=== PATIENT | female | born 1950 | race Caucasian/White ===

== ENCOUNTER → 2019-12-04 09:42 | Outpatient (CLI) | payer MEDICARE, SELFPAY ==
--- NOTE | ~2019-12-04 | MR_ITS ---
EXAMINATION: MR brain/brain stem wo/w con EXAM DATE: 12/04/2019 10:50 INDICATION: History of left frontal brain tumor removal 2018. Follow-up. TECHNIQUE: Magnetic resonance imaging (MRI) of the brain/brain stem obtained without contrast. Sagit zoey T1, axial diffusion, gradient echo (T2*), T1, T2, FLAIR sequences obtained. Patient was then inj ected with 20 cc intravenous Multihance contrast. Axial and coronal postcontrast T1 weighted sequence s obtained. Correlation is made to head CT 06/19/2017. FINDINGS: Previous CT had large left frontal mass believed to be extra-axial. Correlate with histolog y. In this location there is now moderate-sized region of encephalomalacia with overlying craniotomy defect. Some adjacent cortical T1 hyperintensity consistent with laminar necrosis. There is ex vacuo dilation of the left lateral ventricle. No obstructive hydrocephalus, acute infarction or extra-axial collections. There is no acute hemorrhage seen on the T2*, a susceptibility sensitive sequence. Flow voids are seen in the cerebral arteries on the T2 weighted sequences consistent with their expected patency. Small right maxillary sinus mucous retention cyst. Right-sided cataract surgery. There are n o areas of abnormal enhancement on the post contrast images. IMPRESSION: 1. Left frontal encephalomalacia without evidence of local recurrence. Reviewed, dictated and finalized at location B.
[2019-12-04 10:26] LABS: Estimated Glomerular Filt Rate > 60
== END ==
PROVIDERS: PCP Nurse Practitioner Family; Visit Provider Nurse Practitioner Family
DX: G93.89 Other specified disorders of brain (principal)
CPT/HCPCS: 70553; A9577

== ENCOUNTER 2022-01-11 14:12 | Emergency (ER) | payer MEDICARE, SELFPAY ==
--- NOTE | ~2022-01-11 | US_ITS ---
EXAMINATION: US pelvic complete w TV DATE: 01/11/2022 17:37 INDICATION: vaginal bleeding TECHNIQUE: Multiple transabdominal and endovaginal sonographic images of the pelvis were obtained. COMPARISON: CT abdomen and pelvis 10/10/2018 FINDINGS: Uterus: 10.0 x 5.4 x 4.7 cm. Endometrial complex measures 20 mm mm. Poor visualization of the uterus and endometrial stripe with the endovaginal probe. Right Ovary: Not visualized. Left Ovary: Not visualized. There is no free fluid in the pelvis. IMPRESSION: Limited examination. Neither ovary is visualized. Thickened endometrium measuring up to 20 mm, recomm end gynecology referral and consideration for endometrial biopsy. Reviewed, dictated and finalized at location K. IMPRESSION: Limited examination. Neither ovary is visualized. Thickened endometrium measuri ng up to 20 mm, recommend gynecology referral and consideration for endometrial biopsy.
[2022-01-11 15:09] VITALS: BP 177/78; PULSE 79; RESP 16; TEMP 36.2; O2SAT 94
[2022-01-11 15:24] LABS: Basophils Absolute Auto 0.1 K/mm3 (0.0-0.1); Basophils Percent Auto 0.5 % (0.2-1.2); Eosinophils Absolute Auto 0.4 K/mm3 (0-0.3); Eosinophils Percent Auto 2.9 % (0-4.4); Hematocrit 43.2 % (37.0-47.0); Hemoglobin 13.5 g/dL (12.0-15.0); Immature Granulocyte Absolute 0.04 K/mm3 (0.00-0.031); Immature Granulocyte Percent A 0.3 % (0-0.5); Lymphocytes Absolute Auto 3.83 K/mm3 (0.9-3.2); Lymphocytes Percent Auto 29.7 % (18.3-44.2); Mean Corpuscular HGB Conc 31.3 g/dl (32-36); Mean Corpuscular Volume 99.1 fl (80-100); Monocytes Absolute Auto 1.1 K/mm3 (0.1-0.6); Monocytes Percent Auto 8.6 % (2.6-8.5); Neutrophils Absolute Auto 7.5 K/mm3 (1.3-6.7); Platelet Count Result 345 k/mm3 (150-375); Red Blood Count 4.36 M/mm3 (4.2-5.4); Red Cell Distribution Width 13.5 % (11.5-14.5); White Blood Count 12.9 K/mm3 (4.5-10.0)
[2022-01-11 15:34] LABS: Alanine Aminotransferase 24 U/L (6-35); Albumin Level 4.4 g/dL (3.5-5.1); Alkaline Phosphatase 134 U/L (38-126); Anion Gap 10 mmol/L (8-16); Aspartate Amino Transferase 21 U/L (14-36); Bilirubin,Total 0.4 mg/dL (0.2-1.3); Blood Urea Nitrogen 22 mg/dL (7-17); Calcium 9.5 mg/dL (8.4-10.2); Carbon Dioxide 29 mmol/L (22-30); Chloride 100 mmol/L (98-107); Estimated CRCL calculation 72 ml/min; Estimated Glomerular Filt Rate > 60; Glucose 142 mg/dL (65-110); Potassium 4.6 mmol/L (3.4-5.0); Sodium 139 mmol/L (137-145)
[2022-01-11 17:02] VITALS: BP 153/91; PULSE 73; RESP 18; O2SAT 91
--- NOTE | 2022-01-11 17:46 | ED.GENADULT ---
HPI - General Adult General Chief complaint: Vaginal Bleeding Stated complaint: vaginal bleeding Time Seen by Provider: 01/11/22 17:02 History of Present Illness HPI narrative: 71-year-old male presented the emergency department for evaluation of vaginal bleeding. Patient states she went through menopause approximately 15 years ago. Patient has not had follow-up with [facility] in many years. Patient states approximate 2 weeks ago she began having some spotting and the spotting did increase to vaginal bleeding. Patient states that she was set up to see Dr. Barcenas but she wanted to have this taken care of earlier so she presented to the emergency department for evaluation. Patient denies any lightheaded dizziness. Patient denies any pain with this. Related Data Allergies Allergy/AdvReac Type Severity Reaction Status Date / Time codeine Allergy Unknown Nausea and Verified 01/11/22 17:03 Vomiting Review of Systems Review of Systems: CONSTITUTIONAL: Denies fever, chills, or sweats. EYES: Denies visual changes, redness, or discharge. ENT: Denies rhinorrhea, congestion, sore throat, or otalgia. CARDIOVASCULAR: Denies chest pain, palpitations, or edema. RESPIRATORY: Denies cough or dyspnea. GASTROINTESTINAL: Denies abdominal pain, nausea, vomiting, or diarrhea. GENITOURINARY: Denies dysuria or hematuria. See HPI, vaginal bleeding. SKIN: Denies rash or itching. MUSCULOSKELETAL: Denies back pain, joint pain, or myalgia. NEUROLOGIC: Denies headache, numbness, or weakness. [facility] Family History Family History (Updated 12/14/14 @ 16:53 by DOCTOR UNKNOWN) Father Cerebrovascular accident Family history of coronary artery disease Social History Social History Alcohol intake: never Exam Narrative: APPEARANCE: Well appearing, no pain, no distress, well-nourished. HEAD: normocephalic, atraumatic. EYES: PERRLA/EOMI, conjunctivae clear. NOSE: Normal no drainage NECK: Supple. No adenopathy, no masses. RESPIRATORY: Airway patent, respirations nonlabored. Clear to auscultation bilaterally, no rales, rhonchi, wheezing. CARDIOVASCULAR: Regular rate and rhythm without murmurs rubs or gallops. ABDOMINAL: Soft, nontender, nondistended, normal bowel sounds Genitourinary: Bleeding is coming from the cervix. Cervix is closed. No vaginal laceration. No rapid refilling of the vaginal vault. No evidence of hemorrhage MUSCULOSKELETAL: Moves all extremities. Strength/ROM intact, No edema, No calf tenderness. NEURO: Alert. Cranial nerves II through XII intact. Grossly intact SKIN: Warm, dry. Normal Color Course Course Emergency Course: Patient hemoglobin is stable. Patient had normal vital signs. Discussed case with [facility], Dr. Mtz. He was updated on the results of the imaging and was comfortable to plan patient having close outpatient follow-up. Patient and family were also encouraged to have close follow-up. All question concerns were addressed. Vital Signs Vital signs: Vital Signs Temperature 97.2 F L 01/11/22 15:09 Pulse Rate 79 01/11/22 15:09 Respiratory Rate 16 01/11/22 15:09 Blood Pressure 177/78 H 01/11/22 15:09 Pulse Oximetry 94 01/11/22 15:09 Temperature 98.3 F 01/11/22 18:50 Pulse Rate 84 01/11/22 18:50 Respiratory Rate 20 01/11/22 18:50 Blood Pressure 142/80 H 01/11/22 18:50 Pulse Oximetry 94 01/11/22 18:50 Medical Decision Making Vital Signs Vital Signs: Vital Signs Temperature 97.2 F L 01/11/22 15:09 Pulse Rate 79 01/11/22 15:09 Respiratory Rate 16 01/11/22 15:09 Blood Pressure 177/78 H 01/11/22 15:09 Pulse Oximetry 94 01/11/22 15:09 Temperature 98.3 F 01/11/22 18:50 Pulse Rate 84 01/11/22 18:50 Respiratory Rate 20 01/11/22 18:50 Blood Pressure 142/80 H 01/11/22 18:50 Pulse Oximetry 94 01/11/22 18:50 Lab Data Lab results reviewed: Yes I reviewed the patient's lab results. Result diagrams: 01/11/22 15:17
[2022-01-11 18:50] VITALS: BP 142/80; PULSE 84; RESP 20; TEMP 36.8; O2SAT 94
== END 2022-01-11 18:57 | disposition home or self-care (01) ==
PROVIDERS: Emergency Medicine; Emergency Provider Emergency Medicine; PCP Nurse Practitioner Family
DX: N93.9 Abnormal uterine and vaginal bleeding, unspecified (principal)
CPT/HCPCS: 36415; 76830; 76856; 80053; 85025; 86850; 86900; 86901; 99284

== ENCOUNTER 2022-01-20 02:04 | Day surgery (SDC) | payer MEDICARE, SELFPAY ==
[2022-01-13 09:26] VITALS: BMI 54.6
--- NOTE | 2022-01-13 09:47 | PC.NURSE ---
Report to the Outpatient Waiting Room, entrance under the green pavilion located off [facility], at time 1130 on date __01/20/22 . Planned Procedure Time: _1330 . Time changes happen often and if your time is changed the preop area will call you the afternoon before. - You and your visitor will be asked to self-screen and do not enter if you have any COVID symptoms. - We encourage only one visitor and NO visitors under age 16 are allowed at this time. Your visitor will receive communication by the phone number that is given day of service. - The patient visitor is requested to social distance or may leave the building when not with patient due to restrictions. - A mask is required within the hospital. Patients may have clear liquids (water, carbonated beverages, clear teas, apple juice) until 3 hours prior to surgery with a maximum of 20 ounces. - No food from midnight until time of surgery - Infants may have breast milk until 4 hours before surgery, infant formula 6 hours prior to surgery. - Children will be allowed to drink immediately following surgery. If applicable, please bring a bottle or sippy cup to assist with drinking. Juice, water, soda, and popsicles are readily available. For infants on formula, please bring formula the day of surgery. Pacifiers are allowed. Take the following medications with a SIP of water the morning of surgery: __ALPRAZOLAM,AMLODIPINE,GABAPENTIN Medications to discontinue per physician ____ALL VITAMINS AND SUPPLEMENTS 3 DAYS PRE OP Date to take last dose 01/16/22 Please no make-up, nail south korean, hairspray, perfume, deodorant, or body powder the day of surgery. No jewelry (including any body piercings) or valuables the day of surgery, leave them at home. Please take a shower or bath the night before, or the morning of, surgery with an antibacterial soap. Wear comfortable, loose fitting clothing. Children are encouraged to wear pajamas. - Jewelry must be removed prior to entering the operating room. Rings and piercings that are not removed may be cut off. - The hospital will not accept responsibility for valuables. - Please leave all valuables, including medications, at home the day of surgery. If you are going home after surgery, a licensed utility worker driver must drive you home. - NO public transportation without another adult. - We recommend that an adult stay with you for 24 hours following discharge. - We also recommend that you do not drive, make important decision, drink alcoholic beverages, or take any drugs that were not prescribed by your health care provider for at least 24 hours after your discharge time. For Pediatric surgeries, we recommend two adults accompany the child home. Follow any additional instructions given to you from your surgeon. If you or anyone in your household have experienced Covid symptoms in the past week, please notify your surgeon or the nurse liaison at the phone number below for possible testing. Telephone instructions given to _PATIENT AND DAUGHTER KHAI PEREZ/ FAXED 01/13/22 AT 0918 TO [facility] ATTEN: FEMI #[phone] dat asked if any additional questions and then verbalized understanding. Patient advised to call surgeon office or pre surgery nurse liaison [phone] if any additional questions.
--- NOTE | 2022-01-17 11:40 | PM.IMHP ---
H&P: HPI History of Present Illness Date/Time: 01/17/22 11:40 Chief Complaint: Postmenopausal bleeding Narrative: To 71-year-old female who is admitted through the ER with complaints of vaginal bleeding. She is admitted for diagnostic hysteroscopy dilatation curettage. Risks and benefits have been reviewed in full. She received the ACO[employer] handouts entitled hysteroscopy as well as dilatation curettage respectively. She had all questions answered and asked to proceed PMF Family History Family History Father Cerebrovascular accident Family history of coronary artery disease Social History Social History Smoking packs per day: 0.5 Smoking cigarettes per day: 10.0 Years smoked: 38 Smoking pack-years: 19.00 Smoking status: Current every day smoker Tobacco type: cigarettes Alcohol intake: never Living arrangements: assisted living Spiritual care concerns: No Meds Home Medications and Allergies Home Medications Medication Instructions Recorded Confirmed Type acetaminophen 650 mg 1,300 mg PO Q8-10H PRN Pain 01/13/22 01/13/22 History tablet,extended release alprazolam 0.5 mg tablet,extended 0.5 mg PO DAILY 01/13/22 01/13/22 History release 24 hr amlodipine 2.5 mg tablet 2.5 mg PO DAILY 01/13/22 01/13/22 History atorvastatin 40 mg tablet 40 mg PO DAILY 01/13/22 01/13/22 History cyanocobalamin (vitamin B-12) 1,000 mcg PO DAILY 01/13/22 01/13/22 History 1,000 mcg tablet diclofenac sodium 1 % topical gel 2 g topical QID 01/13/22 01/13/22 History docusate sodium 100 mg tablet 100 mg PO PRN PRN Constipation 01/13/22 01/13/22 History ergocalciferol (vitamin D2) 1,250 50,000 unit PO WEEKLY 01/13/22 01/13/22 History mcg (50,000 unit) capsule (Vitamin D2) furosemide 40 mg tablet 40 mg PO PRN PRN Edema 01/13/22 01/13/22 History gabapentin 300 mg capsule 300 mg PO BID 01/13/22 01/13/22 History ibuprofen 800 mg tablet 800 mg PO TID PRN Pain 01/13/22 01/13/22 History insulin glargine 100 unit/mL (3 66 unit subcut DAILY 01/13/22 01/13/22 History mL) subcutaneous pen (Lantus Solostar U-100 Insulin) losartan 25 mg tablet 25 mg PO DAILY 01/13/22 01/13/22 History magnesium oxide 400 mg (241.3 mg 400 mg PO BID 01/13/22 01/13/22 History magnesium) tablet melatonin 5 mg tablet 5 mg PO HS 01/13/22 01/13/22 History mirabegron 50 mg tablet,extended 50 mg PO HS 01/13/22 01/13/22 History release 24 hr (Myrbetriq) nystatin 100,000 unit/gram topical 1 applic topical PRN PRN Rash 01/13/22 01/13/22 History cream quetiapine 25 mg tablet 25 mg PO HS 01/13/22 01/13/22 History semaglutide 1 mg/dose (4 mg/3 mL) 1 mg subcut WEEKLY 01/13/22 01/13/22 History subcutaneous pen injector (Ozempic) tamsulosin 0.4 mg capsule 0.4 mg PO HS 01/13/22 01/13/22 History triamcinolone acetonide 0.1 % 1 applic topical PRN PRN Itching 01/13/22 01/13/22 History topical cream Allergies Allergy/AdvReac Type Severity Reaction Status Date / Time codeine Allergy Unknown Nausea and Verified 01/13/22 07:43 Vomiting Exam Const: General: cooperative, healthy appearing, comfortable and overweight Orientation/consciousness: oriented to person, oriented to place and oriented to time Resp: Effort & Inspection: normal respiratory effort Cardio: Rate: regular rate Rhythm: regular rhythm Heart sounds: S1 normal heart sound present and S2 normal heart sound present GI: Inspection: normal to inspection and obesity : External Female Exam: normal external appearance Speculum Exam - Vagina: normal appearance of the vagina and vaginal bleeding Bimanual exam- vagina & uterus: uterine size normal Bimanual Exam- Adnexa, other: normal adnexae Assessment and Plan Assessment and plan (1) Postmenopausal bleeding: Code(s): N95.0 - Postmenopausal bleeding Status: Acute Plan Hysteroscopy/
--- NOTE | 2022-01-20 06:53 | WPDHPUPDATE1 ---
History and Physical Update Update Date/Time: 01/20/22 06:53 History and Physical has been reviewed, including an updated exam of the patient. There are NO changes in the patient's condition. Risks, benefits, and alternatives have been discussed and questions answered. Patient agrees to proceed with procedure.
[2022-01-20] MEDS: ACETAMINOPHEN 500 MG TABLET 1000 MG PO (11:28)
--- NOTE | 2022-01-20 11:36 | WPDANESEPPF ---
Anes - Initial Pre Proc Eval Procedure: Operation Date: 01/20/22 13:30 Proposed Procedures p Hysteroscopy, Dilation and Curettage - Apollo Mendez MD Date/Time: 01/20/22 11:36 Surgeon: Apollo Mendez MD Pre Op Diagnosis: post menopausal bleeding Patient Data Age: 71 Gender: F Height: 1.57 m Weight: 135.65 kg Allergies Allergy/AdvReac Type Severity Reaction Status Date / Time codeine Allergy Unknown Nausea and Verified 01/20/22 11:26 Vomiting Home Medications Medication Instructions Recorded Confirmed Type acetaminophen 650 mg 1,300 mg PO Q8-10H PRN Pain 01/13/22 01/20/22 History tablet,extended release alprazolam 0.5 mg tablet,extended 0.5 mg PO DAILY 01/13/22 01/20/22 History release 24 hr amlodipine 2.5 mg tablet 2.5 mg PO DAILY 01/13/22 01/20/22 History atorvastatin 40 mg tablet 40 mg PO DAILY 01/13/22 01/20/22 History cyanocobalamin (vitamin B-12) 1,000 mcg PO DAILY 01/13/22 01/20/22 History 1,000 mcg tablet diclofenac sodium 1 % topical gel 2 g topical QID 01/13/22 01/20/22 History docusate sodium 100 mg tablet 100 mg PO PRN PRN Constipation 01/13/22 01/20/22 History ergocalciferol (vitamin D2) 1,250 50,000 unit PO WEEKLY 01/13/22 01/20/22 History mcg (50,000 unit) capsule (Vitamin D2) furosemide 40 mg tablet 40 mg PO PRN PRN Edema 01/13/22 01/20/22 History gabapentin 300 mg capsule 300 mg PO BID 01/13/22 01/20/22 History ibuprofen 800 mg tablet 800 mg PO TID PRN Pain 01/13/22 01/20/22 History insulin glargine 100 unit/mL (3 66 unit subcut DAILY 01/13/22 01/20/22 History mL) subcutaneous pen (Lantus Solostar U-100 Insulin) losartan 25 mg tablet 25 mg PO DAILY 01/13/22 01/20/22 History magnesium oxide 400 mg (241.3 mg 400 mg PO BID 01/13/22 01/20/22 History magnesium) tablet melatonin 5 mg tablet 5 mg PO HS 01/13/22 01/20/22 History mirabegron 50 mg tablet,extended 50 mg PO HS 01/13/22 01/20/22 History release 24 hr (Myrbetriq) nystatin 100,000 unit/gram topical 1 applic topical PRN PRN Rash 01/13/22 01/20/22 History cream quetiapine 25 mg tablet 25 mg PO HS 01/13/22 01/20/22 History semaglutide 1 mg/dose (4 mg/3 mL) 1 mg subcut WEEKLY 01/13/22 01/20/22 History subcutaneous pen injector (Ozempic) tamsulosin 0.4 mg capsule 0.4 mg PO HS 01/13/22 01/20/22 History triamcinolone acetonide 0.1 % 1 applic topical PRN PRN Itching 01/13/22 01/20/22 History topical cream Patient hx anesthesia problems: none Family hx anesthesia problems: none Results Review: All pre-operative results and documents have been reviewed as part of the pre-operative evaluation. [facility] Past Medical History Medical History Anxiety Depression Diabetes Neuropathy Family History Family History Father Cerebrovascular accident Family history of coronary artery disease Social History Social History Smoking packs per day: 0.5 Smoking cigarettes per day: 10.0 Years smoked: 38 Smoking pack-years: 19.00 Smoking status: Current every day smoker Tobacco type: cigarettes Alcohol intake: never Living arrangements: assisted living Spiritual care concerns: No Anes - Eval Final PreProcedure Day of Procedure 01/20/22 11:36 Patient weight: super morbidly obese Heart: regular rate and rhythm Lungs: decreased breath sounds Airway: Mallampati scale class III Neurological: alert and oriented Last oral intake: >/= 8 hours ASA classification: III Emergent: no Anesthetic plan: proceed Anesthesia type and monitoring: general GIVS and standard monitoring Results Review: All pre-operative results and documents have been reviewed as part of the pre-operative evaluation. Informed Consent: The patient's anesthetic plan and its attendant risks and benefits were discussed with the patien
[2022-01-20 11:59] LABS: Glucose Point of Care 131 mg/dl (65-105)
[2022-01-20] MEDS: LACTATED RINGERS 1,000 ML 30 ML IV CONT (11:59)
[2022-01-20 12:06] VITALS: BP 140/56; PULSE 61; RESP 18; TEMP 37.1; O2SAT 93
[2022-01-20] MEDS: LIDOCAINE HCL 1% PF 30 ML VIAL 10 ML INFILTRATE (13:38)
--- NOTE | 2022-01-20 13:52 | P.OP_ITS ---
Procedure Note - Detailed Date of Procedure 01/20/22 Pre-op Diagnosis post menopausal bleeding Post-op Diagnosis Same Procedure Performed Hysteroscopy/ polypectomy/ dilatation and curettage Surgeon Apollo Mendez MD Anesthesia MAC and Local Indications 71-year-old with postmenopausal bleeding Findings uterus was mildly enlarged. There is a mass inside the uterus which showed looks suspicious for adenocarcinoma was biopsied. Description of Procedure Patient was prepped draped in normal sterile fashion placed in the dorsal lithotomy position. Under excellent IV sedation weighted speculum placed in p osterior fornix vagina. Anterior lip of the cervix grasped with a single-tooth tenaculum. 2.5cc of% xylocaine anesthesia was placed at 2, 4, 8:10 a.m. of the cervix. Uterus sounded to 9cm. Serial dilatation with fragmented dilators performed followed by passage of the 5mm visualizing hysteroscope. Normal saline was used as visualizing medium. Mass inside the uterus was noted and was difficult to traverse. Due to the large size of the patient the a biopsy with a polyp forcep was taken. The uterus was then scraped as well. The instruments were withdrawn and the patient was sent to recovery in satisfactory condition. All sponge, needle, instrument counts were correct. Estimated Blood Loss 5 Drains No Packing No Pathology Yes Complications No immediate complications Condition Stable Disposition PACU
[2022-01-20 13:54] VITALS: BP 135/63; PULSE 65; RESP 16; O2SAT 98
[2022-01-20 14:12] LABS: Glucose Point of Care 107 mg/dl (65-105)
[2022-01-20 14:25] VITALS: BP 164/77; PULSE 60
--- NOTE | 2022-01-20 14:40 | SUR.PHASEII ---
Dr. Sam aware of patient's BP and said it's ok for patient to return to assisted living and take home medication there.
[2022-01-20 14:50] VITALS: BP 134/102; PULSE 56
--- NOTE | 2022-01-20 15:33 | SUR.PHASEII ---
RN called [facility] and told a nurse to resume home medications especially BP medications.
== END 2022-01-20 15:14 | disposition home or self-care (01) ==
PROVIDERS: PCP Nurse Practitioner Family; Visit Provider Obstetrics & Gynecology
PROC: 0U5B8ZZ Destruction of Endometrium, Via Natural or Artificial Opening Endoscopic (ICD-10-PCS; CPT 58563; principal; 2022-01-20 13:30)
DX: N85.02 Endometrial intraepithelial neoplasia [EIN] (principal); N95.0 Postmenopausal bleeding; E11.40 Type 2 diabetes mellitus with diabetic neuropathy, unspecified; F41.9 Anxiety disorder, unspecified; F32.A Depression, unspecified; Z79.899 Other long term (current) drug therapy; Z79.4 Long term (current) use of insulin; F17.210 Nicotine dependence, cigarettes, uncomplicated; E66.01 Morbid (severe) obesity due to excess calories; Z68.43 Body mass index [BMI] 50.0-59.9, adult
CPT/HCPCS: 58558; 82948; 88305; A9270; J2250; J2704; J3010; J7030; J7120

== ENCOUNTER 2025-01-26 12:58 | Inpatient (IN) | payer MEDICARE, SELFPAY ==
[2025-01-26] VITALS (12 sets, daily range): BP systolic 98–142; BP diastolic 65–102; PULSE 80–116; RESP 10–19; TEMP 36.5–36.8; O2SAT 90–100; BMI 53.9
--- NOTE | ~2025-01-26 | US_ITS ---
EXAMINATION: US venous doppler [facility] DATE: 01/26/2025 15:09 INDICATION: Pain, swelling bilateral lower extremities. TECHNIQUE: Grayscale ultrasound images without and with compression and Doppler ultrasound images of the bilateral lower extremity veins were obtained including augmentation.. COMPARISON: None. FINDINGS: The visualized portions of right common femoral vein, profunda (deep) femoral vein, femoral vein, popliteal vein, peroneal veins, posterior tibial veins, and greater saphenous vein outflow are patent. The visualized portions of left common femoral vein, profunda femoral vein, femoral vein, popliteal vein, peroneal veins, posterior tibial veins, and greater saphenous vein outflow are patent. IMPRESSION: 1. No evidence of DVT noted in both lower extremities. 2. If clinical suspicion of DVT persists repeat study is recommended after one week for reevaluation to rule out extension of thrombus from the calf. Reviewed, dictated and finalized at location T. NSIC ACCOUNTANT
--- NOTE | ~2025-01-26 | CT_ITS ---
EXAMINATION: CT brain wo con DATE: 01/26/2025 14:41 INDICATION: Altered mental status TECHNIQUE: Computed tomography (CT) of the head was performed without intravenous contrast. The dose-length product was 605.33 mGy-cm. COMPARISON: None FINDINGS: Left frontoparietal craniotomy surgical changes with fixation hardware and interval removal of calcified mass described on the 2018 exam with postsurgical findings chronic. Moderate size area of encephalomalacia in the left frontal region. Mild diffuse volume loss and chronic microvascular ischemic appearing white matter changes. No large acute ischemic event, mass effect or hemorrhage. Calvarial structures with no acute or aggressive process identified. IMPRESSION: 1. No large acute ischemic event, mass effect or hemorrhage. 2. Chronic findings as above. Reviewed, dictated and finalized at location A. FIT SPECIALIST
--- NOTE | ~2025-01-26 | CT_ITS ---
EXAMINATION: CT abdomen pelvis w con DATE: 01/27/2025 08:25 INDICATION: Tender distended abdomen TECHNIQUE: Computed tomography (CT) of the abdomen and pelvis was performed with 100 mL Omnipaque-350 intravenous contrast. Automated exposure control and iterative reconstruction technique were employed. The dose-length product was 1608.84 mGy-cm. COMPARISON: CT dated 10/10/2018 FINDINGS: Small bowel posterior layering pleural effusions with partial collapse of the right lower lobe and additional dependent atelectasis along the posterior left lower lobe. Mild cardiomegaly. Aortic valve and mitral annular calcification. Small amount of atherosclerotic coronary artery calcification. No pericardial effusion. Diffuse hepatic steatosis. Gallbladder, spleen, pancreas and bilateral adrenal glands are normal. There are bilateral low-attenuation renal cysts the largest measuring 2.3 cm at the lower pole the right kidney. There is a 2.2 cm predominantly cystic exophytic lesion at the upper pole the right kidney with irregular peripheral enhancing wall which includes a peripheral 10 x 7 mm enh ancing nodular component as seen on coronal series 601, image 92 consistent with a Bosniak 4 lesion, highly likely to represent a renal cell carcinoma. Bowels including the appendix are normal. Bladder is normal. The uterus is not identified and has likely been surgically resected. Small bilateral fat- containing inguinal hernias. No free intraperitoneal gas or fluid. No pathologically enlarged abdominal or pelvic lymphadenopathy. Mild thoracolumbar dextroscoliosis with severe spondylosis. IMPRESSION: 1. No acute intra-abdominal/pelvic process. 2. 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 Recommend nonemergent urologic consultation. 3. Small bilateral pleural effusions with associated dependent atelectasis in both lower lobes, right greater than left. 4. Mild cardiomegaly. Reviewed, dictated and finalized at location A. [facility] DIRECTOR IMPRESSION: 1. No acute intra-abdominal/pelvic process. 2. 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 Recommend non emergent urologic consultation. 3. Small bilateral pleural effusions with associated dependent atelectasis in b oth lower lobes, right greater than left. 4. Mild cardiomegaly.
--- NOTE | ~2025-01-26 | XR_ITS ---
EXAMINATION: XR chest 2V DATE: 01/26/2025 15:15 INDICATION: Retention of fluid. TECHNIQUE: Frontal and lateral views of the chest were obtained. COMPARISON: Chest x-ray dated 06/19/2017. FINDINGS: Significant cardiomegaly. Atherosclerotic aorta. Small to moderate pleural effusion on the right side blunting of the costophrenic angle. Minimal blunting of left costophrenic angle. Upper lung brown are clear. IMPRESSION: 1. Cardiomegaly with atherosclerotic aorta. 2. [id number] right pleural effusion. Minimal blunting of left costophrenic angle. Reviewed, dictated and finalized at location T. LEATHER SETTER IMPRESSION: 1. Cardiomegaly with atherosclerotic aorta. 2. [id number] right pleural effusion. Minimal blunting of left costophre camacho angle.
--- NOTE | 2025-01-26 14:12 | ECG_ITS ---
Test Date: 2025-01-26 15:51:54 Measurements Intervals [place] Rate: 90 P: 0 WA: 0 QRS: -47 QRSD: 152 T: 73 QT: 407 QTc: 499 Interpretive Statements ATRIAL FIBRILLATION INTRAVENTRICULAR CONDUCTION DELAY Electronically Signed On 01-26-2025 20:03:32 FINISHING INSPECTOR by Gaudencio Rubio D.O
--- NOTE | 2025-01-26 14:12 | ED.AMS ---
HPI - Altered Mental Status General Chief Complaint: Altered Mental Status <Ifeoma Javed PA-C - Last Filed: 01/26/25 14:16> Stated Complaint: retaining fluid for past week, confusion x 4 days <Ifeoma Javed PA-C - Last Filed: 01/26/25 14:16> Time Seen by Provider: 01/26/25 14:10 <AMANDA Daniel Last Filed: 01/26/25 14:16> Focused HPI: Patient is a 74 y/o female who presents to the ED with report of confusion, fluid retention. Patient is a resident of [facility]. Family reports she has been increasingly confused over the past 4 days. She has also been noted to be retaining fluid in her legs. No known history of CHF. She is supposed to be on Lasix 40 mg up to 3 times a week as needed for edema. Patient states she has not been taking this very often as it makes her urinate frequently. She thinks she last had Lasix 2 days ago. She denies shortness of breath or chest pain. Denies fevers. Family states she was recently diagnosed with a urinary tract infection at the assisted living facility, but has not started antibiotics yet. They are concerned this may be causing her confusion or she may have recurrence of her brain tumor. GENERAL: Elderly, morbidly obese, and in no acute distress. HEAD: Normocephalic, atraumatic. CHEST: Clear to auscultation. ?No respiratory distress. HEART: Regular rate and rhythm.? Diffuse pitting edema BLE NEURO: ?Alert and oriented x3. No focal deficits Patient screened in triage and initial orders placed.? ?Additional care and disposition to be based upon?diagnostic testing and treatment. <Ifeoma Javed PA-C - Last Filed: 01/26/25 14:16> Source: patient and family <AMANDA Daniel Last Filed: 01/26/25 14:16> Mode of arrival: ambulatory <AMANDA Daniel Last Filed: 01/26/25 14:16> Limitations: no limitations <AMANDA Daniel Last Filed: 01/26/25 14:16> History of Present Illness HPI narrative: Patient 74-year-old female presents emergency department chief complaint of confusion and fluid retention. Patient is resident of [place] patient has been having increasing confusion over the last 4 days he also noticed that she has had increasing peripheral edema in her legs and up into her arms patient states that she is on Lasix patient does have prior history of a brain tumor that was removed at [place] many years ago a family reported that at times she has been very spacey <Alphonse Roy MD - Last Filed: 01/26/25 19:59> Related Data Home Medications: Home Medications ?Medication ?Instructions ?Recorded ?Confirmed ?Last Taken ?Type acetaminophen 650 mg 1,300 mg PO Q8-10H PRN Pain 01/13/22 01/20/22 Unknown History tablet,extended release alprazolam 0.5 mg tablet,extended 0.5 mg PO DAILY 01/13/22 01/20/22 Unknown History release 24 hr amlodipine 2.5 mg tablet 2.5 mg PO DAILY 01/13/22 01/20/22 01/20/22 08:00 History atorvastatin 40 mg tablet 40 mg PO DAILY 01/13/22 01/20/22 Unknown History cyanocobalamin (vitamin B-12) 1,000 mcg PO DAILY 01/13/22 01/20/22 Unknown History 1,000 mcg tablet diclofenac sodium 1 % topical gel 2 g topical QID 01/13/22 01/20/22 Unknown History docusate sodium 100 mg tablet 100 mg PO PRN PRN Constipation 01/13/22 01/20/22 Unknown History ergocalciferol (vitamin D2) 1,250 50,000 unit PO WEEKLY 01/13/22 01/20/22 Unknown History mcg (50,000 unit) capsule (Vitamin D2) furosemide 40 mg tablet 40 mg PO PRN PRN Edema 01/13/22 01/20/22 Unknown History gabapentin 300 mg capsule 300 mg PO BID 01/13/22 01/20/22 Unknown History ibuprofen 800 mg tablet 800 mg PO TID PRN Pain 01/13/22 01/20/22 Unknown History insulin glargine 100 unit/mL (3 66 unit subcut DAILY 01/13/22 01/20/22 Unknown History mL) subcutaneous pen (Lantus Solostar U-100 Insulin) losartan 25 mg tablet 25 mg PO DAILY 01/13/22 01/20/22 Unknown History magnesium oxide 400 mg (241.3 mg 400 mg PO BID 01/13/22 01/20/22 Unknown History magnesium) tablet melatonin 5 mg tablet 5 mg PO HS 01/13/22 01/20/22 Unknown History mirabegron 50 mg tablet,extended 50 mg PO HS 01/13/22 01/20/22 Unknown History release 24 hr (Myrbetriq) nystatin 100,000 unit/gram topical 1 applic topical PRN PRN Rash 01/13/22 01/20/22 Unknown History cream quetiapine 25 mg tablet 25 mg PO HS 01/13/22 01/20/22 Unknown History semaglutide 1 mg/dose (4 mg/3 mL) 1 mg subcut WEEKLY 01/13/22 01/20/22 Unknown History subcutaneous pen injector (Ozempic) tamsulosin 0.4 mg capsule 0.4 mg PO HS 01/13/22 01/20/22 Unknown History triamcinolone acetonide 0.1 % 1 applic topical PRN PRN Itching 01/13/22 01/20/22 Unknown History topical cream <Ifeoma Javed PA-C - Last Filed: 01/26/25 14:16> Allergies/Adverse Reactions: Allergies Allergy/AdvReac Type Severity Reaction Status Date / Time codeine Allergy Unknown Nausea and Verified 01/26/25 14:12 Vomiting <Ifeoma Javed PA-C - Last Filed: 01/26/25 14:16> Review of Systems Review of Systems: A 10 system review of systems was completed on the patient and is negative except for what is stated in the HPI. Nursing and ancillary documentation was reviewed. <Alphonse oRy MD - Last Filed: 01/26/25 19:59> [facility] Past Medical History Medical History: Medical History Depression Anxiety Neuropathy Diabetes <Ifeoma Javed PA-C - Last Filed: 01/26/25 14:16> Family History Family History: Family History Father Cerebrovascular accident Family history of coronary artery disease <Ifeoma Javed PA-C - Last Filed: 01/26/25 14:16> Social History Social History: Social History Smoking packs per day: 0.5 Smoking cigarettes per day: 10.0 Years smoked: 38 Smoking pack-years: 19.00 Smoking status: Current every day smoker Tobacco type: cigarettes Alcohol intake: never Living arrangements: assisted living Spiritual care concerns: No <Ifeoma Javed PA-C - Last Filed: 01/26/25 14:16> Exam Narrative: GENERAL: Well-appearing, well-nourished, and in no acute distress. HEAD: Normocephalic, atraumatic. EYES: PERRLA and EOMI. ENT: Nares clear, no rhinorrhea or epistaxis. Mucous membranes moist. NECK: Supple. CHEST: Clear to auscultation. No respiratory distress. HEART: irregular rate and rhythm. No murmur heard. Normal peripheral pulses. ABDOMEN: Soft, nontender, nondistended, normal active bowel sounds. EXTREMITIES: Normal range of motion. 2+ edema. SKIN: Warm, dry, no rash. NEURO: No focal deficits. Alert and oriented x3. PSYCH: Normal mood and affect. <Alphonse Roy MD - Last Filed: 01/26/25 19:59> Course Vital Signs Vital signs: Vital Signs Temperature 36.5 C 01/26/25 13:59 Pulse Rate 80 01/26/25 13:59 Respiratory Rate 19 01/26/25 13:59 Blood Pressure 122/94 H 01/26/25 13:59 Pulse Oximetry 94 01/26/25 13:59 Oxygen Delivery Room Air 01/26/25 13:59 Temperature 36.8 C 01/26/25 19:01 Pulse Rate 103 H 01/26/25 19:01 Respiratory Rate 12 01/26/25 19:01 Blood Pressure 116/82 01/26/25 19:01 Pulse Oximetry 93 01/26/25 19:25 Oxygen Delivery Room Air 01/26/25 13:59 <Ifeoma Javed PA-C - Last Filed: 01/26/25 14:16> Vital Signs Temperature 36.5 C 01/26/25 13:59 Pulse Rate 80 01/26/25 13:59 Respiratory Rate 19 01/26/25 13:59 Blood Pressure 122/94 H 01/26/25 13:59 Pulse Oximetry 94 01/26/25 13:59 Oxygen Delivery Room Air 01/26/25 13:59 Temperature 36.8 C 01/26/25 19:01 Pulse Rate 103 H 01/26/25 19:01 Respiratory Rate 12 01/26/25 19:01 Blood Pressure 116/82 01/26/25 19:01 Pulse Oximetry 93 01/26/25 19:25 Oxygen Delivery Room Air 01/26/25 13:59 <Alphonse Roy MD - Last Filed: 01/26/25 19:59> MDM - Altered Mental Status MDM Narrative Medical decision making narrative: MSE by HANNY in triage <Ifeoma Javed PA-C - Last Filed: 01/26/25 14:16> Lab Data Result diagrams: 01/26/25 15:53 01/26/25 15:53 <Ifeoma Javed PA-C - Last Filed: 01/26/25 14:16> Labs: Lab Results 01/26/25 01/26/25 Range/Units 15:53 18:51 WBC 9.2 (4.5-10.0) K/mm3 RBC 4.64 (4.2-5.4) M/mm3 Hgb 14.1 (12.0-15.0) g/dL Hct 45.8 (37.0-47.0) % MCV 98.7 (80-100) fl MCH 30.4 (26-34) pg MCHC 30.8 L (32-36) g/dl RDW 14.1 (11.5-14.5) % Plt Count 364 (150-375) k/mm3 MPV 9.8 (7.4-10.4) fl Immature Gran % (Auto) 0.2 (0-0.5) % Neut % (Auto) 52.1 (45.5-73.1) % Lymph % (Auto) 36.5 (18.3-44.2) % [place] % (Auto) 8.4 (2.6-8.5) % Eos % (Auto) 2.1 (0-4.4) % Baso % (Auto) 0.7 (0.2-1.2) % Lymph # (Auto) 3.35 H (0.9-3.2) K/mm3 [place] # (Auto) 0.8 H (0.1-0.6) K/mm3 Eos # (Auto) 0.2 (0-0.3) K/mm3 Baso # (Auto) 0.1 (0.0-0.1) K/mm3 Abs Immat Gran (auto) 0.02 (0.00-0.031) K/mm3 Absolute Neuts (auto) 4.8 (1.3-6.7) K/mm3 Absolute Nucleated RBC 0.000 (0.0-0.012) K/mm3 Nucleated RBC % 0.0 (0.0-0.2) % PT 13.3 (11.1-14.7) Seconds INR 1.0 APTT 27.9 (22.3-36.8) Seconds Sodium 140 (137-145) mmol/L Potassium 4.1 (3.4-5.0) mmol/L Chloride 101 (98-107) mmol/L Carbon Dioxide 33 H (22-30) mmol/L Anion Gap 6 (4-12) mmol/L BUN 14 D (7-17) mg/dL Creatinine 0.76 (0.7-1.0) mg/dL Estim Creat Clear Calc Not Reportable Estimated GFR > 60 (59 - ) Glucose 68 (65-110) mg/dL Calcium 9.7 (8.4-10.2) mg/dL Total Bilirubin 0.6 (0.2-1.3) mg/dL AST 28 (14-36) U/L ALT 14 (6-35) U/L Alkaline Phosphatase 128 H (38-126) U/L NT-Pro-B Natriuret Pep 1710 H (19.9-100) pg/mL Total Protein 7.4 (6.3-8.2) g/dL Albumin 4.2 (3.5-5.1) g/dL Urine Color Dark yellow (Yellow) Urine Appearance Clear (Clear) Urine pH 5.5 (5.0-9.0) Ur Specific [place] 1.030 (1.001-1.035) Urine Protein 1+ H (Negative) mg/dL Urine Glucose (UA) Negative (Negative) mg/dL Urine Ketones Trace H (Negative) mg/dL Ur Blood (Man) Negative (Negative) Urine Nitrate Negative (Negative) Urine Bilirubin Negative (Negative) Urine Urobilinogen 1.0 (<2.0) mg/dL Leukocyte Esterase Rfl Negative (Negative) HOLA/UL Urine RBC 0-2 (0-2) /hpf Urine WBC 0-5 (0-3) /hpf Ur Squamous Epith Cells None seen (Few) /hpf Urine Bacteria None seen /hpf Urine Casts 0-2 <Ifeoma Javed PA-C - Last Filed: 01/26/25 14:16> Lab Results 01/26/25 01/26/25 Range/Units 15:53 18:51 WBC 9.2 (4.5-10.0) K/mm3 RBC 4.64 (4.2-5.4) M/mm3 Hgb 14.1 (12.0-15.0) g/dL Hct 45.8 (37.0-47.0) % MCV 98.7 (80-100) fl MCH 30.4 (26-34) pg MCHC 30.8 L (32-36) g/dl RDW 14.1 (11.5-14.5) % Plt Count 364 (150-375) k/mm3 MPV 9.8 (7.4-10.4) fl Immature Gran % (Auto) 0.2 (0-0.5) % Neut % (Auto) 52.1 (45.5-73.1) % Lymph % (Auto) 36.5 (18.3-44.2) % [place] % (Auto) 8.4 (2.6-8.5) % Eos % (Auto) 2.1 (0-4.4) % Baso % (Auto) 0.7 (0.2-1.2) % Lymph # (Auto) 3.35 H (0.9-3.2) K/mm3 [place] # (Auto) 0.8 H (0.1-0.6) K/mm3 Eos # (Auto) 0.2 (0-0.3) K/mm3 Baso # (Auto) 0.1 (0.0-0.1) K/mm3 Abs Immat Gran (auto) 0.02 (0.00-0.031) K/mm3 Absolute Neuts (auto) 4.8 (1.3-6.7) K/mm3 Absolute Nucleated RBC 0.000 (0.0-0.012) K/mm3 Nucleated RBC % 0.0 (0.0-0.2) % PT 13.3 (11.1-14.7) Seconds INR 1.0 APTT 27.9 (22.3-36.8) Seconds Sodium 140 (137-145) mmol/L Potassium 4.1 (3.4-5.0) mmol/L Chloride 101 (98-107) mmol/L Carbon Dioxide 33 H (22-30) mmol/L Anion Gap 6 (4-12) mmol/L BUN 14 D (7-17) mg/dL Creatinine 0.76 (0.7-1.0) mg/dL Estim Creat Clear Calc Not Reportable Estimated GFR > 60 (59 - ) Glucose 68 (65-110) mg/dL Calcium 9.7 (8.4-10.2) mg/dL Total Bilirubin 0.6 (0.2-1.3) mg/dL AST 28 (14-36) U/L ALT 14 (6-35) U/L Alkaline Phosphatase 128 H (38-126) U/L NT-Pro-B Natriuret Pep 1710 H (19.9-100) pg/mL Total Protein 7.4 (6.3-8.2) g/dL Albumin 4.2 (3.5-5.1) g/dL Urine Color Dark yellow (Yellow) Urine Appearance Clear (Clear) Urine pH 5.5 (5.0-9.0) Ur Specific [place] 1.030 (1.001-1.035) Urine Protein 1+ H (Negative) mg/dL Urine Glucose (UA) Negative (Negative) mg/dL Urine Ketones Trace H (Negative) mg/dL Ur Blood (Man) Negative (Negative) Urine Nitrate Negative (Negative) Urine Bilirubin Negative (Negative) Urine Urobilinogen 1.0 (<2.0) mg/dL Leukocyte Esterase Rfl Negative (Negative) HOLA/UL Urine RBC 0-2 (0-2) /hpf Urine WBC 0-5 (0-3) /hpf Ur Squamous Epith Cells None seen (Few) /hpf Urine Bacteria None seen /hpf Urine Casts 0-2 <Alphonse Roy MD - Last Filed: 01/26/25 19:59> Discharge Plan Discharge Clinical Impression: Atrial fibrillation, Edema, peripheral, Elevated brain natriuretic peptide (BNP) level, Pleural effusion <Ifeoma Javed PA-C - Last Filed: 01/26/25 14:16> Patient Disposition: Still a Patient <Ifeoma Javed PA-C - Last Filed: 01/26/25 14:16> Condition: Stable <Ifeoma Javed PA-C - Last Filed: 01/26/25 14:16> Patient Language: [place] Citizen <Ifeoma Javed PA-C - Last Filed: 01/26/25 14:16> Prescriptions: No Action quetiapine 25 mg tablet 25 mg PO HS atorvastatin 40 mg tablet 40 mg PO DAILY cyanocobalamin (vitamin B-12) 1,000 mcg tablet 1,000 mcg PO DAILY amlodipine 2.5 mg tablet 2.5 mg PO DAILY tamsulosin 0.4 mg capsule 0.4 mg PO HS losartan 25 mg tablet 25 mg PO DAILY ergocalciferol (vitamin D2) [Vitamin D2] 1,250 mcg (50,000 unit) capsule 50,000 unit PO WEEKLY Patient Comments: TAKES ON TUESDAYS alprazolam 0.5 mg tablet extended release 24 hr 0.5 mg PO DAILY insulin glargine [Lantus Solostar U-100 Insulin] 100 unit/mL (3 mL) insulin pen 66 unit SUBCUT DAILY melatonin 5 mg tablet 5 mg PO HS Myrbetriq 50 mg tablet extended release 24 hr 50 mg PO HS Ozempic 1 mg/dose (4 mg/3 mL) pen injector 1 mg SUBCUT WEEKLY furosemide 40 mg Tablet 40 mg PO PRN PRN (Reason: Edema) ibuprofen 800 mg Tablet 800 mg PO TID PRN (Reason: Pain) triamcinolone acetonide 0.1 % Cream 1 applic TOPICAL PRN PRN (Reason: Itching) acetaminophen 650 mg Tablet Extended Release 1,300 mg PO Q8-10H PRN (Reason: Pain) magnesium oxide 400 mg (241.3 mg magnesium) tablet 400 mg PO BID gabapentin 300 mg capsule 300 mg PO BID docusate sodium 100 mg Tablet 100 mg PO PRN PRN (Reason: Constipation) diclofenac sodium 1 % gel 2 g TOPICAL QID nystatin 100,000 unit/gram Cream 1 applic TOPICAL PRN PRN (Reason: Rash) <Ifeoma Javed PA-C - Last Filed: 01/26/25 14:16> Follow-up/Referrals: Stone,Bel Owen, BALL TRUING MACHINE OPERATOR-BC [Primary Care Provider, Unknown] <Ifeoma Javed PA-C - Last Filed: 01/26/25 14:16>
[2025-01-26 16:06] LABS: Hematocrit 45.8 % (37.0-47.0); Hemoglobin 14.1 g/dL (12.0-15.0); Immature Granulocyte Percent A 0.2 % (0-0.5); Lymphocytes Absolute Auto 3.35 K/mm3 (0.9-3.2); Mean Corpuscular HGB Conc 30.8 g/dl (32-36); Mean Corpuscular Hemoglobin 30.4 pg (26-34); Mean Corpuscular Volume 98.7 fl (80-100); Nucleated Red Blood Cells Absolute Auto 0.000 K/mm3 (0.0-0.012); Nucleated Red Blood Cells Perc 0.0 % (0.0-0.2); Platelet Count Result 364 k/mm3 (150-375); Red Blood Count 4.64 M/mm3 (4.2-5.4); White Blood Count 9.2 K/mm3 (4.5-10.0)
[2025-01-26 16:20] LABS: INR 1.0; Prothrombin Time 13.3 Seconds (11.1-14.7)
[2025-01-26 16:21] LABS: Alanine Aminotransferase 14 U/L (6-35); Albumin Level 4.2 g/dL (3.5-5.1); Alkaline Phosphatase 128 U/L (38-126); Anion Gap 6 mmol/L (4-12); Aspartate Amino Transferase 28 U/L (14-36); Bilirubin,Total 0.6 mg/dL (0.2-1.3); Blood Urea Nitrogen 14 mg/dL (7-17); Calcium 9.7 mg/dL (8.4-10.2); Carbon Dioxide 33 mmol/L (22-30); Chloride 101 mmol/L (98-107); Estimated Glomerular Filt Rate > 60; Glucose 68 mg/dL (65-110); Partial Thromboplastin Time 27.9 Seconds (22.3-36.8); Potassium 4.1 mmol/L (3.4-5.0); Sodium 140 mmol/L (137-145); Total Protein 7.4 g/dL (6.3-8.2)
[2025-01-26 16:29] LABS: NT Pro B Type Natriuretic Pept 1710 pg/mL (19.9-100)
[2025-01-26 19:09] LABS: Add Urine Microscopic? YES; Appearance Urine Clear (Clear); Glucose Urine UA Negative (Negative); Leukocyte Esterase Ur Negative LEU/UL (Negative); Nitrate Urine Negative (Negative); Non Pathogenic Casts 0-2; Specific Grav Ur 1.030 (1.001-1.035)
[2025-01-26 20:35] LABS: Troponin I 0.012 ng/mL (0.000-0.034)
[2025-01-26] MEDS: ENOXAPARIN 100 MG/ML SYRINGE SUB-Q (21:25)
[2025-01-26] MEDS: FUROSEMIDE INJ 40 MG/4 ML VIAL IV PUSH (21:25)
[2025-01-26] MEDS: ENOXAPARIN 30 MG/0.3 ML SYRINGE SUB-Q (22:43)
--- NOTE | 2025-01-26 23:12 | WPCEDHO ---
ED Hand Off Checklist All vitals saved: Yes IV Site documented: Yes All med administrations documented: Yes Triage Note Triage Note Pt to ED with daughter co AMS 01/26/25 19:01 and retaining fluids for the last several days. On arrival pt A& Ox3. Daughter states pt was just dx with a UTI but that she has not yet been started on abx. Daughter states pt has hx of brain tumor and is concerned it is back this RN agrees with triage assessment pt is A&OX4 at this time Allergies codeine Allergy (Unknown, Verified 01/26/25 14:12) Nausea and Vomiting Family History (Last Reviewed 01/26/25 @ 19:28 by Alphonse Roy MD) Father Cerebrovascular accident Family history of coronary artery disease Active Medications including assessments/comments Enoxaparin Sodium (Enoxaparin 100 Mg/Ml Syringe) 100 mg SUB-Q Q12HR [facility] Last Admin: 01/26/25 21:25 Dose: 100 mg Documented By: ANDREA Sub Q Injection Site Document 01/26/25 21:25 ANDREA (Rec: 01/26/25 21:25 JOW [id number]) Sub Q Injection Site Sub Q Injection Site Abdomen, Left Enoxaparin Sodium (Enoxaparin 30 Mg/0.3 Ml Syringe) 30 mg SUB-Q Q12HR [facility] Last Admin: 01/26/25 22:43 Dose: 30 mg Documented By: ANDREA Sub Q Injection Site Document 01/26/25 22:43 ANDREA (Rec: 01/26/25 22:43 JOW [id number]) Sub Q Injection Site Sub Q Injection Site Abdomen, Right Furosemide (Furosemide Inj 40 Mg/4 Ml Vial) 40 mg IV PUSH Q12HR [facility] Last Admin: 01/26/25 21:25 Dose: 40 mg Documented By: ANDREA Interventions/Assessments Cardiac Monitoring Start: 01/26/25 13:00 Freq: Status: Active Protocol: Document 01/26/25 19:01 BIN (Rec: 01/26/25 19:01 KWANW [id number]) 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 Applied Pulse Rate (60-100) 110 H EKG Rythm Atrial Fibrillation EKG Ectopy PVC IV / Saline Lock, Insert Start: 01/26/25 14:12 Freq: STAT Status: Active Protocol: Document 01/26/25 15:48 SHANE (Rec: 01/26/25 15:49 JEK [id number]) IV Assessment Peripheral Access Left Antecubital IV Catheter Access Initiated IV Insertion Date 01/26/25 IV Insertion Time 15:48 Catheter Gauge 20 IV Insertion 1 Attempts Ultrasound Used for No Placement IV Site Assessment WNL IV Care and WNL,Dressing Applied, Dated, Timed, and Initialed Maintenance PA: Cardiovascular Assessment Start: 01/26/25 13:00 Freq: Status: Active Protocol: Document 01/26/25 19:03 KNW (Rec: 01/26/25 19:04 KNW [id number]) Cardiovascular Assessment Cardiovascular None Symptoms Skin Description Flushed Heart Sounds Normal Jugular Vein None Distention PA: Neurological Assessment Start: 01/26/25 13:00 Freq: Status: Active Protocol: Document 01/26/25 19:03 KNW (Rec: 01/26/25 19:04 KNW [id number]) Neurological Assessment Level of Alert,Awake Consciousness Arousable to Verbal Orientation Oriented to Person,Oriented to Place,Oriented to Time Neurological Weakness, General Symptoms Behavior Appropriate,Cooperative Facial Symmetry Symmetrical Speech Pattern Clear Ability to Swallow Normal Tongue Position Midline [place] Coma Scale Eyes Open Verbal Oriented and Alert Motor Follows Commands [place] Coma Total 15 Score PA: Respiratory Assessment Start: 01/26/25 13:00 Freq: Status: Active Protocol: Document 01/26/25 19:03 KNW (Rec: 01/26/25 19:04 KNW [id number]) Respiratory Assessment Symptoms None Effort Normal Pattern Regular Depth Normal Chest Expansion Symmetrical Anterior Upper Lobe(s) Phase Inspiratory & Expiratory Lung Sounds Clear Cough Description None Sputum Amount None Last Vital Signs Temperature 98.2 F 01/26/25 19:01 Pulse Rate 103 H 01/26/25 19:01 Respiratory Rate 12 01/26/25 19:01 Pulse Oximetry 93 01/26/25 19:25 Blood Pressure 116/82 01/26/25 19:01 Blood Pressure Mean 93 01/26/25 19:01 Blood Pressure Position Supine 01/26/25 19:01 Oxygen Delivery Room Air 01/26/25 13:59 Weight 133.9 kg 01/26/25 19:01 Last Result - Abnormals Only MCHC 30.8 g/dl (32-36) L 01/26/25 15:53 Lymph # (Auto) 3.35 K/mm3 (0.9-3.2) H 01/26/25 15:53 [place] # (Auto) 0.8 K/mm3 (0.1-0.6) H 01/26/25 15:53 Carbon Dioxide 33 mmol/L (22-30) H 01/26/25 15:53 Alkaline Phosphatase 128 U/L (38-126) H 01/26/25 15:53 NT-Pro-B Natriuret Pep 1710 pg/mL (19.9-100) H 01/26/25 15:53 Urine Protein 1+ mg/dL (Negative) H 01/26/25 18:51 Urine Ketones Trace mg/dL (Negative) H 01/26/25 18:51 Most Recent Suicide Severity Rating Suicide Severity Rating NO RISK INDICATED 01/26/25 19:01
--- NOTE | 2025-01-26 23:53 | ADMGEN ---
This patient, Jennifer Coyle, was admitted to IMU Room 206-02. Patient/family oriented to hospital policies and general routines including ID bracelet, bed and alarms, visiting hours, pain management, procedures, bathroom and other care routines, personal items, smoking policy, room service/diet, and visiting hours. Information on how to activate the Rapid Response Team has been discussed. Patient/Family are encouraged to report perceived risks to care and to ask questions if they do not understand what they are told or what they should do.
[2025-01-27] VITALS (20 sets, daily range): BP systolic 96–140; BP diastolic 47–113; PULSE 72–136; RESP 18–20; TEMP 36.6–36.9; O2SAT 90–96
--- NOTE | 2025-01-27 | ECHO_ITS ---
Patient Info Name: Jennifer Coyle Age: 74 years : 1950 Gender: Female Ht: 62 in Wt: 295 lbs BSA: 2.51 m2 HR: 107 bpm BP: 96 / 70 mmHg Heart Rhythm: Atrial Flutter Technical Quality: Poor Exam Date: 01/27/2025 10:56 AM Patient Status: O Admit Date: 01/26/2025 Exam Type: CA echo dop color flow w con Complete two-dimensional, color flow and Doppler transthoracic echocardiogram is performed with contrast to opacify the left ventricle and to improve the deliniation of the left ventricle endocardial borders. Staff Referring Physician: Laquita Mclean NP Drier Transfer Car Operator: Morris Betancourt III Attending Provider: Ondina Victor Contrast/Agitated Saline Contrast/Ag. Saline: Definity Amount: 2.00 ml Administered By: Morris Betancourt III Existing IV Access: Yes IV Access Condition: patent with no signs of infiltration Reason for Poor Study: poor echocardiographic windows Summary 1. Patient unable to lay on L side. 2. Left ventricular chamber dimension is mildly enlarged. 3. Left ventricular systolic function is severely reduced, estimated at 25-30. 4. There is mildly increased left ventricular wall thickness. 5. The left ventricular diastolic function is abnormal. 6. Left atrial chamber dimension is moderately enlarged. 7. Right atrial chamber dimension is mildly enlarged. 8. There is moderate aortic valve stenosis with a peak velocity of 261 cm/s, mean gradient of 16 mmHg, and aortic valve area of 1.3 cm2. 9. There is mild aortic valve regurgitation. 10. There is moderate aortic valve calcification. 11. There is mild to moderate mitral valve regurgitation. 12. The mitral valve annulus is severely calcified. 13. There is mild tricuspid valve regurgitation. 14. Moderate pulmonary hypertension, estimated pulmonary arterial systolic pressure is 47 mmHg. Left Ventricle Left ventricular chamber dimension is mildly enlarged. Left ventricular systolic function is severely reduced, estimated at 25-30. There is mildly increased left ventricular wall thickness. The left ventricular diastolic function is abnormal. Right Ventricle Right ventricular chamber dimension is normal. Right ventricular systolic function is normal. Left Atria Left atrial chamber dimension is moderately enlarged. Right Atria Right atrial chamber dimension is mildly enlarged. Atrial Septum Intact interatrial septum visualized by color flow imaging. Aortic Valve The aortic valve is trileaflet. There is moderate aortic valve stenosis with a peak velocity of 261 cm/s, mean gradient of 16 mmHg, and aortic valve area of 1.3 cm2. There is mild aortic valve regurgitation. There is moderate aortic valve calcification. Pulmonic Valve The pulmonic valve is normal. There is no pulmonic valve stenosis. There is trace pulmonic regurgitation. Mitral Valve There is no mitral valve stenosis. There is mild to moderate mitral valve regurgitation. The mitral valve annulus is severely calcified. Tricuspid Valve The tricuspid valve leaflets are normal. There is no significant tricuspid valve stenosis. There is mild tricuspid valve regurgitation. Moderate pulmonary hypertension, estimated pulmonary arterial systolic pressure is 47 mmHg. Pericardium/Pleural The pericardium appears normal. There is no pericardial effusion. Inferior Vena Cava Normal inferior vena cava with >50% collapse upon inspiration consistent with normal right atrial pressure, 10 mmHg. Aorta The aortic root size at the sinus of Valsalva is normal. There is mild aortic atherosclerosis. Left Ventricular Outflow Tract Name Value Normal LVOT 2D LVOT Diameter 2.0 cm LVOT Doppler LVOT Peak Velocity 111 cm/s LVOT Peak Gradient 5 mmHg LVOT Mean Gradient 2 mmHg LVOT VTI 19 cm LVOT VTI/AV VTI Ratio 0.4 LVOT Stroke Volume 60 ml LVOT CO 4.5 l/min LVOT CI 1.8 l/min/m2 Pulmonic Valve Name Value Normal PV Doppler PV Peak Velocity 137 cm/s PV Peak Gradient 8 mmHg PV Mean Gradient 4 mmHg Mitral Valve Name Value Normal MV Doppler MV Peak Gradient 11 mmHg MV Mean Gradient 6 mmHg MV Area (Cont Eq VTI) 2.3 cm2 MV Diastolic Function MV E Peak Velocity 166 cm/s MV A Peak Velocity 1 cm/s MV E/A 210.0 MV Decel Time (PW) 207 ms MV Annular TDI MV E/e' (Septal) 25.4 MV E/e' (Lateral) 23.5 MV E/e' (Average) 24.5 Tricuspid Valve Name Value Normal TV Regurgitation Doppler TR Peak Velocity 306 cm/s TR Peak Gradient 35 mmHg Estimated PAP/RSVP RA Pressure 10 mmHg <=5 PA Systolic Pressure 47 mmHg <36 RV Systolic Pressure 47 mmHg <36 TV Annular TDI TV Lateral Shirley s' Velocity 9.1 cm/s >=9.5 Aortic Valve Name Value Normal AV Doppler AV Peak Velocity 261 cm/s AV Peak Gradient 27 mmHg AV Mean Gradient 16 mmHg AV VTI 47 cm AV Area (Cont Eq VTI) 1.3 cm2 >=3.0 AV Area (Cont Eq Victor Hugo) 1.3 cm2 AV DI (Victor Hugo) 0.42 AV Regurgitation 2D LVOT Area 3.1 cm2 Ventricles Name Value Normal LV Dimensions 2D/MM IVS Diastolic Thickness (2D) 1.3 cm 0.6-1.0 LVID Diastole (2D) 4.6 cm 3.8-5.2 LVIW Diastolic Thickness (2D) 1.0 cm 0.6-0.9 LVID Systole (2D) 4.0 cm 2.2-3.5 LVOT Diameter 2.0 cm LV Mass (2D Cubed) 197.45 g 67.00-162.00 LV Mass Index (2D Cubed) 79 g/m2 43-95 Relative Wall Thickness (2D) 0.44 <=0.42 LV Fractional Shortening/Ejection Fraction 2D/MM LV Fractional Shortening (2D) 13 % 27-45 LV EF (2D Teichholz) 27 % LV Diastolic Volume (4C MOD) 91 ml LV EF (4C MOD) 20 % LV Diastolic Volume (2C MOD) 93 ml LV EF (2C MOD) 11 % LV Diastolic Volume (BP MOD) 98 ml 46-106 LV Diastolic Volume Index (BP MOD) 39 ml/m2 29-61 LV Systolic Volume (BP MOD) 78 ml 14-42 LV Systolic Volume Index (BP MOD) 31 ml/m2 8-24 LV EF (BP MOD) 21 % 54-74 LV Diastolic Length (4C) 7.8 cm LV Systolic Length (4C) 6.8 cm LV Stroke Volume (4C MOD) 18 ml Atria Name Value Normal LA Dimensions LA Volume (4C A-L) 75 ml LA Volume (BP A-L) 79 ml Report Signatures
[2025-01-27 00:32] LABS: Troponin I < 0.012 ng/mL (0.000-0.034)
--- OUTSIDE RECORDS SUMMARY | 2025-01-27 01:24 | XMS_ITS | Clinical Summary ---
Author Organization [facility] Address [address] [place] [address] Care Team Providers Care Liner Installer Name Role Phone Unknown, Notinfile Primary Care Provider Unavail able Laquita Miller DRAPERY EXAMINER Unavailable [phone] Allergies Active Allergy Reactions Criticality Noted Date Comments Codeine Other (See comments) Low Reaction: Medications acetaminophen (TYLENOL) 500 mg tabletIndicatio ns:Pain Take 500 mg by mouth every 4 (four) hours as needed for pain. Active metFORMIN XR (GLUCOPHAGE XR) 500 mg 24 hr tabletIndicatio ns:type 2 diabetes mellitus Take 500 mg by mouth daily with breakfast. Active amLODIPine (NORVASC) 2.5 mg tabletIndicatio ns:hypertension Take 2.5 mg by mouth daily. Active carbidopa-levod opa (SINEMET) 25-100 mg per tabletIndicatio ns:Parkinsonism Take 1.5 tablets by mouth 4 (four) times a day. Active atorvastatin (LIPITOR) 40 mg tabletIndicatio ns:hyperlipidem ia Take 40 mg by mouth daily. Active SITagliptin (JANUVIA) 100 mg tabletIndicatio ns:type 2 diabetes mellitus Take 100 mg by mouth daily. Active fesoterodine (TOVIAZ) 8 mg tablet extended release 24 hrIndications:U rinary Urgency Take 8 mg by mouth daily. Active gabapentin (NEURONTIN) 300 mg capsuleIndicati ons:Essential Tremor Take 300 mg by mouth 3 (three) times a day. Active levothyroxine (SYNTHROID, LEVOTHROID) 50 mcg tabletIndicatio ns:hypothyroidi sm Take 50 mcg by mouth daily. Active traZODone (DESYREL) 50 mg tabletIndicatio ns:insomnia associated with depression Take 50 mg by mouth nightly as needed for sleep. 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 Take 1 capsule (75 mg total) by mouth 2 (two) times a day 60 capsule 5 5 06/15/19 26 Active senna (SENOKOT) 8.6 mg tablet Take 1 tablet by mouth 2 (two) times a day 60 tablet 3 5 Active morphine ER (MS CONTIN) 15 mg 12 hr tablet Take 1 tablet (15 mg total) by mouth 2 (two) times a day 60 tablet 5 02/14/20 25 Active morphine ER (MS CONTIN) 15 mg 12 hr tablet Take 1 tablet (15 mg total) by mouth 2 (two) times a day 60 tablet 5 01/15/20 25 Discontinue d(Reorder) oxyCODONE (ROXICODONE) 5 mg immediate release tabletIndicatio ns:Pain Take 1 tablet (5 mg total) by mouth every 8 (eight) hours as needed for pain 90 tablet 5 01/18/20 25 Active Problems Problem Noted Date Diagnosed Date Acute midline low back pain with left-sided scia ranjeet 09/29/2024 Degenerative lumbar spinal stenosis 09/29/2024 Meningioma 07/05/2017 Encounters Date Type Department Care Team Description 01/14/2025 Orders Only [facility] [address] [place] [address] Laquita Miller NP 12/29/2024 [facility] [address] [place] [address] Laquita Miller NP 12/18/2024 Orders Only [facility] Palliative Care [address] [place] [address] Laquita Miller NP 12/11/2024 5:00 PM CDT Residential Visit [facility] Pall[facility] [address] [place] [address] Laquita Miller NP from Last 3 Months Family History Medical History Relation Name Comments Stroke Father Cancer Maternal Grandmother Relation Name Status Comments Father Maternal Grandmother Social History Tobacco Use Types Packs/Day Years Used Date Smoking Tobacco: Never Smokeless Tobacco: Never Alcohol Use Standard Drinks/Week Comments Defer 0 (1 standard drink = 0.6 oz pur e alcohol) Personal Safety Answer Date Recorded Have you ever been in or are you currently in a harmful physical or emotional relationship or is someone making you feel afraid or unsafe? Denies 09/29/2024 Comments Unknown Sex and Gender Information Value Date Recorded Sex Assigned at Not on file Legal Sex Female 9:22 AM [employer]FT HEAD[employer] Gender Identity Not on file Sexual Orientation Not on file Last Filed Vital Signs Vital Sign Reading Time Taken Comments Blood Pressure 151/74 09/29/2024 6:57 PM CDT Pulse 80 09/29/2024 6:57 PM CDT Temperature 37.1 C (98.7 F) 09/29/2024 12:09 PM CDT Respiratory Rate 20 09/29/2024 6:57 PM CDT Oxygen Saturation 98% 09/29/2024 6:57 PM CDT Inhaled Oxygen Concentration - - Weight 124.7 kg (275 lb) 09/29/2024 12:09 PM CDT Height 157.5 cm (5' 2) 09/29/2024 12:09 PM CDT Body Mass Index 50.3 09/29/2024 12:09 PM CDT Plan of Treatment Health Maintenance Due Date Last Done Comments Colon Cancer Screening-Colonoscopy 1950 Depression Screening 1950 Fall Risk Assessment 1950 Hepatitis C Screening 1950 Osteoporosis Screening-Bone Density Scan 1950 DTaP/Tdap/Td Vaccine (1 - Tdap) 1960 Hepatitis B Screening 08/17/1967 Pneumococcal vaccine 65+ (1 of 1 - PCV) 08/17/1999 Zoster Vaccine (2 of 3) 02/28/2012 01/03/2012, 12/10 Well Visit 65+ 2014 Covid-19 Vaccine (5 - 2024-2 6 season) 2024 12/13/2021, 01/05/2021, 05/14/2020, Additional history exists Influenza Vaccine (#1) 2024 , 12/17/2019, 11/18/2018, Additional history exists [facility] Address: [place] [id number] [facility] [address] [facility] Address: [address] [address] [place] [address] [place] [address] [facility] ADVANTAGE [facility] Address: [address] [address] [place] [address] [place] [address] Care Teams Liner Installer Relationship Specialty Start Date End Date Unknown, Notinfile PCP - General 09/29/24 Laquita Miller NP [address] [facility] [address] [place] [address] Nurse Practitioner Hospice and Palliative Medicine 12/10/24
--- OUTSIDE RECORDS SUMMARY | 2025-01-27 01:25 | XMS_ITS | Patient Health Record ---
Author Organization [facility] [address] Address [address] [place] [address] Care Team Providers Care Information Systems Analyst Name Role Phone Chriss Lancaster Unavailable [phone] Reason For Referral No Information Medications Medication SIG (Take, Route, Frequency, Duration) Notes Start Date End Date Status Januvia 100 MG Tablet Oral Active ALPRAZolam 0.5 MG Tablet Oral Active traZODone HCl 50 MG Tablet Oral Active Aqzscklxt-Trszvtud-Cjfjuigb ne 25-100-200 mg Tablet Oral Acti ve Omeprazole 40 MG Capsule Delayed Release Oral Active Valsartan 160 MG Tablet Oral Active metFORMIN HCl 1000 MG Tablet Oral Active buPROPion HCl ER (XL) 150 MG Tablet Extended Release 24 Hour Oral Active oxyBUTYnin Chloride ER 15 MG Tablet Extended Release 24 Hour Oral Active Atorvastatin Calcium 40 MG Tablet Oral Active Rozerem 8 MG Tablet Oral Active DULoxetine HCl 60 MG Capsule Delayed Release Particles Oral Active Gabapentin 300 MG Capsule Oral Active Plan Of Treatment No Information
[2025-01-27] MEDS: MORPHINE SULFATE (*CRX) 15 MG TABCR PO ×3 (02:20→20:47)
[2025-01-27 02:49] LABS: Troponin I < 0.012 ng/mL (0.000-0.034)
--- NOTE | 2025-01-27 03:03 | PM.IMHP ---
H&P: HPI History of Present Illness Date/Time: 01/27/25 03:03 Chief Complaint: Altered mental status. Narrative: This is a 74-year-old female patient who is from [facility]. According to the staff the patient has had some confusion on and off for the last 4 days. The family also noticed that the patient was retaining fluid in her legs. She has been taking Lasix p.r.n. at the [facility]. The patient stated that she had not been taking her Lasix as often as she should because it makes her urinate so frequently. The patient was recently diagnosed with the urinary tract infection but was not started on any antibiotics as of yet. The patient had a history of meningioma with surgical intervention. The family was concerned that she may have a brain tumor. The patient is noted to have multiple medications such as pain medication and muscle relaxers. EKG was read as atrial fibrillation with a heart rate in the 90s. The patient was started on subcu Lovenox and given Lasix IV push. Chest x-ray was read as cardiomegaly with atherosclerotic aorta. Small to moderate right pleural effusion minimal blunting in left costophrenic angle. Venous Dopplers were performed no evidence of DVT noted in both lower extremities. Head CT no large acute ischemic event mass effect or hemorrhage. Postsurgical findings were chronic. Moderate-sized area of encephalomalacia in the left frontal region. Troponins were negative x3. BNP 1710. Urine shows 1+ protein, urine ketones trace. The patient is being admitted to observation status on the date of service of 01/27/2025. Review of Systems Constitutional: Constitutional: Reports as per HPI and Reports no additional constitutional complaints Eyes: Eyes: Reports as per HPI and Reports no additional eye complaints ENT: Reports system reviewed and no additional complaints, except as documented and Reports Normal hearing present Cardiovascular: Cardiovascular: Reports no additional cardiovascular complaints Respiratory: Respiratory: Reports as per HPI and Reports no additional respiratory complaints Gastrointestinal: Gastrointestinal: Reports as per HPI and Reports no additional gastrointestinal complaints Genitourinary: Genitourinary: Reports no additional female genitourinary complaints Musculoskeletal: Musculoskeletal: Reports no additional musculoskeletal complaints Integumentary/Breasts: Skin/Breast: Reports system reviewed and no additional complaints, except as docu Neurologic: Reports system reviewed and no additional complaints, except as documented and Reports Normal hearing present Psychiatric: Psychiatric: Reports no additional psychiatric complaints and Reports as per HPI Hematologic/Lymphatic: Hematologic/Lymphatic: Reports no additional hematologic/lymphatic complaints Allergic/Immunologic: Allergic/Immunologic: Reports no additional allergic/immunologic complaints [facility] Past Medical History Medical History (Updated 01/27/25 @ 03:47 by Laquita Mclean APRN) DM2 (diabetes mellitus, type 2) Chronic back pain Hypothyroidism Peripheral neuropathy Osteoarthritis Parkinsons Meningioma Hyperlipidemia Hypertension Depression Anxiety Neuropathy Diabetes Surgical History Surgical History (Updated 01/27/25 @ 03:19 by Laquita Mclean APRN) H/O cataract extraction H/O: hysterectomy History of tonsillectomy H/O brain surgery Family History Family History Father Cerebrovascular accident Family history of coronary artery disease Social History Social History (Updated 01/27/25 @ 03:21 by Laquita Mclean APRN) Social History: She currently resides at [facility]. She stated she has a son and daughter. She is retired. She is . Code status: According to her living will she is a full code but also mentions comfort measures? However the patient stated she wants to be a full code. Smoking packs per day: 0.5 Smoking cigarettes per day: 10.0 Years smoked: 38 Smoking pack-years: 19.00 Smoking status: Current every day smoker Tobacco type: cigarettes Alcohol intake: never Substance use: never Substance use type: does not use Lack of Transportation: No Lack of Food: Never True Current Housing: I Have Housing Concerned About Future Housing: No Difficulty Paying Gas/Electric Bills: No Difficulty Paying for Meds: No Currently Unemployed: No Education: High School Diploma/GED Difficulty w/ Childcare or Family Care: No Living arrangements: assisted living Spiritual care concerns: No Meds Home Medications and Allergies Home Medications ?Medication ?Instructions ?Recorded ?Confirmed ?Type acetaminophen 650 mg 1,300 mg PO Q8-10H PRN pain (scale 01/13/22 01/27/25 History tablet,extended release score 4-6) alprazolam 0.5 mg tablet,extended 0.5 mg PO DAILY 01/13/22 01/27/25 History release 24 hr amlodipine 2.5 mg tablet 2.5 mg PO DAILY 01/13/22 01/27/25 History atorvastatin 40 mg tablet 40 mg PO DAILY 01/13/22 01/27/25 History cyanocobalamin (vitamin B-12) 1,000 mcg PO DAILY 01/13/22 01/27/25 History 1,000 mcg tablet diclofenac sodium 1 % topical gel 2 g topical QID 01/13/22 01/27/25 History docusate sodium 100 mg tablet 100 mg PO DAILY 01/13/22 01/27/25 History ergocalciferol (vitamin D2) 1,250 50,000 unit PO WEEKLY 01/13/22 01/27/25 History mcg (50,000 unit) capsule (Vitamin D2) furosemide 40 mg tablet 40 mg PO PRN PRN Edema 01/13/22 01/27/25 History ibuprofen 800 mg tablet 800 mg PO TID PRN pain (scale 01/13/22 01/27/25 History score 1-3) insulin glargine 100 unit/mL (3 68 unit subcut DAILY 01/13/22 01/27/25 History mL) subcutaneous pen (Lantus Solostar U-100 Insulin) losartan 25 mg tablet 25 mg PO DAILY 01/13/22 01/27/25 History magnesium oxide 400 mg (241.3 mg 400 mg PO BID 01/13/22 01/27/25 History magnesium) tablet melatonin 5 mg tablet 10 mg PO HS 01/13/22 01/27/25 History mirabegron 50 mg tablet,extended 50 mg PO DAILY 01/13/22 01/27/25 History release 24 hr (Myrbetriq) quetiapine 25 mg tablet 25 mg PO HS 01/13/22 01/27/25 History triamcinolone acetonide 0.1 % 1 applic topical PRN PRN Itching 01/13/22 01/27/25 History topical cream bisacodyl 5 mg tablet 10 mg PO HS 01/27/25 01/27/25 History camphor-menthol 0.2 %-3.5 % 1 applic topical BID 01/27/25 01/27/25 History topical gel (Arctic Relief) morphine 15 mg tablet,extended 15 mg PO Q12H 01/27/25 01/27/25 History release ondansetron 4 mg disintegrating 4 mg PO Q8H PRN nausea and vomiting 01/27/25 01/27/25 History tablet oxycodone 5 mg tablet 5 mg PO Q6H PRN pain (scale score 01/27/25 01/27/25 History 7-10) pregabalin 50 mg capsule 75 mg PO BID 01/27/25 01/27/25 History sennosides 8.6 mg tablet 8.6 mg PO BID 01/27/25 01/27/25 History (Black-Draught Lax-Senna) tirzepatide 12.5 mg/0.5 mL 12.5 mg subcut WEEKLY 01/27/25 01/27/25 History subcutaneous pen injector (Stanislaw) tizanidine 2 mg tablet 2 mg PO Q8H PRN muscle spasticity 01/27/25 01/27/25 History Allergies Allergy/AdvReac Type Severity Reaction Status Date / Time codeine Allergy Unknown Nausea and Verified 01/26/25 23:53 Vomiting Vital Signs Vital Signs - 24 hr 01/26/25 13:59 01/26/25 17:09 01/26/25 19:01 Temperature 97.7 F Pulse Rate 80 93 110 H Respiratory Rate 19 18 Blood Pressure 122/94 H 128/91 H Pulse Oximetry 94 93 Oxygen Delivery Room Air 01/26/25 19:01 01/26/25 19:25 01/26/25 19:32 Temperature 98.2 F Pulse Rate 103 H 86 Respiratory Rate 12 10 L Blood Pressure 116/82 142/72 H Pulse Oximetry 93 91 Oxygen Delivery 01/26/25 19:47 01/26/25 20:02 01/26/25 20:17 Temperature Pulse Rate 102 H 91 116 H Respiratory Rate 10 L 12 12 Blood Pressure 137/102 H 128/85 127/80 Pulse Oximetry 90 93 93 Oxygen Delivery 01/26/25 21:17 01/26/25 21:31 01/26/25 23:30 Temperature Pulse Rate 90 113 H 106 H Respiratory Rate 11 L 11 L 18 Blood Pressure 98/65 L 119/81 123/86 Pulse Oximetry 100 Oxygen Delivery 01/26/25 23:44 01/27/25 00:00 01/27/25 00:00 Temperature 98.3 F Pulse Rate 110 H 136 H 112 H Respiratory Rate 18 18 Blood Pressure 120/72 108/68 Pulse Oximetry 100 90 Oxygen Delivery 01/27/25 02:00 Temperature Pulse Rate 112 H Respiratory Rate Blood Pressure Pulse Oximetry Oxygen Delivery Exam Const: General: cooperative, healthy appearing, comfortable, no acute distress, well developed, awake, Physically active, average body habitus and well nourished Nutritional Appearance: average body habitus and well nourished Orientation/consciousness: oriented to person, oriented to place, oriented to time and patient oriented x3 Limitations: no limitations HENMT: Head: normal to inspection, No palpable skull fracture present, normocephalic, atraumatic and abrasion Ears: hearing grossly normal bilaterally Eyes: General: appearance normal, both eyes and all related structures Alignment and Position: alignment normal Periorbital: periorbital findings normal Eyelids: eyelids normal EOM: EOMs intact bilaterally Neck: Neck: normal visual inspection, full ROM and trachea midline Lymphatic: no lymphadenopathy noted Chest: Chest palpation & inspection: normal inspection of the chest Resp: Effort & Inspection: normal respiratory effort Auscultation: clear to auscultation bilaterally Cardio: Palpation: normal PMI Rate: regular rate Rhythm: abnormal rhythm irregularly irregular Heart sounds: S1 normal heart sound present and S2 normal heart sound present Peripheral pulses: Peripheral pulses 2+ throughout Other: AFib GI: Inspection: distended, Pannus present and obesity GI Palp: Yes abdominal tenderness and Yes Palpable mass present Auscultation: normal bowel sounds Rectal Exam: deferred Skin: General skin exam: normal color Lesions: no lesions Rashes: no rashes Trauma: no lacerations or abrasions Wounds: no wounds Hair: normal Nails: normal Neuro: General: oriented to person, oriented to place and patient oriented x3 Cranial nerves: Yes Normal hearing present Cognition (Neuro): normal cognition Speech: normal speech Sensory Exam: normal sensation Other: A central tremors to bilateral hand is with movement Extrem: General: normal to inspection Right upper extremity: normal to inspection and shoulder/upper arm Left upper extremity: normal to inspection and shoulder/upper arm Right lower extremity: normal to inspection Left lower extremity: normal to inspection Other: 2+ nonpitting edema 2 pedal area Psych: Appearance: grossly normal Mental Status: mental status grossly normal Speech and movement: Normal speech and movement present Affect: normal affect Attitude: cooperative Thought process: Normal thought process present Thought content: Yes Normal thought content present H&P: Results Labs Labs: Short CBC 01/26/25 Range/Units 15:53 WBC 9.2 (4.5-10.0) K/mm3 Hgb 14.1 (12.0-15.0) g/dL Hct 45.8 (37.0-47.0) % Plt Count 364 (150-375) k/mm3 BMP 01/26/25 15:53 Sodium 140 Potassium 4.1 Chloride 101 Carbon Dioxide 33 H BUN 14 D Creatinine 0.76 Glucose 68 Calcium 9.7 Cardiac Enzymes 01/26/25 01/26/25 01/27/25 Range/Units 15:53 23:51 02:20 Troponin I 0.012 < 0.012 < 0.012 (0.000-0.034) ng/mL Liver Function 01/26/25 Range/Units 15:53 Total Bilirubin 0.6 (0.2-1.3) mg/dL AST 28 (14-36) U/L ALT 14 (6-35) U/L Alkaline Phosphatase 128 H (38-126) U/L Albumin 4.2 (3.5-5.1) g/dL Urine 01/26/25 Range/Units 18:51 Urine Color Dark yellow (Yellow) Urine Appearance Clear (Clear) Urine pH 5.5 (5.0-9.0) Ur Specific [place] 1.030 (1.001-1.035) Urine Protein 1+ H (Negative) mg/dL Urine Glucose (UA) Negative (Negative) mg/dL ECG Interpretation: Test Date: 2025-01-26 15:51:54 Measurements Intervals [place] Rate: 90 P: 0 HI: 0 QRS: -47 QRSD: 152 T: 73 QT: 407 QTc: 499 Interpretive Statements ATRIAL FIBRILLATION INTRAVENTRICULAR CONDUCTION DELAY Electronically Signed On 01-26-2025 20:03:32 BAKER TEST by Gaudencio Rubio D.O Imaging CT scan - head: Radiologist's impression: ITS Impressions Head CT 01/26/25 14:44 IMPRESSION: 1. No large acute ischemic event, mass effect or hemorrhage. 2. Chronic findings as above. Venous Doppler Study 01/26/25 15:11 IMPRESSION: 1. No evidence of DVT noted in both lower extremities. 2. If clinical suspicion of DVT persists repeat study is recommended after one week for reevaluation to rule out extension of thrombus from the calf. Chest X-Ray 01/26/25 15:22 IMPRESSION: 1. Cardiomegaly with atherosclerotic aorta. 2. [id number] right pleural effusion. Minimal blunting of left costophrenic angle. Assessment and Plan Assessment and plan (1) Atrial fibrillation: Code(s): I48.91 - Unspecified atrial fibrillation Status: Acute Assessment and Plan: -new onset of AFib. The rate is lower 100s. -an echo has been ordered. -the patient has been started on subcu Lovenox. -cardiology has been consulted. -consider transitioning to Xarelto or Eliquis. Hair Vasc score is 5. -the patient denies any chest pain or palpitations. -may consider Coreg. However blood pressure is only 108/68 at this point. May also consider amiodarone. -thyroid level and electrolytes are within normal limits. (2) Elevated brain natriuretic peptide (BNP) level: Code(s): R79.89 - Other specified abnormal findings of blood chemistry Status: Acute Assessment and Plan: -BnP is noted to be 1710 -the patient was supposed to be on Lasix approximate 3 times a week and stated she has not been taking it because it makes her urinate too much. -echo has been ordered. -Chest X-Ray 01/26/25 15:22 IMPRESSION: 1. Cardiomegaly with atherosclerotic aorta. 2. [id number] right pleural effusion. Minimal blunting of left costophrenic angle. -the patient is on pure wick to monitor her IN and O. -she has 2+ nonpitting edema to lower extremity. -as she was started on IV Lasix twice a day. -she is also on losartan. -she is on amlodipine which could cause her to have some water retention. (3) Hypertension: Code(s): I10 - Essential (primary) hypertension Status: Acute Assessment and Plan: -the patient is currently on Lasix. -she is on amlodipine at home. May need to hold amlodipine -continue with losartan. -current blood pressure 108/68. (4) Hyperlipidemia: Code(s): E78.5 - Hyperlipidemia, unspecified Status: Acute Assessment and Plan: -continue with atorvastatin (5) Hypothyroidism: Code(s): E03.9 - Hypothyroidism, unspecified Status: Acute Assessment and Plan: -check TSH with reflex. (6) Parkinsons: Code(s): G20.A1 - Parkinson's disease without dyskinesia, without mention of fluctuations Status: Acute Assessment and Plan: -the patient stated that she does have some hand tremors (7) Peripheral neuropathy: Code(s): G62.9 - Polyneuropathy, unspecified Status: Acute Assessment and Plan: -the patient is on multiple medications. However the staff and the family felt that the patient had been having some confusion over the last few days. I only restarted some of her medication. I continued with her routine MS Contin but held her p.r.n. morphine at this time. Also her blood pressure is on the soft side as well. -continue with Lyrica and she is also on Zanaflex. -the patient stated that she has chronic back pain and chronic sciatica. -the patient is on chronic narcotics and may need to be referred to pain management. (8) Edema, peripheral: Code(s): R60.0 - Localized edema Status: Acute Assessment and Plan: -venous Dopplers are negative. -echo is pending. (9) DM2 (diabetes mellitus, type 2): Code(s): E11.9 - Type 2 diabetes mellitus without complications Status: Acute Assessment and Plan: -Accu-Cheks AC and HS with sliding scale insulin. -check A1c if not performed in last 3 months. -pharmacy's communication to reduce home insulin dose by 20%. Quality VTE Prophylaxis VTE prophylaxis: pharmacologic ordered
[2025-01-27 03:58] LABS: Hematocrit 44.4 % (37.0-47.0); Hemoglobin 13.6 g/dL (12.0-15.0); Mean Corpuscular HGB Conc 30.6 g/dl (32-36); Mean Corpuscular Hemoglobin 30.0 pg (26-34); Mean Corpuscular Volume 98.0 fl (80-100); Platelet Count Result 376 k/mm3 (150-375); Red Blood Count 4.53 M/mm3 (4.2-5.4); White Blood Count 11.6 K/mm3 (4.5-10.0)
[2025-01-27 04:17] LABS: Hemoglobin A1C 6.3 % (<5.7)
[2025-01-27 04:41] LABS: Thyroid Stimulating Hormone Reflex 0.719 uIU/mL (0.465-4.68)
[2025-01-27 07:55] LABS: Anion Gap 4 mmol/L (4-12); Blood Urea Nitrogen 16 mg/dL (7-17); Calcium 9.2 mg/dL (8.4-10.2); Carbon Dioxide 34 mmol/L (22-30); Chloride 102 mmol/L (98-107); Estimated CRCL calculation 73 ml/min; Estimated Glomerular Filt Rate > 60; Glucose 128 mg/dL (65-110); Potassium 4.6 mmol/L (3.4-5.0); Sodium 140 mmol/L (137-145)
--- NOTE | 2025-01-27 08:45 | PM.IMPN ---
Progress Note: A&P Assessment and Plan (1) Atrial fibrillation: Code(s): I48.91 - Unspecified atrial fibrillation Status: Acute Assessment and Plan: -new onset of AFib. The rate is lower 100s. -an echo has been ordered. -the patient has been started on subcu Lovenox. -normal TSH -cardiology has been consulted. -consider transitioning to Xarelto or Eliquis. -the patient denies any chest pain or palpitations. -may consider Coreg. However blood pressure is only 108/68 at this point. (2) Elevated brain natriuretic peptide (BNP) level: Code(s): R79.89 - Other specified abnormal findings of blood chemistry Status: Acute Assessment and Plan: -BnP is noted to be 1710 -the patient was supposed to be on Lasix approximate 3 times a week and stated she has not been taking it because it makes her urinate too much. -echo has been ordered. -Chest X-Ray 01/26/25 15:22 IMPRESSION: 1. Cardiomegaly with atherosclerotic aorta. 2. Ikrqq-[id number] right pleural effusion. Minimal blunting of left costophrenic angle. -the patient is on pure wick to monitor her IN and O. -she has 2+ nonpitting edema to lower extremity. -as she was started on IV Lasix twice a day. -she is also on losartan. -she is on amlodipine which could cause her to have some water retention. (3) Hypertension: Code(s): I10 - Essential (primary) hypertension Status: Acute Assessment and Plan: -the patient is currently on Lasix. -she is on amlodipine at home. -continue with losartan. -current blood pressure 108/68. (4) Hyperlipidemia: Code(s): E78.5 - Hyperlipidemia, unspecified Status: Acute Assessment and Plan: -continue with atorvastatin (5) Hypothyroidism: Code(s): E03.9 - Hypothyroidism, unspecified Status: Acute Assessment and Plan: -check TSH with reflex. (6) Parkinsons: Code(s): G20.A1 - Parkinson's disease without dyskinesia, without mention of fluctuations Status: Acute Assessment and Plan: -the patient stated that she does have some hand tremors (7) Peripheral neuropathy: Code(s): G62.9 - Polyneuropathy, unspecified Status: Acute Assessment and Plan: -the patient is on multiple medications. However the staff and the family felt that the patient had been having some confusion over the last few days. I only restarted some of her medication. I continued with her routine MS Contin but held her p.r.n. morphine at this time. Also her blood pressure is on the soft side as well. -continue with Lyrica and she is also on Zanaflex. -the patient stated that she has chronic back pain and chronic sciatica. -the patient is on chronic narcotics and may need to be referred to pain management. (8) Edema, peripheral: Code(s): R60.0 - Localized edema Status: Acute Assessment and Plan: -venous Dopplers are negative. -echo is pending. (9) DM2 (diabetes mellitus, type 2): Code(s): E11.9 - Type 2 diabetes mellitus without complications Status: Acute Assessment and Plan: -Accu-Cheks AC and HS with sliding scale insulin. -check A1c if not performed in last 3 months. -pharmacy's communication to reduce home insulin dose by 20%. Subjective Date/time seen: 01/27/25 08:45 Interval history: Patient daughter was present during the evaluation. Patient was admitted due to new onset of AFib. As per daughter patient of was living in the [place]. Patient is noncompliant with medications and medical follow-up. Also she reports platelets been difficult to manage the patient due to her personality. 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 Review of Systems Constitutional: Constitutional: Reports as per HPI and Reports no additional constitutional complaints Eyes: Eyes: Reports as per HPI and Reports no additional eye complaints ENT: Reports system reviewed and no additional complaints, except as documented and Reports Normal hearing present Cardiovascular: Cardiovascular: Reports no additional cardiovascular complaints Respiratory: Respiratory: Reports as per HPI and Reports no additional respiratory complaints Gastrointestinal: Gastrointestinal: Reports as per HPI and Reports no additional gastrointestinal complaints Genitourinary: Genitourinary: Reports no additional female genitourinary complaints Musculoskeletal: Musculoskeletal: Reports no additional musculoskeletal complaints Integumentary/Breasts: Skin/Breast: Reports system reviewed and no additional complaints, except as docu Neurologic: Reports system reviewed and no additional complaints, except as documented and Reports Normal hearing present Psychiatric: Psychiatric: Reports no additional psychiatric complaints and Reports as per HPI Hematologic/Lymphatic: Hematologic/Lymphatic: Reports no additional hematologic/lymphatic complaints Allergic/Immunologic: Allergic/Immunologic: Reports no additional allergic/immunologic complaints Exam Const: General: cooperative, healthy appearing, comfortable, no acute distress, well developed, awake, Physically active, average body habitus and well nourished Nutritional Appearance: average body habitus and well nourished Orientation/consciousness: oriented to person, oriented to place, oriented to time and patient oriented x3 Limitations: no limitations HENMT: Head: normal to inspection, No palpable skull fracture present, normocephalic, atraumatic and abrasion Ears: hearing grossly normal bilaterally Eyes: General: appearance normal, both eyes and all related structures Alignment and Position: alignment normal Periorbital: periorbital findings normal Eyelids: eyelids normal EOM: EOMs intact bilaterally Neck: Neck: normal visual inspection, full ROM and trachea midline Lymphatic: no lymphadenopathy noted Chest: Chest palpation & inspection: normal inspection of the chest Resp: Effort & Inspection: normal respiratory effort Auscultation: clear to auscultation bilaterally Cardio: Palpation: normal PMI Rate: regular rate Rhythm: abnormal rhythm irregularly irregular Heart sounds: S1 normal heart sound present and S2 normal heart sound present Peripheral pulses: Peripheral pulses 2+ throughout Other: AFib GI: Inspection: distended, Pannus present and obesity Auscultation: normal bowel sounds Rectal Exam: deferred Skin: General skin exam: normal color Lesions: no lesions Rashes: no rashes Trauma: no lacerations or abrasions Wounds: no wounds Hair: normal Nails: normal Neuro: General: oriented to person, oriented to place, oriented to time and patient oriented x3 Cranial nerves: Yes Normal hearing present Cognition (Neuro): normal cognition Speech: normal speech Sensory Exam: normal sensation Other: A central tremors to bilateral hand is with movement Extrem: General: normal to inspection Right upper extremity: normal to inspection and shoulder/upper arm Left upper extremity: normal to inspection and shoulder/upper arm Right lower extremity: normal to inspection Left lower extremity: normal to inspection Other: 2+ nonpitting edema 2 pedal area Psych: Appearance: grossly normal Mental Status: mental status grossly normal Speech and movement: Normal speech and movement present Affect: normal affect Attitude: cooperative Thought process: Normal thought process present Objective Data Vital Signs Vital Signs: Vital Signs - 24 hr 01/26/25 13:59 01/26/25 17:09 01/26/25 19:01 Temperature 97.7 F Pulse Rate 80 93 110 H Respiratory Rate 19 18 Blood Pressure 122/94 H 128/91 H Pulse Oximetry 94 93 Oxygen Delivery Room Air 01/26/25 19:01 01/26/25 19:25 01/26/25 19:32 Temperature 98.2 F Pulse Rate 103 H 86 Respiratory Rate 12 10 L Blood Pressure 116/82 142/72 H Pulse Oximetry 93 91 Oxygen Delivery 01/26/25 19:47 01/26/25 20:02 01/26/25 20:17 Temperature Pulse Rate 102 H 91 116 H Respiratory Rate 10 L 12 12 Blood Pressure 137/102 H 128/85 127/80 Pulse Oximetry 90 93 93 Oxygen Delivery 01/26/25 21:17 01/26/25 21:31 01/26/25 23:30 Temperature Pulse Rate 90 113 H 106 H Respiratory Rate 11 L 11 L 18 Blood Pressure 98/65 L 119/81 123/86 Pulse Oximetry 100 Oxygen Delivery 01/26/25 23:44 01/27/25 00:00 01/27/25 00:00 Temperature 98.3 F Pulse Rate 110 H 136 H 112 H Respiratory Rate 18 18 Blood Pressure 120/72 108/68 Pulse Oximetry 100 90 Oxygen Delivery 01/27/25 02:00 01/27/25 04:00 01/27/25 04:00 Temperature 98 F Pulse Rate 112 H 121 H 107 H Respiratory Rate 18 18 Blood Pressure 96/70 L Pulse Oximetry 90 90 Oxygen Delivery Room Air 01/27/25 04:00 01/27/25 06:00 01/27/25 07:45 Temperature 98.3 F Pulse Rate 107 H 109 H 91 Respiratory Rate 20 Blood Pressure 100/47 L Pulse Oximetry 93 Oxygen Delivery Intake/Output Intake/Output: Intake & Output 01/24/25 01/25/25 01/26/25 01/27/25 23:59 23:59 23:59 23:59 Intake Total 120 Output Total 50 1500 Balance -50 1380 Meds/Results Medications: Active Medications Generic Name Dose Route Start Last Admin Trade Name Freq PRN Reason Stop Dose Admin Acetaminophen 650 mg 01/26/25 20:06 Acetaminophen 325 Mg Tablet PO Q4H PRN Mild Pain (1-3) or Fever Alprazolam 0.25 mg 01/27/25 09:00 Alprazolam (*Crx) 0.25 Mg Tablet BY MOUTH BID [facility] Amlodipine Besylate 2.5 mg 01/27/25 09:00 Amlodipine Besylate 2.5 Mg Tablet PO DAILY [facility] Atorvastatin Calcium 40 mg 01/27/25 09:00 Atorvastatin 40 Mg Tablet PO DAILY [facility] Bisacodyl 10 mg 01/27/25 21:00 Bisacodyl 5 Mg Tablet Ec PO HS [facility] Dextrose 12.5 gm 01/27/25 03:47 Dextrose 50% 25 Gm/50 Ml Syringe IV PUSH PRN PRN Hypoglycemia Protocol Diclofenac Sodium 1 applic 01/27/25 09:00 Diclofenac Sodium 1% 100 Gm Gel (*Bkc) TOPICAL QID [facility] Docusate Sodium 100 mg 01/27/25 09:00 Docusate Sodium 100 Mg Capsule PO DAILY [facility] Enoxaparin Sodium 100 mg 01/26/25 20:15 01/26/25 21:25 Enoxaparin 100 Mg/Ml Syringe SUB-Q 100 mg Q12HR JEY Administration Enoxaparin Sodium 30 mg 01/26/25 21:00 01/26/25 22:43 Enoxaparin 30 Mg/0.3 Ml Syringe SUB-Q 30 mg Q12HR JEY Administration Ergocalciferol 50,000 mcg 01/27/25 09:00 Ergocalciferol (Vitamin D2) 1,250 Mcg (50,000 Units) Capsule PO WEEKLY [facility] Furosemide 40 mg 01/26/25 21:00 01/26/25 21:25 Furosemide Inj 40 Mg/4 Ml Vial IV PUSH 40 mg Q12HR JEY Administration Glucagon 1 mg 01/27/25 03:47 Glucagon For Inj 1 Mg Vial IM PRN PRN Hypoglycemia Protocol Glucose 15 gm 01/27/25 03:47 Glucose Oral Gel 15 Gm Of Glucse In 37.5 Gm Tube PO PRN PRN Hypoglycemia Protocol Dextrose 1,000 mls @ 100 mls/hr 01/27/25 03:47 Dextrose 5% 1,000 Ml IVPB PRN PRN Hypoglycemia Protocol Insulin Aspart 2 - 5 units 01/27/25 08:00 Insulin Aspart (*Bkc) 100 Units/Ml SUB-Q TIDWM JEY Protocol Insulin Glargine 54 units 01/27/25 09:00 Insulin Glargine (*Bkc) 100 Units/Ml SUB-Q DAILY [facility] Losartan Potassium 25 mg 01/27/25 09:00 Losartan Potassium 25 Mg Tablet PO DAILY [facility] Magnesium Oxide 400 mg 01/27/25 09:00 Magnesium Oxide 400 Mg Tablet PO Q12HR [facility] Melatonin 10 mg 01/27/25 21:00 Melatonin 5 Mg Tablet PO HS [facility] Mirabegron 50 mg 01/27/25 09:00 Mirabegron 50 Mg Er Tablet PO DAILY [facility] Morphine Sulfate 15 mg 01/27/25 02:10 01/27/25 02:20 Morphine Sulfate (*Crx) 15 Mg Tabcr PO 15 mg Q12HR [facility] Administration Ondansetron HCl 4 mg 01/27/25 01:34 Ondansetron Hcl Odt 4 Mg Tablet PO Q8H PRN Nausea And Vomiting Perflutren Lipid Microsphere 0 ml 01/27/25 03:11 Perflutren Lipid Microspheres 1.5 Ml Vial Diluted To 10 Ml Total Volume IV PUSH 01/30/25 03:11 ONCE PRN adequate visualization Protocol Pregabalin 75 mg 01/27/25 09:00 Pregabalin (*Crx) 75 Mg Capsule PO BID [facility] Quetiapine Fumarate 25 mg 01/27/25 21:00 Quetiapine Fumarate 25 Mg Tablet PO HS [facility] Senna 8.6 mg 01/27/25 09:00 Sennosides 8.6 Mg Tablet PO Q12HR [facility] Tizanidine HCl 2 mg 01/27/25 01:34 Tizanidine Hcl 2 Mg Tablet PO Q8H PRN Muscle Spasticity Radiology Results: ITS Impressions Head CT 01/26/25 14:44 IMPRESSION: 1. No large acute ischemic event, mass effect or hemorrhage. 2. Chronic findings as above. Venous Doppler Study 01/26/25 15:11 IMPRESSION: 1. No evidence of DVT noted in both lower extremities. 2. If clinical suspicion of DVT persists repeat study is recommended after one week for reevaluation to rule out extension of thrombus from the calf. Chest X-Ray 01/26/25 15:22 IMPRESSION: 1. Cardiomegaly with atherosclerotic aorta. 2. [id number] right pleural effusion. Minimal blunting of left costophrenic angle. Abdomen/Pelvis CT 01/27/25 08:29 IMPRESSION: 1. No acute intra-abdominal/pelvic process. 2. 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 Recommend nonemergent urologic consultation. 3. Small bilateral pleural effusions with associated dependent atelectasis in both lower lobes, right greater than left. 4. Mild cardiomegaly. Labs Labs: Laboratory Results - last 24 hr 01/26/25 01/26/25 01/26/25 15:53 18:51 23:51 WBC 9.2 RBC 4.64 Hgb 14.1 Hct 45.8 MCV 98.7 MCH 30.4 MCHC 30.8 L RDW 14.1 Plt Count 364 MPV 9.8 Immature Gran % (Auto) 0.2 Neut % (Auto) 52.1 Lymph % (Auto) 36.5 [place] % (Auto) 8.4 Eos % (Auto) 2.1 Baso % (Auto) 0.7 Lymph # (Auto) 3.35 H [place] # (Auto) 0.8 H Eos # (Auto) 0.2 Baso # (Auto) 0.1 Abs Immat Gran (auto) 0.02 Absolute Neuts (auto) 4.8 Absolute Nucleated RBC 0.000 Nucleated RBC % 0.0 PT 13.3 INR 1.0 APTT 27.9 Sodium 140 Potassium 4.1 Chloride 101 Carbon Dioxide 33 H Anion Gap 6 BUN 14 D Creatinine 0.76 Estim Creat Clear Calc Not Reportable Estimated GFR > 60 Glucose 68 POC Capillary Glucose Hemoglobin A1c Calcium 9.7 Total Bilirubin 0.6 AST 28 ALT 14 Alkaline Phosphatase 128 H Troponin I 0.012 < 0.012 NT-Pro-B Natriuret Pep 1710 H Total Protein 7.4 Albumin 4.2 TSH (Reflex) Urine Color Dark yellow Urine Appearance Clear Urine pH 5.5 Ur Specific [place] 1.030 Urine Protein 1+ H Urine Glucose (UA) Negative Urine Ketones Trace H Ur Blood (Man) Negative Urine Nitrate Negative Urine Bilirubin Negative Urine Urobilinogen 1.0 Leukocyte Esterase Rfl Negative Urine RBC 0-2 Urine WBC 0-5 Ur Squamous Epith Cells None seen Urine Bacteria None seen Urine Casts 0-2 01/27/25 01/27/25 01/27/25 02:20 06:49 07:18 WBC 11.6 H RBC 4.53 Hgb 13.6 Hct 44.4 MCV 98.0 MCH 30.0 MCHC 30.6 L RDW 14.1 Plt Count 376 H MPV 10.4 Immature Gran % (Auto) Neut % (Auto) Lymph % (Auto) [place] % (Auto) Eos % (Auto) Baso % (Auto) Lymph # (Auto) [place] # (Auto) Eos # (Auto) Baso # (Auto) Abs Immat Gran (auto) Absolute Neuts (auto) Absolute Nucleated RBC Nucleated RBC % PT INR APTT Sodium 140 Potassium 4.6 Chloride 102 Carbon Dioxide 34 H Anion Gap 4 BUN 16 Creatinine 0.77 Estim Creat Clear Calc 73 Estimated GFR > 60 Glucose 128 H POC Capillary Glucose 131 H Hemoglobin A1c 6.3 H Calcium 9.2 Total Bilirubin AST ALT Alkaline Phosphatase Troponin I < 0.012 NT-Pro-B Natriuret Pep Total Protein Albumin TSH (Reflex) 0.719 Urine Color Urine Appearance Urine pH Ur Specific [place] Urine Protein Urine Glucose (UA) Urine Ketones Ur Blood (Man) Urine Nitrate Urine Bilirubin Urine Urobilinogen Leukocyte Esterase Rfl Urine RBC Urine WBC Ur Squamous Epith Cells Urine Bacteria Urine Casts Quality VTE Prophylaxis VTE prophylaxis: pharmacologic ordered Hospitalist MIPS Advance Care Plan I have confirmed that the patient's Advanced Care Plan is present, code status is documented, or surrogate decision maker is listed in patient medical record.: Yes Medication Reconciliation I have utilized all available resources to obtain, update and review the patients current medications (includes all prescriptions, OTC, herbals, cannabis, and nutritional supplements).: Yes
--- NOTE | 2025-01-27 09:18 | PM.CNCAR ---
Assessment and Plan Assessment and plan (1) Atrial fibrillation: Code(s): I48.91 - Unspecified atrial fibrillation Status: Acute Assessment and Plan: unclear if new onset or chronic (patient feels symptoms began a week ago) she has had episodes of RVR overnight with HR up to 140, currently in the 120s. will begin amiodarone for rate control and possible conversion to NSR as she is hypotensive and unable to tolerate rate lowering agents at this time she is currently on therapeutic lovenox for AC, but would change to Eliquis 5 mg BID as her CHADSVASC2 is 5 her TSH is wnl. Keep K>4 and Mag >2 monitor QT/QTC with amiodarone as she is on Serogquel (2) Elevated brain natriuretic peptide (BNP) level: Code(s): R79.89 - Other specified abnormal findings of blood chemistry Status: Acute Assessment and Plan: most likely acute CHF in setting of afib with RVR echo is pending to determine if systolic or diastolic dysfunction her pBNP was elevated at 1710 and CXR revealed pleural effusion agree with continued diuresis at this time, monitoring renal function with diuresis will hold her norvasc and losartan at this time to allow enough BP for diuresis (3) Hypertension: Code(s): I10 - Essential (primary) hypertension Status: Acute Assessment and Plan: Blood pressure has been soft will hold her losartan and norvasc at this time to allow BP for diuresis and rate controlling agents monitor BP and resume as tolerated/needed. (4) Hyperlipidemia: Code(s): E78.5 - Hyperlipidemia, unspecified Status: Acute Assessment and Plan: continue atorvastatin 40 mg daily (5) DM2 (diabetes mellitus, type 2): Code(s): E11.9 - Type 2 diabetes mellitus without complications Status: Acute Assessment and Plan: glycemic control as per primary team (6) Chronic back pain: Code(s): M54.9 - Dorsalgia, unspecified; G89.29 - Other chronic pain Status: Acute Assessment and Plan: pain management as per primary team (7) Edema, peripheral: Code(s): R60.0 - Localized edema Status: Acute Assessment and Plan: most likely secondary to acute volume overload will monitor with diuresis Plan echo pending begin IV amiodarone transition to Eliquis 5 mg BID continue diuresis as her BP allows History of Present Illness History of Present Illness Consult date/time: 01/27/25 09:18 Requesting physician: Laquita Mclean APRN Consult reason: atrial fibrillation and congestive heart failure Reason For Visit: Peripheral edema, Pleural effusion, New onset AFib Narrative: Jennifer Coyle is a 74 y.o. female with a PMH of DM, HTN, HLD, Parkinson's and chronic back pain. She resides in an assisted living facility and has had issues with her back pain and reports d/t that she has been incontinent of urine. Then over the last week she began having trouble urinating and noticed that she was more short of breath at rest and with activity. She also, noted increasing lower extremity edema. She at that time decided to come to the ER. In the ER she was noted to have an elevated pBNP and CXR with small to moderate pleural effusion suggestive of CHF. She was also found to be in atrial fibrillation. She denies any previous history of atrial fibrillation. No recent falls. No reports of any chest pain or pressure. No dizziness or palpitations. We were asked to see regarding the CHF and atrial fibrillation Review of Systems Review of Systems: All systems reviewed & are unremarkable except as noted in HPI and below PMFSH Past Medical History Medical History (Updated 01/27/25 @ 03:47 by Laquita Mclean APRN) DM2 (diabetes mellitus, type 2) Chronic back pain Hypothyroidism Peripheral neuropathy Osteoarthritis Parkinsons Meningioma Hyperlipidemia Hypertension Depression Anxiety Neuropathy Diabetes Surgical History Surgical History (Updated 01/27/25 @ 03:19 by Laquita Mclean APRN) H/O cataract extraction H/O: hysterectomy History of tonsillectomy H/O brain surgery Family History Family History Father Cerebrovascular accident Family history of coronary artery disease Social History Social History (Updated 01/27/25 @ 03:21 by Laquita Mclean APRN) Social History: She currently resides at [facility]. She stated she has a son and daughter. She is retired. She is . Code status: According to her living will she is a full code but also mentions comfort measures? However the patient stated she wants to be a full code. Smoking packs per day: 0.5 Smoking cigarettes per day: 10.0 Years smoked: 38 Smoking pack-years: 19.00 Smoking status: Current every day smoker Tobacco type: cigarettes Alcohol intake: never Substance use: never Substance use type: does not use Lack of Transportation: No Lack of Food: Never True Current Housing: I Have Housing Concerned About Future Housing: No Difficulty Paying Gas/Electric Bills: No Difficulty Paying for Meds: No Currently Unemployed: No Education: High School Diploma/GED Difficulty w/ Childcare or Family Care: No Living arrangements: assisted living Spiritual care concerns: No Meds Home Medications and Allergies Home Medications ?Medication ?Instructions ?Recorded ?Confirmed ?Type acetaminophen 650 mg 1,300 mg PO Q8-10H PRN pain (scale 01/13/22 01/27/25 History tablet,extended release score 4-6) alprazolam 0.5 mg tablet,extended 0.5 mg PO DAILY 01/13/22 01/27/25 History release 24 hr amlodipine 2.5 mg tablet 2.5 mg PO DAILY 01/13/22 01/27/25 History atorvastatin 40 mg tablet 40 mg PO DAILY 01/13/22 01/27/25 History cyanocobalamin (vitamin B-12) 1,000 mcg PO DAILY 01/13/22 01/27/25 History 1,000 mcg tablet diclofenac sodium 1 % topical gel 2 g topical QID 01/13/22 01/27/25 History docusate sodium 100 mg tablet 100 mg PO DAILY 01/13/22 01/27/25 History ergocalciferol (vitamin D2) 1,250 50,000 unit PO WEEKLY 01/13/22 01/27/25 History mcg (50,000 unit) capsule (Vitamin D2) furosemide 40 mg tablet 40 mg PO PRN PRN Edema 01/13/22 01/27/25 History ibuprofen 800 mg tablet 800 mg PO TID PRN pain (scale 01/13/22 01/27/25 History score 1-3) insulin glargine 100 unit/mL (3 68 unit subcut DAILY 01/13/22 01/27/25 History mL) subcutaneous pen (Lantus Solostar U-100 Insulin) losartan 25 mg tablet 25 mg PO DAILY 01/13/22 01/27/25 History magnesium oxide 400 mg (241.3 mg 400 mg PO BID 01/13/22 01/27/25 History magnesium) tablet melatonin 5 mg tablet 10 mg PO HS 01/13/22 01/27/25 History mirabegron 50 mg tablet,extended 50 mg PO DAILY 01/13/22 01/27/25 History release 24 hr (Myrbetriq) quetiapine 25 mg tablet 25 mg PO HS 01/13/22 01/27/25 History triamcinolone acetonide 0.1 % 1 applic topical PRN PRN Itching 01/13/22 01/27/25 History topical cream bisacodyl 5 mg tablet 10 mg PO HS 01/27/25 01/27/25 History camphor-menthol 0.2 %-3.5 % 1 applic topical BID 01/27/25 01/27/25 History topical gel (Arctic Relief) morphine 15 mg tablet,extended 15 mg PO Q12H 01/27/25 01/27/25 History release ondansetron 4 mg disintegrating 4 mg PO Q8H PRN nausea and vomiting 01/27/25 01/27/25 History tablet oxycodone 5 mg tablet 5 mg PO Q6H PRN pain (scale score 01/27/25 01/27/25 History 7-10) pregabalin 50 mg capsule 75 mg PO BID 01/27/25 01/27/25 History sennosides 8.6 mg tablet 8.6 mg PO BID 01/27/25 01/27/25 History (Black-Draught Lax-Senna) tirzepatide 12.5 mg/0.5 mL 12.5 mg subcut WEEKLY 01/27/25 01/27/25 History subcutaneous pen injector (Stanislaw) tizanidine 2 mg tablet 2 mg PO Q8H PRN muscle spasticity 01/27/25 01/27/25 History Allergies Allergy/AdvReac Type Severity Reaction Status Date / Time codeine Allergy Unknown Nausea and Verified 01/26/25 23:53 Vomiting Vital Signs Vital Signs - 24 hr 01/26/25 13:59 01/26/25 17:09 01/26/25 19:01 Temperature 36.5 C Pulse Rate 80 93 110 H Respiratory Rate 19 18 Blood Pressure 122/94 H 128/91 H Pulse Oximetry 94 93 Oxygen Delivery Room Air 01/26/25 19:01 01/26/25 19:25 01/26/25 19:32 Temperature 36.8 C Pulse Rate 103 H 86 Respiratory Rate 12 10 L Blood Pressure 116/82 142/72 H Pulse Oximetry 93 91 Oxygen Delivery 01/26/25 19:47 01/26/25 20:02 01/26/25 20:17 Temperature Pulse Rate 102 H 91 116 H Respiratory Rate 10 L 12 12 Blood Pressure 137/102 H 128/85 127/80 Pulse Oximetry 90 93 93 Oxygen Delivery 01/26/25 21:17 01/26/25 21:31 01/26/25 23:30 Temperature Pulse Rate 90 113 H 106 H Respiratory Rate 11 L 11 L 18 Blood Pressure 98/65 L 119/81 123/86 Pulse Oximetry 100 Oxygen Delivery 01/26/25 23:44 01/27/25 00:00 01/27/25 00:00 Temperature 36.8 C Pulse Rate 110 H 136 H 112 H Respiratory Rate 18 18 Blood Pressure 120/72 108/68 Pulse Oximetry 100 90 Oxygen Delivery 01/27/25 02:00 01/27/25 04:00 01/27/25 04:00 Temperature 36.6 C Pulse Rate 112 H 121 H 107 H Respiratory Rate 18 18 Blood Pressure 96/70 L Pulse Oximetry 90 90 Oxygen Delivery Room Air 01/27/25 04:00 01/27/25 06:00 01/27/25 07:45 Temperature 36.8 C Pulse Rate 107 H 109 H 91 Respiratory Rate 20 Blood Pressure 100/47 L Pulse Oximetry 93 Oxygen Delivery Exam Const: General: no acute distress Neck: Neck: No no JVD Thyroid: thyroid normal Carotids: no bruits Resp: Effort & Inspection: normal respiratory effort Auscultation: diminished lung sounds Cardio: Rate: tachycardic Rhythm: abnormal rhythm Heart sounds: no gallops, no murmurs and no rubs Skin: General skin exam: normal color and no erythema Extrem: General: edema bilateral Psych: Mental Status: mental status grossly normal Results Labs and Meds 01/27/25 02:20 01/27/25 06:49 Lab results: Cardiac Enzymes 01/26/25 01/26/25 01/27/25 Range/Units 15:53 23:51 02:20 AST 28 (14-36) U/L Troponin I 0.012 < 0.012 < 0.012 (0.000-0.034) ng/mL Coagulation 11/17/25 Range/Units 15:53 PT 13.3 (11.1-14.7) Seconds APTT 27.9 (22.3-36.8) Seconds CBC 01/26/25 01/27/25 Range/Units 15:53 02:20 WBC 9.2 11.6 H (4.5-10.0) K/mm3 RBC 4.64 4.53 (4.2-5.4) M/mm3 Hgb 14.1 13.6 (12.0-15.0) g/dL Hct 45.8 44.4 (37.0-47.0) % Plt Count 364 376 H (150-375) k/mm3 Lymph # (Auto) 3.35 H (0.9-3.2) K/mm3 Mower # (Auto) 0.8 H (0.1-0.6) K/mm3 Eos # (Auto) 0.2 (0-0.3) K/mm3 Baso # (Auto) 0.1 (0.0-0.1) K/mm3 Comprehensive Metabolic Panel 01/26/25 01/27/25 Range/Units 15:53 06:49 Sodium 140 140 (137-145) mmol/L Potassium 4.1 4.6 (3.4-5.0) mmol/L Chloride 101 102 (98-107) mmol/L Carbon Dioxide 33 H 34 H (22-30) mmol/L BUN 14 D 16 (7-17) mg/dL Creatinine 0.76 0.77 (0.7-1.0) mg/dL Glucose 68 128 H (65-110) mg/dL Calcium 9.7 9.2 (8.4-10.2) mg/dL AST 28 (14-36) U/L ALT 14 (6-35) U/L Alkaline Phosphatase 128 H (38-126) U/L Total Protein 7.4 (6.3-8.2) g/dL Albumin 4.2 (3.5-5.1) g/dL Intake and Output 01/26/25 01/27/25 01/27/25 23:59 07:59 15:59 Intake Total 120 Output Total 50 1500 Balance -50 -1500 120 Intake: Oral 120 Output: Urine 50 1500 Patient Weight 01/27/25 23:59 Weight 134.5 kg Imaging and Cardiology EKG results: report reviewed EKG Interpretation EKG: no acute changes EKG shows: atrial fibrillation (rate of 90 bpm. )
[2025-01-27] MEDS: ENOXAPARIN 30 MG/0.3 ML SYRINGE SUB-Q ×2 (09:31→20:47)
[2025-01-27] MEDS: ENOXAPARIN 100 MG/ML SYRINGE SUB-Q ×2 (09:32→20:47)
[2025-01-27] MEDS: ATORVASTATIN 40 MG TABLET PO (09:32)
[2025-01-27] MEDS: FUROSEMIDE INJ 40 MG/4 ML VIAL IV PUSH ×2 (09:32→20:47)
[2025-01-27] MEDS: MIRABEGRON 50 MG ER TABLET PO (09:32)
[2025-01-27] MEDS: MAGNESIUM OXIDE 400 MG TABLET PO ×2 (09:32→20:46)
[2025-01-27] MEDS: PREGABALIN (*CRX) 75 MG CAPSULE PO ×2 (09:32→17:05)
[2025-01-27] MEDS: SENNOSIDES 8.6 MG TABLET PO ×2 (09:32→20:46)
[2025-01-27] MEDS: DOCUSATE SODIUM 100 MG CAPSULE PO (09:32)
[2025-01-27] MEDS: ALPRAZolam (*CRX) 0.25 MG TABLET BY MOUTH ×2 (09:33→17:05)
[2025-01-27] MEDS: INSULIN GLARGINE (*BKC) 100 UNITS/ML 54 UNITS SUB-Q (09:34)
[2025-01-27 10:07] LABS: Magnesium 2.1 mg/dL (1.6-2.3)
[2025-01-27] MEDS: PERFLUTREN LIPID MICROSPHERES 1.5 ML VIAL DILUTED TO 10 ML TOTAL VOLUME IV PUSH (12:09)
--- NOTE | 2025-01-27 12:09 | IVDEFINITY ---
Prior to administration of IV Definity the patient was educated on the risks and benefits of the imaging enhancing agent including potential adverse side effects. The patient verbalized understanding. Allergies were verified. No exclusion criteria were identified and at least one of the following inclusion criteria were met: 1) physician request, 2) patient technically difficult to image (per the [place] Society of Echocardiography guidelines of two or more segments not discernable within the apical view), or 3) questionable left ventricular function. ?
[2025-01-27] MEDS: DICLOFENAC SODIUM 1% 100 GM GEL (*BKC) 1 APPLIC TOPICAL ×3 (13:00→20:48)
[2025-01-27] MEDS: BISACODYL 5 MG TABLET EC 10 MG PO (20:44)
[2025-01-27] MEDS: MELATONIN 5 MG TABLET 10 MG PO (20:45)
[2025-01-28] VITALS (22 sets, daily range): BP systolic 93–135; BP diastolic 69–114; PULSE 64–110; RESP 20; TEMP 36.1–36.7; O2SAT 90–94
[2025-01-28 04:37] LABS: Hematocrit 43.1 % (37.0-47.0); Hemoglobin 12.8 g/dL (12.0-15.0); Mean Corpuscular HGB Conc 29.7 g/dl (32-36); Mean Corpuscular Hemoglobin 29.8 pg (26-34); Mean Corpuscular Volume 100.5 fl (80-100); Platelet Count Result 344 k/mm3 (150-375); Red Blood Count 4.29 M/mm3 (4.2-5.4); White Blood Count 9.7 K/mm3 (4.5-10.0)
[2025-01-28 04:49] LABS: Alanine Aminotransferase 10 U/L (6-35); Albumin Level 3.5 g/dL (3.5-5.1); Alkaline Phosphatase 116 U/L (38-126); Anion Gap 5 mmol/L (4-12); Aspartate Amino Transferase 21 U/L (14-36); Bilirubin,Total 0.4 mg/dL (0.2-1.3); Blood Urea Nitrogen 18 mg/dL (7-17); Calcium 8.6 mg/dL (8.4-10.2); Carbon Dioxide 32 mmol/L (22-30); Chloride 99 mmol/L (98-107); Estimated CRCL calculation 68 ml/min; Estimated Glomerular Filt Rate > 60; Glucose 113 mg/dL (65-110); Potassium 3.6 mmol/L (3.4-5.0); Sodium 136 mmol/L (137-145); Total Protein 6.3 g/dL (6.3-8.2)
[2025-01-28 07:40] LABS: Magnesium 2.3 mg/dL (1.6-2.3)
--- NOTE | 2025-01-28 08:23 | ECG_ITS ---
Test Date: 2025-01-28 12:14:09 Measurements Intervals [place] Rate: 97 P: 0 CO: 0 QRS: 17 QRSD: 154 T: 143 QT: 423 QTc: 539 Interpretive Statements ATRIAL FIBRILLATION LEFT BUNDLE BRANCH BLOCK [120+ ms QRS DURATION, 80+ ms Q/S IN V1/V2, 85+ ms R IN I/aVL/V5/V6] ABNORMAL ECG Compared to ECG 01/26/2025 15:51:54 Left bundle-branch block now present Intraventricular conduction delay no longer present Electronically Signed On 01-28-2025 17:15:15 SHOW HOST by Vernon Ivey M.D.
[2025-01-28] MEDS: INSULIN GLARGINE (*BKC) 100 UNITS/ML 54 UNITS SUB-Q (09:07)
[2025-01-28] MEDS: FUROSEMIDE INJ 40 MG/4 ML VIAL IV PUSH ×2 (09:09→20:33)
[2025-01-28] MEDS: PREGABALIN (*CRX) 75 MG CAPSULE PO ×2 (09:09→17:27)
[2025-01-28] MEDS: MORPHINE SULFATE (*CRX) 15 MG TABCR PO (09:09)
[2025-01-28] MEDS: APIXABAN 5 MG TABLET PO ×2 (09:09→20:33)
[2025-01-28] MEDS: POTASSIUM CHLORIDE 20 MEQ ER TABLET 40 MEQ PO (09:09)
[2025-01-28] MEDS: MAGNESIUM OXIDE 400 MG TABLET PO ×2 (09:09→20:33)
[2025-01-28] MEDS: MIRABEGRON 50 MG ER TABLET PO (09:09)
[2025-01-28] MEDS: DOCUSATE SODIUM 100 MG CAPSULE PO (09:10)
[2025-01-28] MEDS: SENNOSIDES 8.6 MG TABLET PO ×2 (09:10→20:33)
[2025-01-28] MEDS: ALPRAZolam (*CRX) 0.25 MG TABLET BY MOUTH ×2 (09:10→17:28)
[2025-01-28] MEDS: ATORVASTATIN 40 MG TABLET PO (09:10)
[2025-01-28] MEDS: DICLOFENAC SODIUM 1% 100 GM GEL (*BKC) 1 APPLIC TOPICAL ×3 (09:14→17:28)
--- NOTE | 2025-01-28 09:27 | P.PNCA_ITS ---
Progress Note: A&P Assessment and Plan (1) Atrial fibrillation: Code(s): I48.91 - Unspecified atrial fibrillation Status: Acute Assessment and Plan: * unclear if new onset or chronic (patient feels symptoms began a week ago) * was started on IV amiodarone and rate is better controlled. Appears still in afib however, on tele monitor, will update EKG * will change to oral amiodarone 200 mg BID and plan f/u in office in the next 2-4 weeks and can consider OP CV if remains in atrial fibrillation * on Eliquis 5 mg BID for AC risk/benefits of AC discussed with patient and understanding was verbalized. * her TSH is wnl. Keep K>4 and Mag >2 (2) Elevated brain natriuretic peptide (BNP) level: Code(s): R79.89 - Other specified abnormal findings of blood chemistry Status: Acute Assessment and Plan: * most likely acute CHF in setting of afib with RVR * echo shows severe systolic dysfunction with EF of 25-30%, with mild to moderate MR and mod pulm HTN * her pBNP was elevated at 1710 and CXR revealed pleural effusion * has been on IV lasix and appears better compensated would shift to PO in am * will resume her losartan 25 mg daily in setting of new cardiomyopathy (3) Hypertension: Code(s): I10 - Essential (primary) hypertension Status: Acute Assessment and Plan: * Blood pressure stable this am * Will resume losartan 25 mg daily * would continue to hold norvasc to allow other GDMT in setting of cardiomyopathy (4) Hyperlipidemia: Code(s): E78.5 - Hyperlipidemia, unspecified Status: Acute Assessment and Plan: * continue atorvastatin 40 mg daily (5) DM2 (diabetes mellitus, type 2): Code(s): E11.9 - Type 2 diabetes mellitus without complications Status: Acute Assessment and Plan: * glycemic control as per primary team (6) Chronic back pain: Code(s): M54.9 - Dorsalgia, unspecified; G89.29 - Other chronic pain Status: Acute Assessment and Plan: * pain management as per primary team (7) Edema, peripheral: Code(s): R60.0 - Localized edema Status: Acute Assessment and Plan: * most likely secondary to acute volume overload * will monitor with diuresis * has improved (8) Cardiomyopathy: Code(s): I42.9 - Cardiomyopathy, unspecified Status: Acute Assessment and Plan: * new cardiomyopathy. EF of 25-30% per echo * unclear if ischemic or non-ischemic * may be rate related in setting of atrial fibrillation * her troponin were negative this admission * will plan OP f/u and possible stress test and repeat echo * continue losartan 25 mg daily. No BB d/t bradycardia at night * consider SGLT-2 Plan * will transition to amiodarone 200 mg BID * resume losartan * plan OP f/u for possible ischemic evaluation and cardioversion Subjective Date/time seen: 01/28/25 09:27 Interval history: Date of Service 01/28/25: Patient is sitting up in bed. No c/o any chest pain or shortness of breath at this time. Her LE edema has improved. Review of Systems Review of Systems: All systems reviewed & are unremarkable except as noted in HPI and below Exam Const: General: no acute distress Neck: Neck: No no JVD Thyroid: thyroid normal Carotids: no bruits Resp: Effort & Inspection: normal respiratory effort Auscultation: diminished lung sounds Cardio: Rate: tachycardic Rhythm: abnormal rhythm Heart sounds: no gallops, no murmurs and no rubs Skin: General skin exam: normal color and no erythema Extrem: General: edema bilateral Other: improved Psych: Mental Status: mental status grossly normal Objective Data Vital Signs Vital Signs: Vital Signs - 24 hr 01/27/25 09:28 01/27/25 09:31 01/27/25 10:00 Temperature Pulse Rate 123 H 123 H 117 H Respiratory Rate Blood Pressure 136/87 136/87 Pulse Oximetry Oxygen Delivery 01/27/25 11:56 01/27/25 12:00 01/27/25 12:00 Temperature 36.9 C Pulse Rate 108 H 117 H 117 H Respiratory Rate 20 20 Blood Pressure 109/66 Pulse Oximetry 95 95 Oxygen Delivery Room Air 01/27/25 12:00 01/27/25 14:00 01/27/25 14:00 Temperature Pulse Rate 108 H 81 81 Respiratory Rate Blood Pressure 109/66 140/108 H Pulse Oximetry Oxygen Delivery 01/27/25 14:37 01/27/25 14:38 01/27/25 15:00 Temperature Pulse Rate 90 Respiratory Rate Blood Pressure 140/108 H 134/113 H 98/74 L Pulse Oximetry Oxygen Delivery 01/27/25 15:45 01/27/25 16:00 01/27/25 16:00 Temperature 36.7 C Pulse Rate 109 H 104 H 104 H Respiratory Rate 20 20 Blood Pressure 109/80 Pulse Oximetry 96 96 Oxygen Delivery Room Air 01/27/25 20:00 01/27/25 20:00 01/27/25 20:00 Temperature 36.6 C Pulse Rate 101 H 72 72 Respiratory Rate 20 20 Blood Pressure 117/55 L Pulse Oximetry 90 90 Oxygen Delivery Room Air 01/27/25 20:00 01/27/25 22:00 01/27/25 22:00 Temperature Pulse Rate 72 84 84 Respiratory Rate 20 Blood Pressure 117/55 L 126/74 Pulse Oximetry Oxygen Delivery 01/27/25 22:00 01/27/25 23:49 01/28/25 00:00 Temperature 36.6 C Pulse Rate 84 97 84 Respiratory Rate 20 20 Blood Pressure 126/74 113/89 Pulse Oximetry 90 90 Oxygen Delivery Room Air 01/28/25 00:00 01/28/25 00:00 01/28/25 02:00 Temperature Pulse Rate 84 84 64 Respiratory Rate Blood Pressure 113/89 125/76 Pulse Oximetry Oxygen Delivery 01/28/25 02:00 01/28/25 02:00 01/28/25 03:07 Temperature Pulse Rate 64 64 72 Respiratory Rate Blood Pressure 125/76 Pulse Oximetry Oxygen Delivery 01/28/25 03:07 01/28/25 03:29 01/28/25 03:29 Temperature Pulse Rate 72 78 78 Respiratory Rate 20 Blood Pressure Pulse Oximetry 90 Oxygen Delivery Room Air 01/28/25 04:00 01/28/25 04:00 01/28/25 06:00 Temperature 36.5 C Pulse Rate 74 74 82 Respiratory Rate 20 Blood Pressure 106/69 106/69 Pulse Oximetry 91 Oxygen Delivery 01/28/25 06:00 01/28/25 06:00 01/28/25 07:36 Temperature Pulse Rate 82 82 Respiratory Rate Blood Pressure 120/72 120/72 Pulse Oximetry 94 Oxygen Delivery Room Air 01/28/25 08:09 Temperature 36.1 C L Pulse Rate 74 Respiratory Rate 20 Blood Pressure 114/75 Pulse Oximetry 94 Oxygen Delivery Intake/Output Intake/Output: Intake & Output 01/25/25 01/26/25 01/27/25 01/28/25 23:59 23:59 23:59 23:59 Intake Total 1166.2 481.3 Output Total 50 3320 700 Balance -50 -1683.8 -218.7 Meds/Results Medications: Active Medications Generic Name Dose Route Start Last Admin Trade Name Freq PRN Reason Stop Dose Admin Acetaminophen 650 mg 01/26/25 20:06 Acetaminophen 325 Mg Tablet PO Q4H PRN Mild Pain (1-3) or Fever Alprazolam 0.25 mg 01/27/25 09:00 01/28/25 09:10 Alprazolam (*Crx) 0.25 Mg Tablet BY MOUTH 0.25 mg BID JEY Administration Apixaban 5 mg 01/28/25 09:00 01/28/25 09:09 Apixaban 5 Mg Tablet PO 5 mg Q12HR JEY Administration Atorvastatin Calcium 40 mg 01/27/25 09:00 01/28/25 09:10 Atorvastatin 40 Mg Tablet PO 40 mg DAILY JEY Administration Bisacodyl 10 mg 01/27/25 21:00 01/27/25 20:44 Bisacodyl 5 Mg Tablet Ec PO 10 mg HS JEY Administration Dextrose 12.5 gm 01/27/25 03:47 Dextrose 50% 25 Gm/50 Ml Syringe IV PUSH PRN PRN Hypoglycemia Protocol Diclofenac Sodium 1 applic 01/27/25 09:00 01/28/25 09:14 Diclofenac Sodium 1% 100 Gm Gel (*Bkc) TOPICAL 1 applic QID JEY Administration Docusate Sodium 100 mg 01/27/25 09:00 01/28/25 09:10 Docusate Sodium 100 Mg Capsule PO 100 mg DAILY JEY Administration Ergocalciferol 50,000 mcg 01/27/25 09:00 01/27/25 17:03 Ergocalciferol (Vitamin D2) 1,250 Mcg (50,000 Units) Capsule PO Not Given WEEKLY JEY Furosemide 40 mg 01/26/25 21:00 01/28/25 09:09 Furosemide Inj 40 Mg/4 Ml Vial IV PUSH 40 mg Q12HR JEY Administration Glucagon 1 mg 01/27/25 03:47 Glucagon For Inj 1 Mg Vial IM PRN PRN Hypoglycemia Protocol Glucose 15 gm 01/27/25 03:47 Glucose Oral Gel 15 Gm Of Glucse In 37.5 Gm Tube PO PRN PRN Hypoglycemia Protocol Dextrose 1,000 mls @ 100 mls/hr 01/27/25 03:47 Dextrose 5% 1,000 Ml IVPB PRN PRN Hypoglycemia Protocol Amiodarone HCl/Dextrose 360 mg in 200 mls @ 16.667 mls/hr 01/27/25 15:10 01/28/25 06:00 Nexterone 360 Mg/D5w 200 Ml IV CONT 0.5 mg/min .Q12H JEY 16.67 mls/hr 0.5 MG/MIN Infusion Insulin Aspart 2 - 5 units 01/27/25 08:00 01/28/25 09:07 Insulin Aspart (*Bkc) 100 Units/Ml SUB-Q Not Given TIDWM JEY Protocol Insulin Glargine 54 units 01/27/25 09:00 01/28/25 09:07 Insulin Glargine (*Bkc) 100 Units/Ml SUB-Q 54 units DAILY JEY Administration Losartan Potassium 25 mg 01/27/25 09:00 Losartan Potassium 25 Mg Tablet PO On Hold: 01/27/25 09:00 DAILY JEY Magnesium Oxide 400 mg 01/27/25 09:00 01/28/25 09:09 Magnesium Oxide 400 Mg Tablet PO 400 mg Q12HR JEY Administration Melatonin 10 mg 01/27/25 21:00 01/27/25 20:45 Melatonin 5 Mg Tablet PO 10 mg HS JEY Administration Mirabegron 50 mg 01/27/25 09:00 01/28/25 09:09 Mirabegron 50 Mg Er Tablet PO 50 mg DAILY JEY Administration Morphine Sulfate 15 mg 01/27/25 02:10 01/28/25 09:09 Morphine Sulfate (*Crx) 15 Mg Tabcr PO 15 mg Q12HR JEY Administration Ondansetron HCl 4 mg 01/27/25 01:34 Ondansetron Hcl Odt 4 Mg Tablet PO Q8H PRN Nausea And Vomiting Pregabalin 75 mg 01/27/25 09:00 01/28/25 09:09 Pregabalin (*Crx) 75 Mg Capsule PO 75 mg BID JEY Administration Quetiapine Fumarate 25 mg 01/27/25 21:00 01/27/25 20:46 Quetiapine Fumarate 25 Mg Tablet PO 25 mg HS JEY Administration Senna 8.6 mg 01/27/25 09:00 01/28/25 09:10 Sennosides 8.6 Mg Tablet PO 8.6 mg Q12HR JEY Administration Tizanidine HCl 2 mg 01/27/25 01:34 Tizanidine Hcl 2 Mg Tablet PO Q8H PRN Muscle Spasticity Radiology Results: ITS Impressions Head CT 01/26/25 14:44 IMPRESSION: 1. No large acute ischemic event, mass effect or hemorrhage. 2. Chronic findings as above. Venous Doppler Study 01/26/25 15:11 IMPRESSION: 1. No evidence of DVT noted in both lower extremities. 2. If clinical suspicion of DVT persists repeat study is recommended after one week for reevaluation to rule out extension of thrombus from the calf. Chest X-Ray 01/26/25 15:22 IMPRESSION: 1. Cardiomegaly with atherosclerotic aorta. 2. [id number] right pleural effusion. Minimal blunting of left costophrenic angle. Abdomen/Pelvis CT 01/27/25 08:29 IMPRESSION: 1. No acute intra-abdominal/pelvic process. 2. 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 Recommend nonemergent urologic consultation. 3. Small bilateral pleural effusions with associated dependent atelectasis in both lower lobes, right greater than left. 4. Mild cardiomegaly. Labs Labs: Laboratory Results - last 24 hr 01/27/25 01/27/25 01/27/25 06:49 11:33 15:14 WBC RBC Hgb Hct MCV MCH MCHC RDW Plt Count MPV Sodium Potassium Chloride Carbon Dioxide Anion Gap BUN Creatinine Estim Creat Clear Calc Estimated GFR Glucose POC Capillary Glucose 168 H 125 H Calcium Magnesium 2.1 Total Bilirubin AST ALT Alkaline Phosphatase Total Protein Albumin 01/27/25 01/28/25 01/28/25 19:44 04:09 07:33 WBC 9.7 RBC 4.29 Hgb 12.8 Hct 43.1 MCV 100.5 H MCH 29.8 MCHC 29.7 L RDW 14.3 Plt Count 344 MPV 9.9 Sodium 136 L Potassium 3.6 Chloride 99 Carbon Dioxide 32 H Anion Gap 5 BUN 18 H Creatinine 0.82 Estim Creat Clear Calc 68 Estimated GFR > 60 Glucose 113 H POC Capillary Glucose 172 H 117 H Calcium 8.6 Magnesium 2.3 Total Bilirubin 0.4 AST 21 ALT 10 Alkaline Phosphatase 116 Total Protein 6.3 Albumin 3.5
[2025-01-28] MEDS: AMIODARONE HCL 200 MG TABLET PO ×2 (10:09→17:27)
--- NOTE | 2025-01-28 14:30 | P.PNIM_ITS ---
Progress Note: A&P Assessment and Plan (1) Atrial fibrillation: Code(s): I48.91 - Unspecified atrial fibrillation Status: Acute Assessment and Plan: * unclear if new onset or chronic (patient feels symptoms began a week ago) * was started on IV amiodarone and rate is better controlled. Appears still in afib however, on tele monitor, will update EKG * will change to oral amiodarone 200 mg BID and plan f/u in office in the next 2-4 weeks and can consider OP CV if remains in atrial fibrillation * on Eliquis 5 mg BID for AC risk/benefits of AC discussed with patient and understanding was verbalized. * her TSH is wnl. Keep K>4 and Mag >2 (2) Elevated brain natriuretic peptide (BNP) level: Code(s): R79.89 - Other specified abnormal findings of blood chemistry Status: Acute Assessment and Plan: * most likely acute CHF in setting of afib with RVR * echo shows severe systolic dysfunction with EF of 25-30%, with mild to moderate MR and mod pulm HTN * her pBNP was elevated at 1710 and CXR revealed pleural effusion * has been on IV lasix and appears better compensated would shift to PO in am * will resume her losartan 25 mg daily in setting of new cardiomyopathy (3) Hypertension: Code(s): I10 - Essential (primary) hypertension Status: Acute Assessment and Plan: * Blood pressure stable this am * Will resume losartan 25 mg daily * would continue to hold norvasc to allow other GDMT in setting of cardiomyopathy (4) Hyperlipidemia: Code(s): E78.5 - Hyperlipidemia, unspecified Status: Acute Assessment and Plan: * continue atorvastatin 40 mg daily (5) DM2 (diabetes mellitus, type 2): Code(s): E11.9 - Type 2 diabetes mellitus without complications Status: Acute Assessment and Plan: * Fingerstick glucose with meals and before bed * 20% reduction in glargine dose now 54 units daily while hospitalized * Low-dose sliding scale insulin added * A1c was 6.3 on admission (6) Chronic back pain: Code(s): M54.9 - Dorsalgia, unspecified; G89.29 - Other chronic pain Status: Acute Assessment and Plan: * Discontinue morphine and home oxycodone * Initiate duloxetine for depression with potential secondary benefit chronic pain management (7) Edema, peripheral: Code(s): R60.0 - Localized edema Status: Acute Assessment and Plan: * most likely secondary to acute volume overload * will monitor with diuresis * has improved * Cardiology recommending transition to oral diuretics on 01/29 (8) Cardiomyopathy: Code(s): I42.9 - Cardiomyopathy, unspecified Status: Acute Assessment and Plan: * new cardiomyopathy. EF of 25-30% per echo * unclear if ischemic or non-ischemic * may be rate related in setting of atrial fibrillation * her troponin were negative this admission * will plan OP f/u and possible stress test and repeat echo * continue losartan 25 mg daily. No BB d/t bradycardia at night * consider SGLT-2 Plan * will transition to amiodarone 200 mg BID * resume losartan * Patient remains in atrial fibrillation with rate in the 90s to 110s * plan OP f/u for possible ischemic evaluation and cardioversion Time Spent With Patient Time with patient: Greater than 35 minutes Subjective Date/time seen: 01/28/25 14:30 Interval history: 74-year-old female patient admitted to the hospital for severe swelling related to congestive heart failure as well as atrial fibrillation with rapid ventricular rate. Blood pressure had been on the low side unable to use standard rate controlling medications. Patient received amiodarone which did improve her rate though she remained in atrial fibrillation. Cardiology saw patient and recommended IV diuresis as well as electrolyte replacement to keep potassium above 4 and magnesium above 2. Magnesium added to labs normal at 2.3 today. Potassium was 3.6 and oral replacement was ordered. Patient has been on oral morphine and oxycodone at her assisted living facility due to severe back pain and sciatica. Patient has also been on long-term treatment with Lyrica and tizanidine. Today the patient's daughter stated that she believes the patient has gotten worse on narcotic pain medications and wants to stop them. Patient is agreeable. Additionally, the daughter stated that buster abebe has had long-term anxiety and depression but she is not on an antidepressant. She believes that they have been told all along that the patient was on 9 antidepressant however none were listed on her medication reconciliation form. Patient had been established with palliative care they do not want to cancel this. They do not want to discuss hospice. Both the patient and the daughter recognized that the patient has been refusing certain care like changing her depends. They acknowledge that she will have to undergo rehab/therapy prior to being accepted back at assisted living facility. We will make sure PT and OT ordered. Review of Systems Review of Systems: Patient denies chest pain, current shortness of breath, fever, chills, nausea, vomiting or troubles using the restroom. All systems reviewed & are unremarkable except as noted in HPI and below Exam Const: General: no acute distress Neck: Neck: No no JVD Thyroid: thyroid normal Carotids: no bruits Resp: Effort & Inspection: normal respiratory effort Auscultation: diminished lung sounds Cardio: Rate: tachycardic Rhythm: abnormal rhythm Heart sounds: no gallops, no murmurs and no rubs Skin: General skin exam: normal color and no erythema Extrem: General: edema bilateral Other: improved Psych: Mental Status: mental status grossly normal Objective Data Vital Signs Vital Signs: Vital Signs - 24 hr 01/27/25 14:37 01/27/25 14:38 01/27/25 15:00 Temperature Pulse Rate 90 Respiratory Rate Blood Pressure 140/108 H 134/113 H 98/74 L Pulse Oximetry Oxygen Delivery 01/27/25 15:45 01/27/25 16:00 01/27/25 16:00 Temperature 36.7 C Pulse Rate 109 H 104 H 104 H Respiratory Rate 20 20 Blood Pressure 109/80 Pulse Oximetry 96 96 Oxygen Delivery Room Air 01/27/25 20:00 01/27/25 20:00 01/27/25 20:00 Temperature 36.6 C Pulse Rate 101 H 72 72 Respiratory Rate 20 20 Blood Pressure 117/55 L Pulse Oximetry 90 90 Oxygen Delivery Room Air 01/27/25 20:00 01/27/25 22:00 01/27/25 22:00 Temperature Pulse Rate 72 84 84 Respiratory Rate 20 Blood Pressure 117/55 L 126/74 Pulse Oximetry Oxygen Delivery 01/27/25 22:00 01/27/25 23:49 01/28/25 00:00 Temperature 36.6 C Pulse Rate 84 97 84 Respiratory Rate 20 20 Blood Pressure 126/74 113/89 Pulse Oximetry 90 90 Oxygen Delivery Room Air 01/28/25 00:00 01/28/25 00:00 01/28/25 02:00 Temperature Pulse Rate 84 84 64 Respiratory Rate Blood Pressure 113/89 125/76 Pulse Oximetry Oxygen Delivery 01/28/25 02:00 01/28/25 02:00 01/28/25 03:07 Temperature Pulse Rate 64 64 72 Respiratory Rate Blood Pressure 125/76 Pulse Oximetry Oxygen Delivery 01/28/25 03:07 01/28/25 03:29 01/28/25 03:29 Temperature Pulse Rate 72 78 78 Respiratory Rate 20 Blood Pressure Pulse Oximetry 90 Oxygen Delivery Room Air 01/28/25 04:00 01/28/25 04:00 01/28/25 06:00 Temperature 36.5 C Pulse Rate 74 74 82 Respiratory Rate 20 Blood Pressure 106/69 106/69 Pulse Oximetry 91 Oxygen Delivery 01/28/25 06:00 01/28/25 06:00 01/28/25 07:36 Temperature Pulse Rate 82 82 Respiratory Rate Blood Pressure 120/72 120/72 Pulse Oximetry 94 Oxygen Delivery Room Air 01/28/25 08:00 01/28/25 08:00 01/28/25 08:09 Temperature 36.1 C L Pulse Rate 74 86 74 Respiratory Rate 20 20 Blood Pressure 114/75 Pulse Oximetry 94 94 Oxygen Delivery Room Air 01/28/25 10:00 01/28/25 10:09 01/28/25 10:39 Temperature Pulse Rate 89 103 H 77 Respiratory Rate Blood Pressure 93/79 L Pulse Oximetry Oxygen Delivery 01/28/25 12:00 01/28/25 12:00 01/28/25 12:31 Temperature 36.6 C Pulse Rate 84 84 110 H Respiratory Rate 20 20 Blood Pressure 134/114 H Pulse Oximetry 93 93 Oxygen Delivery Room Air Intake/Output Intake/Output: Intake & Output 01/25/25 01/26/25 01/27/25 01/28/25 23:59 23:59 23:59 23:59 Intake Total 1166.2 721.3 Output Total 50 5570 1500 Balance -50 -1683.8 -778.7 Meds/Results Medications: Active Medications Generic Name Dose Route Start Last Admin Trade Name Freq PRN Reason Stop Dose Admin Acetaminophen 650 mg 01/26/25 20:06 Acetaminophen 325 Mg Tablet PO Q4H PRN Mild Pain (1-3) or Fever Alprazolam 0.25 mg 01/27/25 09:00 01/28/25 09:10 Alprazolam (*Crx) 0.25 Mg Tablet BY MOUTH 0.25 mg BID JEY Administration Amiodarone HCl 200 mg 01/28/25 10:00 01/28/25 10:09 Amiodarone Hcl 200 Mg Tablet PO 200 mg BID JEY Administration Apixaban 5 mg 01/28/25 09:00 01/28/25 09:09 Apixaban 5 Mg Tablet PO 5 mg Q12HR JEY Administration Atorvastatin Calcium 40 mg 01/27/25 09:00 01/28/25 09:10 Atorvastatin 40 Mg Tablet PO 40 mg DAILY JEY Administration Bisacodyl 10 mg 01/27/25 21:00 01/27/25 20:44 Bisacodyl 5 Mg Tablet Ec PO 10 mg HS JEY Administration Dextrose 12.5 gm 01/27/25 03:47 Dextrose 50% 25 Gm/50 Ml Syringe IV PUSH PRN PRN Hypoglycemia Protocol Diclofenac Sodium 1 applic 01/27/25 09:00 01/28/25 12:44 Diclofenac Sodium 1% 100 Gm Gel (*Bkc) TOPICAL 1 applic QID JEY Administration Docusate Sodium 100 mg 01/27/25 09:00 01/28/25 09:10 Docusate Sodium 100 Mg Capsule PO 100 mg DAILY JEY Administration Ergocalciferol 50,000 mcg 01/27/25 09:00 01/27/25 17:03 Ergocalciferol (Vitamin D2) 1,250 Mcg (50,000 Units) Capsule PO Not Given WEEKLY JEY Furosemide 40 mg 01/26/25 21:00 01/28/25 09:09 Furosemide Inj 40 Mg/4 Ml Vial IV PUSH 40 mg Q12HR JEY Administration Glucagon 1 mg 01/27/25 03:47 Glucagon For Inj 1 Mg Vial IM PRN PRN Hypoglycemia Protocol Glucose 15 gm 01/27/25 03:47 Glucose Oral Gel 15 Gm Of Glucse In 37.5 Gm Tube PO PRN PRN Hypoglycemia Protocol Dextrose 1,000 mls @ 100 mls/hr 01/27/25 03:47 Dextrose 5% 1,000 Ml IVPB PRN PRN Hypoglycemia Protocol Insulin Aspart 2 - 5 units 01/27/25 08:00 01/28/25 12:44 Insulin Aspart (*Bkc) 100 Units/Ml SUB-Q Not Given TIDWM JEY Protocol Insulin Glargine 54 units 01/27/25 09:00 01/28/25 09:07 Insulin Glargine (*Bkc) 100 Units/Ml SUB-Q 54 units DAILY JEY Administration Losartan Potassium 25 mg 01/27/25 09:00 Losartan Potassium 25 Mg Tablet PO DAILY JEY Magnesium Oxide 400 mg 01/27/25 09:00 01/28/25 09:09 Magnesium Oxide 400 Mg Tablet PO 400 mg Q12HR JEY Administration Melatonin 10 mg 01/27/25 21:00 01/27/25 20:45 Melatonin 5 Mg Tablet PO 10 mg HS JEY Administration Mirabegron 50 mg 01/27/25 09:00 01/28/25 09:09 Mirabegron 50 Mg Er Tablet PO 50 mg DAILY JEY Administration Morphine Sulfate 15 mg 01/27/25 02:10 01/28/25 09:09 Morphine Sulfate (*Crx) 15 Mg Tabcr PO 15 mg Q12HR JEY Administration Ondansetron HCl 4 mg 01/27/25 01:34 Ondansetron Hcl Odt 4 Mg Tablet PO Q8H PRN Nausea And Vomiting Pregabalin 75 mg 01/27/25 09:00 01/28/25 09:09 Pregabalin (*Crx) 75 Mg Capsule PO 75 mg BID JEY Administration Quetiapine Fumarate 25 mg 01/27/25 21:00 01/27/25 20:46 Quetiapine Fumarate 25 Mg Tablet PO 25 mg HS JEY Administration Senna 8.6 mg 01/27/25 09:00 01/28/25 09:10 Sennosides 8.6 Mg Tablet PO 8.6 mg Q12HR JEY Administration Tizanidine HCl 2 mg 01/27/25 01:34 Tizanidine Hcl 2 Mg Tablet PO Q8H PRN Muscle Spasticity Radiology Results: ITS Impressions Head CT 01/26/25 14:44 IMPRESSION: 1. No large acute ischemic event, mass effect or hemorrhage. 2. Chronic findings as above. Venous Doppler Study 01/26/25 15:11 IMPRESSION: 1. No evidence of DVT noted in both lower extremities. 2. If clinical suspicion of DVT persists repeat study is recommended after one week for reevaluation to rule out extension of thrombus from the calf. Chest X-Ray 01/26/25 15:22 IMPRESSION: 1. Cardiomegaly with atherosclerotic aorta. 2. [id number] right pleural effusion. Minimal blunting of left costophrenic angle. Abdomen/Pelvis CT 01/27/25 08:29 IMPRESSION: 1. No acute intra-abdominal/pelvic process. 2. 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 Recommend nonemergent urologic consultation. 3. Small bilateral pleural effusions with associated dependent atelectasis in both lower lobes, right greater than left. 4. Mild cardiomegaly. Exam Type: CA echo dop color flow w con Complete two-dimensional, color flow and Doppler transthoracic echocardiogram is performed with contrast to opacify the left ventricle and to improve the deliniation of the left ventricle endocardial borders. Staff Referring Physician: Laquita Mclean TUFTER HAND Director [employer] Communications: Morris Betancourt III Attending Provider: Ondina Victor Contrast/Agitated Saline Contrast/Ag. Saline: Definity Amount: 2.00 ml Administered By: Morris Betancourt III Existing IV Access: Yes IV Access Condition: patent with no signs of infiltration Reason for Poor Study: poor echocardiographic windows Summary 1. Patient unable to lay on L side. 2. Left ventricular chamber dimension is mildly enlarged. 3. Left ventricular systolic function is severely reduced, estimated at 25-30. 4. There is mildly increased left ventricular wall thickness. 5. The left ventricular diastolic function is abnormal. 6. Left atrial chamber dimension is moderately enlarged. 7. Right atrial chamber dimension is mildly enlarged. 8. There is moderate aortic valve stenosis with a peak velocity of 261 cm/s, mean gradient of 16 mmHg, and aortic valve area of 1.3 cm2. 9. There is mild aortic valve regurgitation. 10. There is moderate aortic valve calcification. 11. There is mild to moderate mitral valve regurgitation. 12. The mitral valve annulus is severely calcified. 13. There is mild tricuspid valve regurgitation. 14. Moderate pulmonary hypertension, estimated pulmonary arterial systolic pressure is 47 mmHg. Labs Labs: Laboratory Results - last 24 hr 01/27/25 01/27/25 01/28/25 15:14 19:44 04:09 WBC 9.7 RBC 4.29 Hgb 12.8 Hct 43.1 MCV 100.5 H MCH 29.8 MCHC 29.7 L RDW 14.3 Plt Count 344 MPV 9.9 Sodium 136 L Potassium 3.6 Chloride 99 Carbon Dioxide 32 H Anion Gap 5 BUN 18 H Creatinine 0.82 Estim Creat Clear Calc 68 Estimated GFR > 60 Glucose 113 H POC Capillary Glucose 125 H 172 H Calcium 8.6 Magnesium 2.3 Total Bilirubin 0.4 AST 21 ALT 10 Alkaline Phosphatase 116 Total Protein 6.3 Albumin 3.5 01/28/25 01/28/25 07:33 10:57 WBC RBC Hgb Hct MCV MCH MCHC RDW Plt Count MPV Sodium Potassium Chloride Carbon Dioxide Anion Gap BUN Creatinine Estim Creat Clear Calc Estimated GFR Glucose POC Capillary Glucose 117 H 128 H Calcium Magnesium Total Bilirubin AST ALT Alkaline Phosphatase Total Protein Albumin Imaging Radiologist's impression: EXAMINATION: CT abdomen pelvis w con DATE: 01/27/2025 08:25 INDICATION: Tender distended abdomen TECHNIQUE: Computed tomography (CT) of the abdomen and pelvis was performed with 100 mL Omnipaque-350 intravenous contrast. Automated exposure control and iterative reconstruction technique were employed. The dose-length product was 1608.84 mGy-cm. COMPARISON: CT dated 10/10/2018 FINDINGS: Small bowel posterior layering pleural effusions with partial collapse of the right lower lobe and additional dependent atelectasis along the posterior left lower lobe. Mild cardiomegaly. Aortic valve and mitral annular calcification. Small amount of atherosclerotic coronary artery calcification. No pericardial effusion. Diffuse hepatic steatosis. Gallbladder, spleen, pancreas and bilateral adrenal glands are normal. There are bilateral low-attenuation renal cysts the largest measuring 2.3 cm at the lower pole the right kidney. There is a 2.2 cm predominantly cystic exophytic lesion at the upper pole the right kidney with irregular peripheral enhancing wall which includes a peripheral 10 x 7 mm enhancing nodular component as seen on coronal series 601, image 92 consistent with a Bosniak 4 lesion, highly likely to represent a renal cell carcinoma. Bowels including the appendix are normal. Bladder is normal. The uterus is not identified and has likely been surgically resected. Small bilateral fat- containing inguinal hernias. No free intraperitoneal gas or fluid. No pathologically enlarged abdominal or pelvic lymphadenopathy. Mild thoracolumbar dextroscoliosis with severe spondylosis. IMPRESSION: 1. No acute intra-abdominal/pelvic process. 2. 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 Recommend nonemergent urologic consultation. 3. Small bilateral pleural effusions with associated dependent atelectasis in both lower lobes, right greater than left. 4. Mild cardiomegaly. Reviewed, dictated and finalized at location A. [employer] OFFICER Pulse Oximetry SpO2 results: 93-94% on room air Attestation: I personally reviewed and interpreted this pulse oximetry as follows: Interpretation: No need for supplemental oxygenation at this time ECG Attestation: I personally reviewed and interpreted this ECG as follows: ECG completion date: 01/28/25 ECG completion time: 12:14 Prior ECG tracings: available for review Interpretation: Atrial fibrillation rate of 97 QRS duration 154 with a left bundle branch block QTC 423 QTC 539 QRS axis 17? no significant change from EKG previous day Quality VTE Prophylaxis VTE prophylaxis: pharmacologic ordered (Transitioned from Lovenox to Eliquis on 01/28) Hospitalist MIPS Advance Care Plan I have confirmed that the patient's Advanced Care Plan is present, code status is documented, or surrogate decision maker is listed in patient medical record.: Yes Medication Reconciliation I have utilized all available resources to obtain, update and review the patients current medications (includes all prescriptions, OTC, herbals, cannabis, and nutritional supplements).: Yes
[2025-01-28] MEDS: BISACODYL 5 MG TABLET EC 10 MG PO (20:32)
[2025-01-28] MEDS: MELATONIN 5 MG TABLET 10 MG PO (20:33)
[2025-01-29] VITALS (13 sets, daily range): BP systolic 91–130; BP diastolic 35–102; PULSE 73–110; RESP 18–20; TEMP 36.3–37; O2SAT 90–100
[2025-01-29 05:53] LABS: Hematocrit 43.2 % (37.0-47.0); Hemoglobin 13.1 g/dL (12.0-15.0); Immature Platelet Fraction Pct 4.3 % (0.9-11.2); Mean Corpuscular HGB Conc 30.3 g/dl (32-36); Mean Corpuscular Hemoglobin 29.8 pg (26-34); Mean Corpuscular Volume 98.2 fl (80-100); Platelet Count Result 345 k/mm3 (150-375); Red Blood Count 4.40 M/mm3 (4.2-5.4); White Blood Count 6.1 K/mm3 (4.5-10.0)
[2025-01-29 06:08] LABS: Anion Gap 3 mmol/L (4-12); Blood Urea Nitrogen 21 mg/dL (7-17); Calcium 8.8 mg/dL (8.4-10.2); Carbon Dioxide 36 mmol/L (22-30); Chloride 97 mmol/L (98-107); Estimated CRCL calculation 65 ml/min; Estimated Glomerular Filt Rate > 60; Glucose 90 mg/dL (65-110); Magnesium 2.5 mg/dL (1.6-2.3); Potassium 4.0 mmol/L (3.4-5.0); Sodium 136 mmol/L (137-145)
[2025-01-29] MEDS: DOCUSATE SODIUM 100 MG CAPSULE PO (08:21)
[2025-01-29] MEDS: ATORVASTATIN 40 MG TABLET PO (08:21)
[2025-01-29] MEDS: APIXABAN 5 MG TABLET PO (08:21)
[2025-01-29] MEDS: AMIODARONE HCL 200 MG TABLET PO (08:21)
[2025-01-29] MEDS: SENNOSIDES 8.6 MG TABLET PO (08:21)
[2025-01-29] MEDS: PREGABALIN (*CRX) 75 MG CAPSULE PO (08:21)
[2025-01-29] MEDS: MAGNESIUM OXIDE 400 MG TABLET PO (08:21)
[2025-01-29] MEDS: ALPRAZolam (*CRX) 0.25 MG TABLET BY MOUTH (08:21)
--- NOTE | 2025-01-29 08:36 | P.PNIM_ITS ---
Progress Note: A&P Assessment and Plan (1) Atrial fibrillation: Code(s): I48.91 - Unspecified atrial fibrillation Status: Acute Assessment and Plan: * unclear if new onset or chronic (patient feels symptoms began a week ago) * was started on IV amiodarone and rate is better controlled. Appears still in afib however, on tele monitor, will update EKG * will change to oral amiodarone 200 mg BID and plan f/u in office in the next 2-4 weeks and can consider OP CV if remains in atrial fibrillation * on Eliquis 5 mg BID for AC risk/benefits of AC discussed with patient and understanding was verbalized. * her TSH is wnl. Keep K>4 and Mag >2 * Switched to Amiodarone 200mg BID * Cardiology will set up outpatient Cardioversion in 3-4 weeks (2) Elevated brain natriuretic peptide (BNP) level: Code(s): R79.89 - Other specified abnormal findings of blood chemistry Status: Acute Assessment and Plan: * most likely acute CHF in setting of afib with RVR * echo shows severe systolic dysfunction with EF of 25-30%, with mild to moderate MR and mod pulm HTN * her pBNP was elevated at 1710 and CXR revealed pleural effusion * has been on IV lasix and appears better compensated would shift to PO in am * will resume her losartan 25 mg daily in setting of new cardiomyopathy (3) Hypertension: Code(s): I10 - Essential (primary) hypertension Status: Acute Assessment and Plan: * Blood pressure stable this am * Will resume losartan 25 mg daily * would continue to hold norvasc to allow other GDMT in setting of cardiomyop athy (4) Hyperlipidemia: Code(s): E78.5 - Hyperlipidemia, unspecified Status: Acute Assessment and Plan: * continue atorvastatin 40 mg daily (5) DM2 (diabetes mellitus, type 2): Code(s): E11.9 - Type 2 diabetes mellitus without complications Status: Acute Assessment and Plan: * Fingerstick glucose with meals and before bed * 20% reduction in glargine dose now 54 units daily while hospitalized * Low-dose sliding scale insulin added * A1c was 6.3 on admission (6) Chronic back pain: Code(s): M54.9 - Dorsalgia, unspecified; G89.29 - Other chronic pain Status: Acute Assessment and Plan: * Discontinue morphine and home oxycodone * Initiate duloxetine for depression with potential secondary benefit chronic pain management (7) Edema, peripheral: Code(s): R60.0 - Localized edema Status: Acute Assessment and Plan: * most likely secondary to acute volume overload * will monitor with diuresis * has improved * Switched to oral furosemide 01/29 (8) Cardiomyopathy: Code(s): I42.9 - Cardiomyopathy, unspecified Status: Acute Assessment and Plan: * new cardiomyopathy. EF of 25-30% per echo * unclear if ischemic or non-ischemic * may be rate related in setting of atrial fibrillation * her troponin were negative this admission * will plan OP f/u and possible stress test and repeat echo * continue losartan 25 mg daily. No BB d/t bradycardia at night * consider SGLT-2 Plan * Transitioned to amiodarone 200 mg BID * resume losartan * Patient remains in atrial fibrillation with rate in the 90s to 110s * plan OP f/u for possible ischemic evaluation and cardioversion Subjective Date/time seen: 01/29/25 08:36 Interval history: 74-year-old female patient admitted to the hospital for severe swelling related to congestive heart failure as well as atrial fibrillation with rapid ventricular rate. Blood pressure had been on the low side unable to use standard rate controlling medications. Patient received amiodarone which did improve her rate though she remained in atrial fibrillation. 01/29/2025 Patient sitting comfortably med at time of examination. Denies any chest pain, shortness of breath, nausea/vomiting or abdominal pain. Has been switched to amiodarone 20 mg p.o b.i.d.. Resuming losartan. Cardiology will set up outpatient cardioversion. Likely ready for discharge back to [facility] facility, but they will need to come and reassess the patient if she is stable to come back. Review of Systems Review of Systems: All systems reviewed & are unremarkable except as noted in HPI and below Exam Const: General: cooperative, healthy appearing, comfortable, no acute distress, well developed, awake, Physically active, average body habitus and well nourished Nutritional Appearance: average body habitus and well nourished Orientation/consciousness: oriented to person, oriented to place, oriented to time and patient oriented x3 Limitations: no limitations HENMT: Head: normal to inspection, No palpable skull fracture present, normocephalic, atraumatic and abrasion Ears: hearing grossly normal bilaterally Eyes: General: appearance normal, both eyes and all related structures Alignment and Position: alignment normal Periorbital: periorbital findings normal Eyelids: eyelids normal EOM: EOMs intact bilaterally Neck: Neck: normal visual inspection, full ROM, trachea midline and No no JVD Thyroid: thyroid normal Carotids: no bruits Lymphatic: no lymphadenopathy noted Chest: Chest palpation & inspection: normal inspection of the chest Resp: Effort & Inspection: normal respiratory effort Auscultation: clear to auscultation bilaterally and diminished lung sounds Cardio: Palpation: normal PMI Rate: regular rate and tachycardic Rhythm: abnormal rhythm irregularly irregular Heart sounds: S1 normal heart sound present, S2 normal heart sound present, no gallops, no murmurs and no rubs Peripheral pulses: Peripheral pulses 2+ throughout Other: AFib GI: Inspection: distended, Pannus present and obesity Auscultation: normal bowel sounds Rectal Exam: deferred Skin: General skin exam: normal color and no erythema Lesions: no lesions Rashes: no rashes Trauma: no lacerations or abrasions Wounds: no wounds Hair: normal Nails: normal Neuro: General: oriented to person, oriented to place, oriented to time and patient oriented x3 Cranial nerves: Yes Normal hearing present Cognition (Neuro): normal cognition Speech: normal speech Sensory Exam: normal sensation Other: A central tremors to bilateral hand is with movement Extrem: General: normal to inspection and edema bilateral Right upper extremity: normal to inspection and shoulder/upper arm Left upper extremity: normal to inspection and shoulder/upper arm Right lower extremity: normal to inspection Left lower extremity: normal to inspection Other: improved Psych: Appearance: grossly normal Mental Status: mental status grossly normal Speech and movement: Normal speech and movement present Affect: normal affect Attitude: cooperative Thought process: Normal thought process present Objective Data Vital Signs Vital Signs: Vital Signs - 24 hr 01/28/25 10:00 01/28/25 10:09 01/28/25 10:39 Temperature Pulse Rate 89 103 H 77 Respiratory Rate Blood Pressure 93/79 L Pulse Oximetry Oxygen Delivery 01/28/25 12:00 01/28/25 12:00 01/28/25 12:31 Temperature 97.8 F Pulse Rate 84 84 110 H Respiratory Rate 20 20 Blood Pressure 134/114 H Pulse Oximetry 93 93 Oxygen Delivery Room Air 01/28/25 14:00 01/28/25 16:00 01/28/25 16:00 Temperature Pulse Rate 75 75 75 Respiratory Rate 20 Blood Pressure Pulse Oximetry 94 Oxygen Delivery Room Air 01/28/25 16:21 01/28/25 17:27 01/28/25 18:00 Temperature 98.1 F Pulse Rate 89 106 H 107 H Respiratory Rate 20 Blood Pressure 105/83 Pulse Oximetry 94 Oxygen Delivery 01/28/25 18:07 01/28/25 20:00 01/28/25 20:00 Temperature 98 F Pulse Rate 94 75 90 Respiratory Rate 20 20 Blood Pressure 96/69 L 135/91 H Pulse Oximetry 90 90 Oxygen Delivery Room Air 01/28/25 20:00 01/28/25 22:00 01/29/25 00:00 Temperature Pulse Rate 90 88 80 Respiratory Rate 20 Blood Pressure Pulse Oximetry 90 Oxygen Delivery Room Air 01/29/25 00:00 01/29/25 00:00 01/29/25 02:00 Temperature 97.9 F Pulse Rate 80 80 84 Respiratory Rate 18 Blood Pressure 122/84 Pulse Oximetry 100 Oxygen Delivery 01/29/25 04:00 01/29/25 04:00 01/29/25 04:00 Temperature 97.8 F Pulse Rate 98 98 73 Respiratory Rate 18 18 Blood Pressure 120/85 Pulse Oximetry 100 92 Oxygen Delivery Room Air 01/29/25 06:00 01/29/25 08:22 Temperature 98.6 F Pulse Rate 88 89 Respiratory Rate 20 Blood Pressure 91/35 L Pulse Oximetry 94 Oxygen Delivery Intake/Output Intake/Output: Intake & Output 01/26/25 01/27/25 01/28/25 01/29/25 23:59 23:59 23:59 23:59 Intake Total 1166.2 1361.3 150 Output Total 50 0770 1900 600 Balance -50 -1683.8 -538.7 -450 Meds/Results Medications: Active Medications Generic Name Dose Route Start Last Admin Trade Name Freq PRN Reason Stop Dose Admin Acetaminophen 650 mg 01/26/25 20:06 Acetaminophen 325 Mg Tablet PO Q4H PRN Mild Pain (1-3) or Fever Alprazolam 0.25 mg 01/27/25 09:00 01/28/25 17:28 Alprazolam (*Crx) 0.25 Mg Tablet BY MOUTH 0.25 mg BID JEY Administration Amiodarone HCl 200 mg 01/28/25 10:00 01/28/25 17:27 Amiodarone Hcl 200 Mg Tablet PO 200 mg BID JEY Administration Apixaban 5 mg 01/28/25 09:00 01/28/25 20:33 Apixaban 5 Mg Tablet PO 5 mg Q12HR JEY Administration Atorvastatin Calcium 40 mg 01/27/25 09:00 01/28/25 09:10 Atorvastatin 40 Mg Tablet PO 40 mg DAILY JEY Administration Bisacodyl 10 mg 01/27/25 21:00 01/28/25 20:32 Bisacodyl 5 Mg Tablet Ec PO 10 mg HS JEY Administration Dextrose 12.5 gm 01/27/25 03:47 Dextrose 50% 25 Gm/50 Ml Syringe IV PUSH PRN PRN Hypoglycemia Protocol Diclofenac Sodium 1 applic 01/27/25 09:00 01/28/25 20:33 Diclofenac Sodium 1% 100 Gm Gel (*Bkc) TOPICAL Not Given QID [facility] Docusate Sodium 100 mg 01/27/25 09:00 01/28/25 09:10 Docusate Sodium 100 Mg Capsule PO 100 mg DAILY JEY Administration Duloxetine HCl 30 mg 01/29/25 09:00 Duloxetine Hcl 30 Mg Capsule.Dr [facility] Ergocalciferol 50,000 mcg 01/27/25 09:00 01/27/25 17:03 Ergocalciferol (Vitamin D2) 1,250 Mcg (50,000 Units) Capsule PO Not Given WEEKLY [facility] Glucagon 1 mg 01/27/25 03:47 Glucagon For Inj 1 Mg Vial IM PRN PRN Hypoglycemia Protocol Glucose 15 gm 01/27/25 03:47 Glucose Oral Gel 15 Gm Of Glucse In 37.5 Gm Tube PO PRN PRN Hypoglycemia Protocol Dextrose 1,000 mls @ 100 mls/hr 01/27/25 03:47 Dextrose 5% 1,000 Ml IVPB PRN PRN Hypoglycemia Protocol Insulin Aspart 2 - 5 units 01/27/25 08:00 01/28/25 17:28 Insulin Aspart (*Bkc) 100 Units/Ml SUB-Q Not Given TIDWM [facility] Protocol Insulin Glargine 54 units 01/27/25 09:00 01/28/25 09:07 Insulin Glargine (*Bkc) 100 Units/Ml SUB-Q 54 units DAILY JEY Administration Losartan Potassium 25 mg 01/27/25 09:00 Losartan Potassium 25 Mg Tablet PO DAILY JEY Magnesium Oxide 400 mg 01/27/25 09:00 01/28/25 20:33 Magnesium Oxide 400 Mg Tablet PO 400 mg Q12HR JEY Administration Melatonin 10 mg 01/27/25 21:00 01/28/25 20:33 Melatonin 5 Mg Tablet PO 10 mg HS JEY Administration Mirabegron 50 mg 01/27/25 09:00 01/28/25 09:09 Mirabegron 50 Mg Er Tablet PO 50 mg DAILY JEY Administration Ondansetron HCl 4 mg 01/27/25 01:34 Ondansetron Hcl Odt 4 Mg Tablet PO Q8H PRN Nausea And Vomiting Pregabalin 75 mg 01/27/25 09:00 01/28/25 17:27 Pregabalin (*Crx) 75 Mg Capsule PO 75 mg BID JEY Administration Quetiapine Fumarate 25 mg 01/27/25 21:00 01/28/25 20:33 Quetiapine Fumarate 25 Mg Tablet PO 25 mg HS JEY Administration Senna 8.6 mg 01/27/25 09:00 01/28/25 20:33 Sennosides 8.6 Mg Tablet PO 8.6 mg Q12HR JEY Administration Tizanidine HCl 2 mg 01/27/25 01:34 Tizanidine Hcl 2 Mg Tablet PO Q8H PRN Muscle Spasticity Radiology Results: ITS Impressions Head CT 01/26/25 14:44 IMPRESSION: 1. No large acute ischemic event, mass effect or hemorrhage. 2. Chronic findings as above. Venous Doppler Study 01/26/25 15:11 IMPRESSION: 1. No evidence of DVT noted in both lower extremities. 2. If clinical suspicion of DVT persists repeat study is recommended after one week for reevaluation to rule out extension of thrombus from the calf. Chest X-Ray 01/26/25 15:22 IMPRESSION: 1. Cardiomegaly with atherosclerotic aorta. 2. [id number] right pleural effusion. Minimal blunting of left costop hrenic angle. Abdomen/Pelvis CT 01/27/25 08:29 IMPRESSION: 1. No acute intra-abdominal/pelvic process. 2. 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 Recommend nonemergent urologic consultation. 3. Small bilateral pleural effusions with associated dependent atelectasis in both lower lobes, right greater than left. 4. Mild cardiomegaly. Labs Labs: Laboratory Results - last 24 hr 01/28/25 01/28/25 01/28/25 10:57 15:22 21:17 WBC RBC Hgb Hct MCV MCH MCHC RDW Plt Count MPV % Immature Plt Fraction Sodium Potassium Chloride Carbon Dioxide Anion Gap BUN Creatinine Estim Creat Clear Calc Estimated GFR Glucose POC Capillary Glucose 128 H 151 H 103 Calcium Magnesium 01/29/25 01/29/25 05:45 07:10 WBC 6.1 RBC 4.40 Hgb 13.1 Hct 43.2 MCV 98.2 MCH 29.8 MCHC 30.3 L RDW 13.9 Plt Count 345 MPV 9.7 % Immature Plt Fraction 4.3 Sodium 136 L Potassium 4.0 Chloride 97 L Carbon Dioxide 36 H Anion Gap 3 L BUN 21 H Creatinine 0.85 Estim Creat Clear Calc 65 Estimated GFR > 60 Glucose 90 POC Capillary Glucose 76 Calcium 8.8 Magnesium 2.5 H Quality VTE Prophylaxis VTE prophylaxis: pharmacologic ordered (Transitioned from Lovenox to Eliquis on 01/28)
[2025-01-29] MEDS: DICLOFENAC SODIUM 1% 100 GM GEL (*BKC) 1 APPLIC TOPICAL ×2 (08:38→12:04)
[2025-01-29] MEDS: FUROSEMIDE 40 MG TABLET PO (08:42)
--- NOTE | 2025-01-29 08:44 | PC.NURSE ---
This RN notified SHAKILA Peck of pt's blood glucose of 76. Pt is to receive 54 units of Lantus. Pt has only eaten about 50% of her breakfast. New order to hold Lantus and recheck blood glucose in a hour. RN also notified PA of pt's BP of 91/35. New order to hold Losartan and to administer PO Lasix and Amiodarone.
--- NOTE | 2025-01-29 09:12 | P.PNCA_ITS ---
Progress Note: A&P Assessment and Plan (1) Atrial fibrillation: Code(s): I48.91 - Unspecified atrial fibrillation Status: Acute Assessment and Plan: * unclear if new onset or chronic (patient feels symptoms began a week ago) * was started on IV amiodarone and rate is better controlled, remains in AF * will change to oral amiodarone 200 mg BID and plan f/u in office in the next 2-4 weeks and can consider OP CV if remains in atrial fibrillation * on Eliquis 5 mg BID for AC risk/benefits of AC discussed with patient and understanding was verbalized. * her TSH is wnl. Keep K>4 and Mag >2 (2) Elevated brain natriuretic peptide (BNP) level: Code(s): R79.89 - Other specified abnormal findings of blood chemistry Status: Acute Assessment and Plan: * most likely acute CHF in setting of afib with RVR * echo shows severe systolic dysfunction with EF of 25-30%, with mild to moderate MR and mod pulm HTN * her pBNP was elevated at 1710 and CXR revealed pleural effusion * Has been shifted to p.o. lasix * will resume her losartan 25 mg daily in setting of new cardiomyopathy (3) Hypertension: Code(s): I10 - Essential (primary) hypertension Status: Acute Assessment and Plan: * Blood pressure at goal * Continue losartan 25mg daily * would continue to hold norvasc to allow other GDMT in setting of cardiomyopathy (4) Hyperlipidemia: Code(s): E78.5 - Hyperlipidemia, unspecified Status: Acute Assessment and Plan: * continue atorvastatin 40 mg daily (5) DM2 (diabetes mellitus, type 2): Code(s): E11.9 - Type 2 diabetes mellitus without complications Status: Acute Assessment and Plan: * glycemic control as per primary team (6) Chronic back pain: Code(s): M54.9 - Dorsalgia, unspecified; G89.29 - Other chronic pain Status: Acute Assessment and Plan: * pain management as per primary team (7) Edema, peripheral: Code(s): R60.0 - Localized edema Status: Acute Assessment and Plan: Resolved (8) Cardiomyopathy: Code(s): I42.9 - Cardiomyopathy, unspecified Status: Acute Assessment and Plan: * new cardiomyopathy. EF of 25-30% per echo * unclear if ischemic or non-ischemic * may be rate related in setting of atrial fibrillation * her troponin were negative this admission * will plan OP f/u and possible stress test and repeat echo * continue losartan 25 mg daily. No BB d/t bradycardia at night * consider SGLT-2 Plan * will transition to amiodarone 200 mg BID * resume losartan * plan OP f/u for possible ischemic evaluation and cardioversion * Cardiology will follow along on an as needed basis Subjective Date/time seen: 01/29/25 09:12 Interval history: Cardiology follow up visit for AF, CHF, CMP Date of Service 01/28/25: Patient is sitting up in bed. No c/o any chest pain or shortness of breath at this time. Her LE edema has improved. Date of service 01/29/2025: She is feeling well today. She denies any shortness of breath, swelling, chest pain, palpitations. Review of Systems Review of Systems: All systems reviewed & are unremarkable except as noted in HPI and below Exam Const: General: no acute distress Neck: Neck: No no JVD Thyroid: thyroid normal Carotids: no bruits Resp: Effort & Inspection: normal respiratory effort Auscultation: diminished lung sounds Cardio: Rate: regular rate Rhythm: abnormal rhythm Heart sounds: no gallops, no murmurs and no rubs Skin: General skin exam: normal color and no erythema Extrem: General: no edema Other: improved Psych: Mental Status: mental status grossly normal Objective Data Vital Signs Vital Signs: Vital Signs - 24 hr 01/28/25 10:00 01/28/25 10:09 01/28/25 10:39 Temperature Pulse Rate 89 103 H 77 Respiratory Rate Blood Pressure 93/79 L Pulse Oximetry Oxygen Delivery 01/28/25 12:00 01/28/25 12:00 01/28/25 12:31 Temperature 36.6 C Pulse Rate 84 84 110 H Respiratory Rate 20 20 Blood Pressure 134/114 H Pulse Oximetry 93 93 Oxygen Delivery Room Air 01/28/25 14:00 01/28/25 16:00 01/28/25 16:00 Temperature Pulse Rate 75 75 75 Respiratory Rate 20 Blood Pressure Pulse Oximetry 94 Oxygen Delivery Room Air 01/28/25 16:21 01/28/25 17:27 01/28/25 18:00 Temperature 36.7 C Pulse Rate 89 106 H 107 H Respiratory Rate 20 Blood Pressure 105/83 Pulse Oximetry 94 Oxygen Delivery 01/28/25 18:07 01/28/25 20:00 01/28/25 20:00 Temperature 36.6 C Pulse Rate 94 75 90 Respiratory Rate 20 20 Blood Pressure 96/69 L 135/91 H Pulse Oximetry 90 90 Oxygen Delivery Room Air 01/28/25 20:00 01/28/25 22:00 01/29/25 00:00 Temperature Pulse Rate 90 88 80 Respiratory Rate 20 Blood Pressure Pulse Oximetry 90 Oxygen Delivery Room Air 01/29/25 00:00 01/29/25 00:00 01/29/25 02:00 Temperature 36.6 C Pulse Rate 80 80 84 Respiratory Rate 18 Blood Pressure 122/84 Pulse Oximetry 100 Oxygen Delivery 01/29/25 04:00 01/29/25 04:00 01/29/25 04:00 Temperature 36.6 C Pulse Rate 98 98 73 Respiratory Rate 18 18 Blood Pressure 120/85 Pulse Oximetry 100 92 Oxygen Delivery Room Air 01/29/25 06:00 01/29/25 08:21 01/29/25 08:22 Temperature 37.0 C Pulse Rate 88 102 H 89 Respiratory Rate 20 Blood Pressure 91/35 L Pulse Oximetry 94 Oxygen Delivery Intake/Output Intake/Output: Intake & Output 01/26/25 01/27/25 01/28/25 01/29/25 23:59 23:59 23:59 23:59 Intake Total 1166.2 1361.3 210 Output Total 50 2850 1900 600 Balance -50 -1683.8 -538.7 -390 Meds/Results Medications: Active Medications Generic Name Dose Route Start Last Admin Trade Name Frerasta PRN Reason Stop Dose Admin Acetaminophen 650 mg 01/26/25 20:06 Acetaminophen 325 Mg Tablet PO Q4H PRN Mild Pain (1-3) or Fever Alprazolam 0.25 mg 01/27/25 09:00 01/29/25 08:21 Alprazolam (*Crx) 0.25 Mg Tablet BY MOUTH 0.25 mg BID JEY Administration Amiodarone HCl 200 mg 01/28/25 10:00 01/29/25 08:21 Amiodarone Hcl 200 Mg Tablet PO 200 mg BID JEY Administration Apixaban 5 mg 01/28/25 09:00 01/29/25 08:21 Apixaban 5 Mg Tablet PO 5 mg Q12HR JEY Administration Atorvastatin Calcium 40 mg 01/27/25 09:00 01/29/25 08:21 Atorvastatin 40 Mg Tablet PO 40 mg DAILY JEY Administration Bisacodyl 10 mg 01/27/25 21:00 01/28/25 20:32 Bisacodyl 5 Mg Tablet Ec PO 10 mg HS JEY Administration Dextrose 12.5 gm 01/27/25 03:47 Dextrose 50% 25 Gm/50 Ml Syringe IV PUSH PRN PRN Hypoglycemia Protocol Diclofenac Sodium 1 applic 01/27/25 09:00 01/29/25 08:38 Diclofenac Sodium 1% 100 Gm Gel (*Bkc) TOPICAL 1 applic QID JEY Administration Docusate Sodium 100 mg 01/27/25 09:00 01/29/25 08:21 Docusate Sodium 100 Mg Capsule PO 100 mg DAILY JEY Administration Duloxetine HCl 30 mg 01/29/25 09:00 01/29/25 08:21 Duloxetine Hcl 30 Mg Capsule.Dr PO 30 mg QAM JEY Administration Ergocalciferol 50,000 mcg 01/27/25 09:00 01/27/25 17:03 Ergocalciferol (Vitamin D2) 1,250 Mcg (50,000 Units) Capsule PO Not Given WEEKLY JEY Furosemide 40 mg 01/29/25 09:00 01/29/25 08:42 Furosemide 40 Mg Tablet PO 40 mg BID JEY Administration Glucagon 1 mg 01/27/25 03:47 Glucagon For Inj 1 Mg Vial IM PRN PRN Hypoglycemia Protocol Glucose 15 gm 01/27/25 03:47 Glucose Oral Gel 15 Gm Of Glucse In 37.5 Gm Tube PO PRN PRN Hypoglycemia Protocol Dextrose 1,000 mls @ 100 mls/hr 01/27/25 03:47 Dextrose 5% 1,000 Ml IVPB PRN PRN Hypoglycemia Protocol Insulin Aspart 2 - 5 units 01/27/25 08:00 01/29/25 08:22 Insulin Aspart (*Bkc) 100 Units/Ml SUB-Q Not Given TIDWM [facility] Protocol Insulin Glargine 54 units 01/27/25 09:00 01/28/25 09:07 Insulin Glargine (*Bkc) 100 Units/Ml SUB-Q 54 units DAILY JEY Administration Losartan Potassium 25 mg 01/27/25 09:00 01/29/25 08:34 Losartan Potassium 25 Mg Tablet PO Not Given DAILY JEY Magnesium Oxide 400 mg 01/27/25 09:00 01/29/25 08:21 Magnesium Oxide 400 Mg Tablet PO 400 mg Q12HR JEY Administration Melatonin 10 mg 01/27/25 21:00 01/28/25 20:33 Melatonin 5 Mg Tablet PO 10 mg HS JEY Administration Mirabegron 50 mg 01/29/25 21:00 Mirabegron 50 Mg Er Tablet PO HS JEY Ondansetron HCl 4 mg 01/27/25 01:34 Ondansetron Hcl Odt 4 Mg Tablet PO Q8H PRN Nausea And Vomiting Pregabalin 75 mg 01/27/25 09:00 01/29/25 08:21 Pregabalin (*Crx) 75 Mg Capsule PO 75 mg BID JEY Administration Quetiapine Fumarate 25 mg 01/27/25 21:00 01/28/25 20:33 Quetiapine Fumarate 25 Mg Tablet PO 25 mg HS JEY Administration Senna 8.6 mg 01/27/25 09:00 01/29/25 08:21 Sennosides 8.6 Mg Tablet PO 8.6 mg Q12HR JEY Administration Tizanidine HCl 2 mg 01/27/25 01:34 Tizanidine Hcl 2 Mg Tablet PO Q8H PRN Muscle Spasticity Radiology Results: ITS Impressions Head CT 01/26/25 14:44 IMPRESSION: 1. No large acute ischemic event, mass effect or hemorrhage. 2. Chronic findings as above. Venous Doppler Study 01/26/25 15:11 IMPRESSION: 1. No evidence of DVT noted in both lower extremities. 2. If clinical suspicion of DVT persists repeat study is recommended after one week for reevaluation to rule out extension of thrombus from the calf. Chest X-Ray 01/26/25 15:22 IMPRESSION: 1. Cardiomegaly with atherosclerotic aorta. 2. [id number] right pleural effusion. Minimal blunting of left costophrenic angle. Abdomen/Pelvis CT 01/27/25 08:29 IMPRESSION: 1. No acute intra-abdominal/pelvic process. 2. 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 Recommend nonemergent urologic consultation. 3. Small bilateral pleural effusions with associated dependent atelectasis in both lower lobes, right greater than left. 4. Mild cardiomegaly. Labs Labs: Laboratory Results - last 24 hr 01/28/25 01/28/25 01/28/25 10:57 15:22 21:17 WBC RBC Hgb Hct MCV MCH MCHC RDW Plt Count MPV % Immature Plt Fraction Sodium Potassium Chloride Carbon Dioxide Anion Gap BUN Creatinine Estim Creat Clear Calc Estimated GFR Glucose POC Capillary Glucose 128 H 151 H 103 Calcium Magnesium 01/29/25 01/29/25 01/29/25 05:45 07:10 08:58 WBC 6.1 RBC 4.40 Hgb 13.1 Hct 43.2 MCV 98.2 MCH 29.8 MCHC 30.3 L RDW 13.9 Plt Count 345 MPV 9.7 % Immature Plt Fraction 4.3 Sodium 136 L Potassium 4.0 Chloride 97 L Carbon Dioxide 36 H Anion Gap 3 L BUN 21 H Creatinine 0.85 Estim Creat Clear Calc 65 Estimated GFR > 60 Glucose 90 POC Capillary Glucose 76 118 H Calcium 8.8 Magnesium 2.5 H Quality VTE Prophylaxis VTE prophylaxis: pharmacologic ordered (Transitioned from Lovenox to Eliquis on 01/28)
[2025-01-29] MEDS: INSULIN GLARGINE (*BKC) 100 UNITS/ML 54 UNITS SUB-Q (09:22)
--- NOTE | 2025-01-29 14:36 | P.DS_ITS ---
DS: Admitting Diagnosis Discharge Date 01/29/2025 Admitting Diagnosis A fib, edema DS: Discharge Diagnosis Discharge Diagnosis (1) Atrial fibrillation: Code(s): I48.91 - Unspecified atrial fibrillation Status: Acute Assessment and Plan: * unclear if new onset or chronic (patient feels symptoms began a week ago) * was started on IV amiodarone and rate is better controlled. Appears still in afib however, on tele monitor, will update EKG * will change to oral amiodarone 200 mg BID and plan f/u in office in the next 2-4 weeks and can consider OP CV if remains in atrial fibrillation * on Eliquis 5 mg BID for AC risk/benefits of AC discussed with patient and understanding was verbalized. * her TSH is wnl. Keep K>4 and Mag >2 * Switched to Amiodarone 200mg BID * Cardiology will set up outpatient Cardioversion in 3-4 weeks (2) Elevated brain natriuretic peptide (BNP) level: Code(s): R79.89 - Other specified abnormal findings of blood chemistry Status: Acute Assessment and Plan: * most likely acute CHF in setting of afib with RVR * echo shows severe systolic dysfunction with EF of 25-30%, with mild to moderate MR and mod pulm HTN * her pBNP was elevated at 1710 and CXR revealed pleural effusion * has been on IV lasix and appears better compensated would shift to PO in am * will resume her losartan 25 mg daily in setting of new cardiomyopathy (3) Hypertension: Code(s): I10 - Essential (primary) hypertension Status: Acute Assessment and Plan: * Blood pressure stable this am * Will resume losartan 25 mg daily * would continue to hold norvasc to allow other GDMT in setting of cardiomyopathy (4) Hyperlipidemia: Code(s): E78.5 - Hyperlipidemia, unspecified Status: Acute Assessment and Plan: * continue atorvastatin 40 mg daily (5) DM2 (diabetes mellitus, type 2): Code(s): E11.9 - Type 2 diabetes mellitus without complications Status: Acute Assessment and Plan: * Fingerstick glucose with meals and before bed * 20% reduction in glargine dose now 54 units daily while hospitalized * Low-dose sliding scale insulin added * A1c was 6.3 on admission (6) Chronic back pain: Code(s): M54.9 - Dorsalgia, unspecified; G89.29 - Other chronic pain Status: Acute Assessment and Plan: * Discontinue morphine and home oxycodone * Initiate duloxetine for depression with potential secondary benefit chronic pain management (7) Edema, peripheral: Code(s): R60.0 - Localized edema Status: Acute Assessment and Plan: * most likely secondary to acute volume overload * will monitor with diuresis * has improved * Switched to oral furosemide 01/29 (8) Cardiomyopathy: Code(s): I42.9 - Cardiomyopathy, unspecified Status: Acute Assessment and Plan: * new cardiomyopathy. EF of 25-30% per echo * unclear if ischemic or non-ischemic * may be rate related in setting of atrial fibrillation * her troponin were negative this admission * will plan OP f/u and possible stress test and repeat echo * continue losartan 25 mg daily. No BB d/t bradycardia at night * consider SGLT-2 Plan * Transitioned to amiodarone 200 mg BID * resume losartan * Patient remains in atrial fibrillation with rate in the 90s to 110s * plan OP f/u for possible ischemic evaluation and cardioversion DS: Summary Hospital Course Reason for hospitalization: Altered mental status. Hospital Course: Per HPI: This is a 74-year-old female patient who is from [facility]. According to the staff the patient has had some confusion on and off for the last 4 days. The family also noticed that the patient was retaining fluid in her legs. [facility] The patient stated that she had not been taking her Lasix as often as she should because it makes her urinate so frequently. The patient was recently diagnosed with the urinary tract infection but was not started on any antibiotics as of yet. The patient had a history of meningioma with surgical intervention. The family was concerned that she may have a brain tumor. The patient is noted to have multiple medications such as pain medication and muscle relaxers. EKG was read as atrial fibrillation with a heart rate in the 90s. The patient was started on subcu Lovenox and given Lasix IV push. Chest x-ray was read as cardiomegaly with atherosclerotic aorta. Small to moderate right pleural effusion minimal blunting in left costophrenic angle. Venous Dopplers were performed no evidence of DVT noted in both lower extremities. Head CT no large acute ischemic event mass effect or hemorrhage. Postsurgical findings were chronic. Moderate-sized area of encephalomalacia in the left frontal region. Troponins were negative x3. BNP 1710. Urine shows 1+ protein, urine ketones trace. The patient is being admitted to observation status on the date of service of 01/27/2025. Hospital course: Patient has new onset atrial fibrillation with a rate in the lower 100s. Echocardiogram was obtained which showed the followin. Patient unable to lay on L side. 2. Left ventricular chamber dimension is mildly enlarged. 3. Left ventricular systolic function is severely reduced, estimated at 25-30. 4. There is mildly increased left ventricular wall thickness. 5. The left ventricular diastolic function is abnormal. 6. Left atrial chamber dimension is moderately enlarged. 7. Right atrial chamber dimension is mildly enlarged. 8. There is moderate aortic valve stenosis with a peak velocity of 261 cm/s, mean gradient of 16 mmHg, and aortic valve area of 1.3 cm2. 9. There is mild aortic valve regurgitation. 10. There is moderate aortic valve calcification. 11. There is mild to moderate mitral valve regurgitation. 12. The mitral valve annulus is severely calcified. 13. There is mild tricuspid valve regurgitation. 14. Moderate pulmonary hypertension, estimated pulmonary arterial systolic pressure is 47 mmHg. Cardiology consulted -unclear if atrial fibrillation is new or chronic, however the patient feels as though the symptoms began 1 week prior to admission. Amiodarone was initiated for rate control and possible conversion to normal sinus rhythm. Eliquis was initiated during admission and will be continued upon discharge. She did also appear to be volume overloaded on exam upon admission, however she states that she has been not taking her Lasix as directed as she was complaining about frequent urination. Rate was better maintained on IV amiodarone but she remained in atrial fibrillation. This was eventually changed to 200 mg b.i.d. oral amiodarone and Cardiology would recommend following up in their office in the next 2-4 weeks and may consider an outpatient cardioversion if she remains in atrial fibrillation. Recommend continuing Eliquis 5 mg b.i.d.. Would recommend resuming losartan 25 mg daily in the setting of new cardiomyopathy. On 01/29, patient continued to be asymptomatic although continues to be in AFib. She denies any shortness of breath, nausea/vomiting, chest pain or dizziness. Lower extremity swelling continues to improve. Cardiology reassess the patient and cleared her for discharge and has given her proper follow-up instructions in 2-4 weeks. She is otherwise hemodynamically stable and can be discharged back to [place] at this time. Status at Discharge Functional status at discharge: uses cane/walker Overall status at discharge: patient is progressing back to baseline Time Spent with Patient Time attestation: Total time spent providing and/or coordinating discharge services: 30 Exam Const: General: cooperative, healthy appearing, comfortable, no acute distress, well developed, awake, Physically active, average body habitus and well nourished Nutritional Appearance: average body habitus and well nourished Orientation/consciousness: oriented to person, oriented to place, oriented to time and patient oriented x3 Limitations: no limitations HENMT: Head: normal to inspection, No palpable skull fracture present, normocephalic, atraumatic and abrasion Ears: hearing grossly normal bilaterally Eyes: General: appearance normal, both eyes and all related structures Alignment and Position: alignment normal Periorbital: periorbital findings normal Eyelids: eyelids normal EOM: EOMs intact bilaterally Neck: Neck: normal visual inspection, full ROM, trachea midline and No no JVD Thyroid: thyroid normal Carotids: no bruits Lymphatic: no lymphadenopathy noted Chest: Chest palpation & inspection: normal inspection of the chest Resp: Effort & Inspection: normal respiratory effort Auscultation: clear to auscultation bilaterally and diminished lung sounds Cardio: Rate: regular rate Rhythm: abnormal rhythm irregularly irregular Heart sounds: S1 normal heart sound present, S2 normal heart sound present, no gallops, no murmurs and no rubs Peripheral pulses: Peripheral pulses 2+ throughout Other: AFib GI: Inspection: distended and obesity Auscultation: normal bowel sounds Skin: General skin exam: normal color and no erythema Lesions: no lesions Rashes: no rashes Trauma: no lacerations or abrasions Wounds: no wounds Hair: normal Nails: normal Neuro: General: oriented to person, oriented to place, oriented to time and patient oriented x3 Cranial nerves: Yes Normal hearing present Cognition (Neuro): normal cognition Speech: normal speech Sensory Exam: normal sensation Other: A central tremors to bilateral hand is with movement Extrem: General: normal to inspection and edema bilateral Right upper extre mity: normal to inspection and shoulder/upper arm Left upper extremity: normal to inspection and shoulder/upper arm Right lower extremity: normal to inspection Left lower extremity: normal to inspection Other: improved Psych: Appearance: grossly normal Mental Status: mental status grossly normal Speech and movement: Normal speech and movement present Affect: normal affect Attitude: cooperative Thought process: Normal thought process present DS: Data Data Completed and Pending Labs on day of discharge: Labs from last 24 hours 01/29/25 01/29/25 01/29/25 11:28 08:58 07:10 WBC RBC Hgb Hct MCV MCH MCHC RDW Plt Count MPV % Immature Plt Fraction Sodium Potassium Chloride Carbon Dioxide Anion Gap BUN Creatinine Estim Creat Clear Calc Estimated GFR Glucose POC Capillary Glucose 89 118 H 76 Calcium Magnesium 01/29/25 01/28/25 01/28/25 05:45 21:17 15:22 WBC 6.1 RBC 4.40 Hgb 13.1 Hct 43.2 MCV 98.2 MCH 29.8 MCHC 30.3 L RDW 13.9 Plt Count 345 MPV 9.7 % Immature Plt Fraction 4.3 Sodium 136 L Potassium 4.0 Chloride 97 L Carbon Dioxide 36 H Anion Gap 3 L BUN 21 H Creatinine 0.85 Estim Creat Clear Calc 65 Estimated GFR > 60 Glucose 90 POC Capillary Glucose 103 151 H Calcium 8.8 Magnesium 2.5 H Discharge Plan Discharge Attending physician on discharge: Alphonse Chun Consulting providers: Jorge Luis Rudolph; Larry Tobias Discharging Clinician: Larry Tobias Anticipated Discharge Date/Time: 01/29/25 13:44 Patient Disposition: [facility] Activity: as tolerated Diet: regular Discharge Instructions: [facility]charge [facility] Take medications as prescribed. You will be continued on Amiodarone 200mg to be taken twice daily. Monitor blood pressures Take caution while standing, rising, or moving Change positions slowly taking a break between each position change If you standing feel dizzy sit back down and take a break Encouraged to continue with yearly vaccinations Return to the emergency department if you develop sudden shortness of breath, chest pain, nausea, vomiting, upset stomach or intractable diarrhea Return to the emergency department if you develop fever greater than 101.5 Follow-up with the primary care physician within 1-2 weeks Follow-up with cardiology in 3-4 weeks regarding outpatient cardioversion Thank you for [facility] for your healthcare needs Patient Instructions: Antibiotic Form, Enoxaparin (By injection), Heart Failure (GEN), How to Stop Smoking (GEN) Patient Language: Armenian Stand Alone Forms: General Discharge Information Follow-up/Referrals: Jorge Luis Rudolph MD [Physician, Cardiology] Ike,Bel Owen, STUDIO DESIGNER- [Primary Care Provider, Unknown] Discharge Medications: New amiodarone [Pacerone] 200 mg Tablet 200 mg PO BID Qty: 60 0RF Eliquis 5 mg Tablet 5 mg PO Q12HR Qty: 60 0RF Continued bisacodyl 5 mg tablet 10 mg PO HS morphine 15 mg tablet extended release 15 mg PO Q12H pregabalin 50 mg capsule 75 mg PO BID sennosides [Black-Draught Lax-Senna] 8.6 mg tablet 8.6 mg PO BID oxycodone 5 mg tablet 5 mg PO Q6H PRN (Reason: pain (scale score 7-10)) tizanidine 2 mg tablet 2 mg PO Q8H PRN (Reason: muscle spasticity) Arctic Relief 0.2-3.5 % gel 1 applic topical BID Rx Instructions: rub in gently and completely ondansetron 4 mg tablet,disintegrating 4 mg PO Q8H PRN (Reason: nausea and vomiting) Mounjaro 12.5 mg/0.5 mL pen injector 12.5 mg subcut WEEKLY quetiapine 25 mg tablet 25 mg PO HS atorvastatin 40 mg tablet 40 mg PO DAILY cyanocobalamin (vitamin B-12) 1,000 mcg tablet 1,000 mcg PO DAILY amlodipine 2.5 mg tablet 2.5 mg PO DAILY losartan 25 mg tablet 25 mg PO DAILY ergocalciferol (vitamin D2) [Vitamin D2] 1,250 mcg (50,000 unit) capsule 50,000 unit PO WEEKLY Patient Comments: TAKES ON TUESDAYS alprazolam 0.5 mg tablet extended release 24 hr 0.5 mg PO DAILY insulin glargine [Lantus Solostar U-100 Insulin] 100 unit/mL (3 mL) insulin pen 68 unit SUBCUT DAILY melatonin 5 mg tablet 10 mg PO HS mirabegron [Myrbetriq] 50 mg tablet extended release 24 hr 50 mg PO DAILY furosemide 40 mg Tablet 40 mg PO PRN PRN (Reason: Edema) triamcinolone acetonide 0.1 % Cream 1 applic TOPICAL PRN PRN (Reason: Itching) acetaminophen 650 mg Tablet Extended Release 1,300 mg PO Q8-10H PRN (Reason: pain (scale score 4-6)) magnesium oxide 400 mg (241.3 mg magnesium) tablet 400 mg PO BID docusate sodium 100 mg Tablet 100 mg PO DAILY diclofenac sodium 1 % gel 2 g TOPICAL QID Rx Instructions: apply to affected joint areas topically qid Discontinued ibuprofen 800 mg Tablet 800 mg PO TID PRN (Reason: pain (scale score 1-3)) Date of admission: 01/27/25 10:26 Primary Care Provider: Andrea,Bel Owen Admitting Provider: Ondina Victor Attending physician on admission: Ondina Victor Condition: Stable Quality VTE Prophylaxis VTE prophylaxis: pharmacologic ordered (Transitioned from Lovenox to Eliquis on 01/28)
== END 2025-01-29 16:14 | DRG 308 ==
LOC: ANHED 19:59 → ANHIMU 20:37
PROVIDERS: General Practice; Nurse Practitioner; Physician Assistant; Admitting Provider Student in an Organized Health Care Education/Training Program; Emergency Provider Emergency Medicine; PCP Nurse Practitioner Family; Visit Provider Physician Assistant
DX: I48.91 Unspecified atrial fibrillation (principal); I50.41 Acute combined systolic (congestive) and diastolic (congestive) heart failure; I11.0 Hypertensive heart disease with heart failure; I42.9 Cardiomyopathy, unspecified; R60.0 Localized edema; E11.40 Type 2 diabetes mellitus with diabetic neuropathy, unspecified; E03.9 Hypothyroidism, unspecified; E78.5 Hyperlipidemia, unspecified; M19.90 Unspecified osteoarthritis, unspecified site; M54.9 Dorsalgia, unspecified; G89.29 Other chronic pain; G20.A1 Parkinson's disease without dyskinesia, without mention of fluctuations; F41.9 Anxiety disorder, unspecified; F32.A Depression, unspecified; F17.210 Nicotine dependence, cigarettes, uncomplicated; Z86.011 Personal history of benign neoplasm of the brain; Z79.4 Long term (current) use of insulin
CPT/HCPCS: 36415; 70450; 71046; 74177; 80048; 80053; 81001; 82948; 83036; 83735; 83880; 84443; 84484; 85025; 85027; 85055; 85610; 85730; 93005; 93970; 96372; 97161; 99285; A9270; C8929; J0283; J1650; J1815; J1938; Q9957; Q9967